=== PATIENT | female | born 1970 | race Caucasian/White ===

== ENCOUNTER 2016-10-26 07:00 | Inpatient (IN) | payer OTHER ==
[2016-10-26] MEDS ORDERED: DEXAMETHASONE SOD PHOSPHATE 10 MG/1 ML VIAL IVPB ONE (12:00)
[2016-10-26] MEDS ORDERED: IRON SUCROSE INJECTION 200 MG in SODIUM CHLORIDE 100 ML IVPB ONE (12:00)
[2016-10-26 14:56] LABS: MCH 22.3 pg (25.7-33.7); PLATELET COUNT 340 K/MM3 (134-434); RDW 26.5 % (11.6-15.6); WHITE BLOOD COUNT 5.7 K/mm3 (4.0-10.0)
[2016-10-26 15:27] LABS: ALBUMIN 3.3 g/dl (3.4-5.0); ALK PHOS 101 U/L (45-117); ANION GAP 12 (8-16); BILIRUBIN,TOTAL 0.2 mg/dL (0.2-1.0); CALCIUM 7.7 mg/dL (8.5-10.1); CO2 19 mmol/L (21-32); CREATININE 0.7 mg/dL (0.55-1.02); GLUCOSE,RANDOM 160 mg/dL (74-106); SGOT/AST 20 U/L (15-37); SGPT/ALT 22 U/L (12-78); TOT PROT 6.2 g/dl (6.4-8.2)
--- NOTE | 2016-10-26 17:34 | CONSULT ---
Consult - text type - Consultation Consultation Note: - Chief Complaint Chief Complaint: Here for elective IV iron infusion. No fever/chills/cough/SOB/ abdominal pain. no active bleeding. Reports having felt oozy and dizzy last night around 1 am when she got up from sleep to go to the rest room. she felt dizzy and syncopized. she hit her head No urinary symptoms Recently had D and C. Also had EGD History Source: Patient - Past Medical History Allergies/Adverse Reactions: Gastrointestinal: Yes: Other (BARIATRIC SURGERY, bleeding GI ulcers) Heme/Onc: Yes: Anemia, B12 Deficiency Musculoskeletal: Yes: Other (C-spine surgery) Physical Exam AFVSS General Appearance: Well Nourished, Well Developed, Alert & Oriented x3 Lung: Clear to auscultation, Normal air movement Heart: Regular rate & rhythm, Normal S1, Normal S2 Abdomen: Soft, No tenderness, Normal bowel sounds Extremities: No edema Neurological: Intact - Impression/Plan Impression: Iron deficiency anemia. OnIV iron. Had 1/[address] Francisco Needs to f/u for colonoscopy Had D and C with Dr. Boyle May be getting uterine artery embolization Continie IV iron syncope --dizziness and ooziness at 1am before syncope ?? related to tylenol PM/ polypharmacy will get CT head further w/u per primary team
[2016-10-26 17:50] LABS: ANISOCYTOSIS 3+; HYPOCHROMIA 1+; MICROCYTOSIS 2+; TEAR DROP CELLS 1+
[2016-10-26] MEDS ORDERED: LIDOCAINE 2% PO PRN (18:36)
[2016-10-26] MEDS ORDERED: VISCOUS PO PRN (18:36)
[2016-10-26] MEDS ORDERED: PATIENT'S OWN MEDICATION (NON-FORMULARY) (Cholecalciferol (Vitamin D3) [Vitamin D3] 50,000 PO SCH (18:45)
--- NOTE | 2016-10-26 18:51 | HP ---
CHIEF COMPLAINT: syncope PCP: Dr. Hernandez HISTORY OF PRESENT ILLNESS: 46 year old female with a PMHx of iron deficiency anemia due to gastrointestinal losses, s/p gastric bypass,and a history of menorrhagia, complaining of a syncopal episode last night. This past claims that she has many episodes of near-fainting experiences,but last night she actually fainted, duration unknown and not witnessed. Patient states that she was on her way to the bathroom at 1 am in the morning, she fell lightheaded, and lost consciousness. She claims to have hit her head and her right arm, no open lacerations or abrasions. No other bodily injury. Patient did not experience incontinence or tongue biting. Patient states that she did take two Tylenol pm last night. Patient is on multiple home medications for depression, pain control , insommnia, listed below. Patient is seen by Dr. Lee, for iron deficiency anemia. Patient is supposed to get iron infusions every week. Dr. Lee states she is somewhat non compliant. Denies fever, chills, n, v, chest pain, changes in bowel or bladder. Recent Travel:no PAST MEDICAL HISTORY: Iron deficiency anemia; PAST SURGICAL HISTORY: gastric bypass, cholecystectomy, c section x4 Social History: Smoking:no Alcohol:no Drugs: no Family History: Allergies No Known Drug Allergies Allergy (Unknown, Verified 04/20/16 15:54) tape Allergy (Mild, Uncoded 04/20/16 15:54) Rash HOME MEDICATIONS: Home Medications Medication Instructions Recorded Buspirone HCl [Buspar -] 10 mg PO BID 12/18/15 Calcium Carbonate/Vitamin D3 1 each PO DAILY 12/18/15 [Calcium 600 + Vit D 400 Softgl] Cholecalciferol (Vitamin D3) 50,000 unit PO WEEKLY 12/18/15 [Vitamin D3] Diclofenac Sodium [Voltaren] 100 gm TP BID 12/18/15 Ferrous Sulfate 325 mg PO DAILY 12/18/15 Gabapentin 300 mg PO TID 12/18/15 Hydroxyzine Pamoate [Vistaril -] 50 mg PO DAILY 12/18/15 Loratadine [Claritin -] 10 mg PO DAILY 12/18/15 Multivitamins [Multivit ([facility] 1 tab PO DAILY 12/18/15 Formulary)] Ranitidine [Zantac -] 150 mg PO BID 12/18/15 Simethicone [Phazyme] 180 mg PO DAILY 12/18/15 Tizanidine HCl 2 mg PO TID 12/18/15 Acetaminophen [Tylenol .Regular 650 mg PO Q6H PRN #0 tablet 04/21/16 Strength -] Mag Hydrox/Alh/Smc/Dpha/Lido 5 ml MM Q6HPO #1 bottle 04/21/16 [Magic Mouthwash *Sjr Formula* -] Amoxicillin 500 mg PO BID 10/26/16 Benadryl Capsule - 25 mg PO HS 10/26/16 Dulcolax Stool Softener 1 PO BID PRN 10/26/16 Lidocaine 2% Viscous Oral 10/26/16 Ondansetron 8 mg PO DAILY 10/26/16 Zoloft 50 mg PO DAILY 10/26/16 REVIEW OF SYSTEMS CONSTITUTIONAL: Positive:lightheadedness Absent: fever, chills, diaphoresis, generalized weakness, malaise, loss of appetite, weight change HEENT: Absent: rhinorrhea, nasal congestion, throat pain, throat swelling, difficulty swallowing, mouth swelling, ear pain, eye pain, visual changes CARDIOVASCULAR: Absent: chest pain, syncope, palpitations, irregular heart rate, lightheadedness , peripheral edema RESPIRATORY: Absent: cough, shortness of breath, dyspnea with exertion, orthopnea, wheezing, stridor, hemoptysis GASTROINTESTINAL: Absent: abdominal pain, abdominal distension, nausea, vomiting, diarrhea, constipation, melena, hematochezia GENITOURINARY: Absent: dysuria, frequency, urgency, hesitancy, hematuria, flank pain, genital pain MUSCULOSKELETAL: Positive: arthralgia Absent: myalgia, joint swelling, back pain, neck pain SKIN: Absent: rash, itching, pallor HEMATOLOGIC/IMMUNOLOGIC: Absent: easy bleeding, easy bruising, lymphadenopathy, frequent infections ENDOCRINE: Absent: unexplained weight gain, unexplained weight loss, heat intolerance, cold intolerance NEUROLOGIC: Absent: headache, focal weakness or paresthesias, dizziness, unsteady gait, seizure, mental status changes, bladder or bowel incontinence PSYCHIATRIC: Absent: anxiety, depression, suicidal or homicidal ideation, hallucinations. PHYSICAL EXAMINATION GENERAL: Awake, alert, and fully oriented, in no acute distress. HEAD: Normal with no signs of trauma. MOuth muliple ulcers , tooth decay EYES: Pupils equal, round and reactive to light, extraocular movements intact, sclera anicteric, conjunctiva clear. No lid lag. EARS, NOSE, THROAT: Ears normal, nares patent, oropharynx clear without exudates. Moist mucous membranes. NECK: Normal range of motion, supple without lymphadenopathy, JVD, or masses. LUNGS: Breath sounds equal, clear to auscultation bilaterally. No wheezes, and no crackles. No accessory muscle use. HEART: Regular rate and rhythm, normal S1 and S2 without murmur, rub or gallop. ABDOMEN: Soft, nontender, not distended, normoactive bowel sounds, no guarding, no rebound, no masses. No hepatomegaly or splenomegaly. MUSCULOSKELETAL: Normal range of motion at all joints. No bony deformities or tenderness. No CVA tenderness. UPPER EXTREMITIES: 2+ pulses, warm, well-perfused. No cyanosis. No clubbing. Cap refill <2 seconds. No peripheral edema. LOWER EXTREMITIES: 2+ pulses, warm, well-perfused. No calf tenderness. No peripheral edema. NEUROLOGICAL: Cranial nerves II-XII intact. Normal speech. Normal gait. PSYCHIATRIC: Cooperative. Good eye contact. Appropriate mood and affect. SKIN: Warm, dry, normal turgor, no rashes or lesions noted. Laboratory Results - last 24 hr 10/26/16 10/26/16 14:30 14:30 WBC 5.7 D RBC 4.37 Hgb 9.8 L D Hct 31.5 L MCV 72.0 L MCHC 31.0 L RDW 26.5 H Plt Count 340 D MPV 7.0 L Hypochromic-Microcytic 1+ Anisocytosis 3+ Microcytosis 2+ Tear Drop Cells 1+ Sodium 142 Potassium 3.7 Chloride 111 H Carbon Dioxide 19 L Anion Gap 12 BUN 11 Creatinine 0.7 Creat Clearance w eGFR > 60 Random Glucose 160 H D Calcium 7.7 L Total Bilirubin 0.2 D AST 20 ALT 22 D Alkaline Phosphatase 101 Total Protein 6.2 L Albumin 3.3 L ASSESSMENT/PLAN: 46 yea old female with a history of iron deficiency anemia for which she gets weekly iron infusions, admitted for syncopal episode. 1. Syncope secondary to polypharmacy with sedative medications r/o neuro or cardiac causes -cbc H/H slightly low 9.8/31, she is usually lower -cbc, cmp, tsh, -john paul, cardiac monitoring, echo -head CT after negative b hcg -she is on multiple medications that cause sedation 2. Iron deficiency anemia: secondary to GI losses form gastric bypass -iron studies; -h/h low but not as low as usual for her -iron infusion today followed by Dr. Lee 3. Oral ulcers: -swish and swallow mouth wash FEN: Fluids: po intake Electrolytes : wnl Diet : regular VTE prophylaxis: ambulates Disposition await pending imaging/obs Problem List - Problem (1) Symptomatic anemia Code(s): D64.9 - ANEMIA, UNSPECIFIED (2) Menorrhagia Code(s): N92.0 - EXCESSIVE AND FREQUENT MENSTRUATION WITH REGULAR CYCLE Qualifiers: Menorrahagia type: with irregular cycle Qualified Code(s): N92.1 - Excessive and frequent menstruation with irregular cycle (3) Syncope and collapse Code(s): R55 - SYNCOPE AND COLLAPSE Visit type - Emergency Visit Emergency Visit: No - New Patient This patient is new to me today: Yes Date on this admission: 10/26/16 - Critical Care Critical Care patient: No
--- NOTE | 2016-10-26 19:13 | PN ---
Teaching Attending Note Name of Resident: Ingris Murry ATTENDING PHYSICIAN STATEMENT I saw and evaluated the patient. I reviewed the resident's note and discussed the case with the resident. I agree with the resident's findings and plan as documented. SUBJECTIVE: OBJECTIVE: HEART: LUNGS: ABDOMEN: EXTREMITIES: NEUROLOGICAL: ASSESSMENT AND PLAN:
[2016-10-26 20:34] LABS: THYROID STIMULATING HORMONE 0.52 uIU/ml (0.358-3.74); TROPONIN I < 0.02 ng/ml (0.00-0.05)
[2016-10-26] MEDS: busPIRone HCL 10 MG TABLET (FP) PO SCH (21:50)
[2016-10-26] MEDS: RANITIDINE HCL 150 MG TABLET (FP) PO SCH (21:51)
[2016-10-26] MEDS: ACETAMINOPHEN 325 MG TABLET (FP) PO PRN (21:51)
[2016-10-26] MEDS: GABAPENTIN 300 MG CAPSULE (FP) PO SCH (21:51)
[2016-10-26] MEDS ORDERED: PATIENT'S OWN MEDICATION (NON-FORMULARY) (Diclofenac Sodium [Voltaren] 100 GM) TP SCH (22:00)
[2016-10-26] MEDS ORDERED: PATIENT'S OWN MEDICATION (NON-FORMULARY) (Tizanidine Hcl [Tizanidine Hcl] 2 MG) PO SCH (22:00)
[2016-10-26] MEDS ORDERED: diphenhydrAMINE HCL 25 MG CAPSULE (FP) PO SCH (22:00)
[2016-10-27] MEDS: MAG HYDROX/ALH/SMC/DPHA/LIDO 240 ML MOUTHWASH MM SCH ×3 (01:10→12:20)
[2016-10-27] MEDS: GABAPENTIN 300 MG CAPSULE (FP) PO SCH ×2 (07:03→14:36)
[2016-10-27] MEDS: ACETAMINOPHEN 325 MG TABLET (FP) PO PRN ×2 (07:12→14:36)
[2016-10-27 07:23] LABS: BASOPHIL 0.7 % (0-2.0); EOSINOPHIL 0.8 % (0-4.5); MCH 22.8 pg (25.7-33.7); MCHC 31.7 g/dl (32.0-36.0); MEAN PLT VOLUME 7.1 fl (7.5-11.1); NEUTROPHILS 69.8 % (42.8-82.8); PLATELET COUNT 351 K/MM3 (134-434); RDW 25.8 % (11.6-15.6); WHITE BLOOD COUNT 7.7 K/mm3 (4.0-10.0)
[2016-10-27 07:43] LABS: ALBUMIN 3.1 g/dl (3.4-5.0); ANION GAP 9 (8-16); CALCIUM 8.1 mg/dL (8.5-10.1); CO2 23 mmol/L (21-32); CREATININE 0.5 mg/dL (0.55-1.02); GLUCOSE,RANDOM 85 mg/dL (74-106); SGOT/AST 12 U/L (15-37); SGPT/ALT 21 U/L (12-78)
[2016-10-27 07:45] LABS: ALK PHOS 93 U/L (45-117); BILIRUBIN,TOTAL 0.2 mg/dL (0.2-1.0); TOT PROT 5.8 g/dl (6.4-8.2)
[2016-10-27 08:13] LABS: FERRITIN 46.357 ng/ml (6.9-282.5)
[2016-10-27] MEDS ORDERED: LORATADINE 10 MG TABLET PO SCH (10:00)
[2016-10-27] MEDS ORDERED: FERROUS SO4 325 MG TABLET (FP) PO SCH (10:00)
[2016-10-27] MEDS ORDERED: SIMETHICONE 180 MG PO SCH (10:00)
[2016-10-27] MEDS ORDERED: CALCIUM 500MG/VIT-D 200 UNITS COMBO TABLET (FP) PO SCH (10:00)
[2016-10-27] MEDS ORDERED: ONDANSETRON 8 MG TABLET (FP) PO SCH (10:00)
[2016-10-27] MEDS ORDERED: hydrOXYzine PAMOATE 50 MG CAPSULE (FP) PO SCH (10:00)
[2016-10-27] MEDS ORDERED: MULTIVITAMINS (DAILY MVI) TABLET (FP) PO SCH (10:00)
[2016-10-27] MEDS ORDERED: SERTRALINE HCL 50 MG TABLET (FP) PO SCH (10:00)
[2016-10-27] MEDS ORDERED: AMOXICILLIN 500 MG CAPSULE (FP) PO SCH (10:00)
[2016-10-27] MEDS ORDERED: ONDANSETRON 4 MG TABLET PO ONE (11:19)
[2016-10-27] MEDS ORDERED: PT OWN MED DRAWER 7, Y5N ONE ×2 (11:20→11:42)
[2016-10-27] MEDS: RANITIDINE HCL 150 MG TABLET (FP) PO SCH (11:24)
[2016-10-27] MEDS: busPIRone HCL 10 MG TABLET (FP) PO SCH (11:25)
--- NOTE | 2016-10-27 13:04 | PN ---
Progress Note (short form) - Note Progress Note: Patient seen and examined Complains of left shoulder pains s/p fall Last Vital Signs Temp Pulse Resp BP Pulse Ox 99 F 64 20 120/79 98 10/27/16 08:06 10/27/16 08:06 10/27/16 08:06 10/27/16 08:06 10/26/16 21:00 HEENT: EWA, EOM Intact Oropharynx: No thrush, No mucositis Cor: RSR, No murmurs, No gallops Lungs: Clear to P&A Abd: Soft, Normal bowel sounds, No organomegaly Ext:No significant edema Skin: No rashes, Integument intact CBC, BMP 10/27/16 06:00 10/27/16 06:00 Current Medications Generic Name Dose Route Start Last Admin Trade Name Freq PRN Reason Stop Dose Admin Acetaminophen 650 mg 10/26/16 18:36 10/27/16 07:12 Tylenol - PO 650 mg Q6H PRN Administration FEVER OR PAIN Amoxicillin 500 mg 10/27/16 10:00 10/27/16 11:24 Amoxicillin - PO 10/29/16 10:01 500 mg BID TANNER Administration Buspirone HCl 10 mg 10/26/16 22:00 10/27/16 11:25 Buspar - PO 10 mg BID TANNER Administration Calcium Carbonate/Cholecalciferol 1 tab 10/27/16 10:00 10/27/16 11:24 Os-Sam 500+D - PO 1 tab DAILY TANNER Administration Diphenhydramine HCl 25 mg 10/26/16 22:00 10/26/16 21:50 Benadryl - PO 25 mg HS TANNER Administration Ferrous Sulfate 325 mg 10/27/16 10:00 10/27/16 11:24 Feosol - PO 325 mg DAILY TANNER Administration Gabapentin 300 mg 10/26/16 22:00 10/27/16 07:03 Neurontin - PO 300 mg TID TANNER Administration Hydroxyzine Pamoate 50 mg 10/27/16 10:00 10/27/16 11:25 Vistaril - PO 50 mg DAILY [facility]NER Administration Lidocaine/Aluminum/Magnesium/Simeth 5 ml 10/27/16 00:00 10/27/16 12:20 Magic Mouthwash *Sjr Formula* - MM 5 ml Q6HPO TANNER Administration Loratadine 10 mg 10/27/16 10:00 10/27/16 11:24 Claritin - PO 10 mg DAILY [facility] Administration Multivitamins/Minerals/Vitamin C 1 tab 10/27/16 10:00 10/27/16 11:24 Tab-A-Vit - PO 1 tab DAILY [facility] Administration Non-Formulary Medication 50,000 unit 10/26/16 18:45 Cholecalciferol (Vitamin D3) [Vitamin D3] PO WEEKLY [facility] Non-Formulary Medication 100 gm 10/26/16 22:00 Diclofenac Sodium [Voltaren] TP BID [facility] Non-Formulary Medication 0 cap 10/26/16 18:36 Lidocaine 2% Viscous Oral PO Q4H PRN PAIN Non-Formulary Medication 180 mg 10/27/16 10:00 Simethicone [Phazyme] PO DAILY [facility] Non-Formulary Medication 2 mg 10/26/16 22:00 Tizanidine Hcl [Tizanidine Hcl] PO TID [facility] Ondansetron HCl 8 mg 10/27/16 10:00 10/27/16 11:25 Zofran - PO 8 mg DAILY [facility] Administration Ranitidine HCl 150 mg 10/26/16 22:00 10/27/16 11:24 Zantac - PO 150 mg BID [facility] Administration Sertraline HCl 50 mg 10/27/16 10:00 10/27/16 11:24 Zoloft - PO 50 mg DAILY [facility] Administration Impression: Syncope Fe++ deficiency Negative non contrast Head CT ECHO- mild aortic insufficiency,mild mitral regurgitation Plan : X-rays of shoulder Continue with outpatient Fe++ Neuro/cardiac work up for syncope
[2016-10-27 14:43] VITALS: PULSE 75
--- NOTE | 2016-10-27 16:40 | DS ---
Physical Exam: SUBJECTIVE: Patient seen and examined OBJECTIVE: Vital Signs Period Temp Pulse Resp BP Sys/Bruno Pulse Ox Last 24 Hr 98.0 F-99 F 64-86 18-20 100-144/60-87 98 PHYSICAL EXAM GENERAL: The patient is awake, alert, and fully oriented, in no acute distress. HEAD: Normal with no signs of trauma. EYES: PERRL, extraocular movements intact, sclera anicteric, conjunctiva clear. ENT: Ears normal, nares patent, oropharynx clear without exudates, moist mucous membranes. NECK: Trachea midline, full range of motion, supple. LUNGS: Breath sounds equal, clear to auscultation bilaterally, no wheezes, no crackles, no accessory muscle use. HEART: Regular rate and rhythm, S1, S2 without murmur, rub or gallop. ABDOMEN: Soft, nontender, nondistended, normoactive bowel sounds, no guarding, no rebound, no hepatosplenomegaly, no masses. EXTREMITIES: 2+ pulses, warm, well-perfused, no edema. NEUROLOGICAL: Cranial nerves II through XII grossly intact. Normal speech, gait not observed. PSYCH: Normal mood, normal affect. SKIN: Warm, dry, normal turgor, no rashes or lesions noted. LABS Home Medications Medication Instructions Recorded Buspirone HCl [Buspar -] 10 mg PO BID 12/18/15 Calcium Carbonate/Vitamin D3 1 each PO DAILY 12/18/15 [Calcium 600 + Vit D 400 Softgl] Cholecalciferol (Vitamin D3) 50,000 unit PO WEEKLY 12/18/15 [Vitamin D3] Diclofenac Sodium [Voltaren] 100 gm TP BID 12/18/15 Ferrous Sulfate 325 mg PO DAILY 12/18/15 Gabapentin 300 mg PO TID 12/18/15 Hydroxyzine Pamoate [Vistaril -] 50 mg PO DAILY 12/18/15 Loratadine [Claritin -] 10 mg PO DAILY 12/18/15 Multivitamins [Multivit ([facility] 1 tab PO DAILY 12/18/15 Formulary)] Ranitidine [Zantac -] 150 mg PO BID 12/18/15 Simethicone [Phazyme] 180 mg PO DAILY 12/18/15 Tizanidine HCl 2 mg PO TID 12/18/15 Acetaminophen [Tylenol .Regular 650 mg PO Q6H PRN #0 tablet 04/21/16 Strength -] Mag Hydrox/Alh/Smc/Dpha/Lido 5 ml MM Q6HPO #1 bottle 04/21/16 [Magic Mouthwash *Sjr Formula* -] Amoxicillin 500 mg PO BID 10/26/16 Dulcolax Stool Softener 1 PO BID PRN 10/26/16 Lidocaine 2% Viscous Oral 10/26/16 Ondansetron 8 mg PO DAILY 10/26/16 Zoloft 50 mg PO DAILY 10/26/16 HOSPITAL COURSE: Date of Admission:10/26/16 Date of Discharge: 10/27/16 This is a 46 year old female with PMHx of iron deficiency anemia s/p gastric bypass,and a history of menorrhagia, presented with a syncopal episode. LOC time was unknown. She did admit to head and shoulder injury. NO tongue bitting or incontinence. Patient states that she did take two Tylenol pm that night. Patient is on many medications that could cause drowsiness, indicated above. Patient sees Dr. Lee for iron infusions due to a chronic history of iron deficiency anemia secondary to heavy menses. Patient has a history of multiple vitamin deficiencies due to gastric losses from gastric bypass surgery. Work up for syncopal episode included head ct, which was negative for acute pathology. Echocardiogram showed mild aortic stenosis and mild mitral valve regurgitation. Labs were within normal limits. Hemoglobin and hematocrit were actually above her baseline. CArdiogenic and neurgenic of syncopal episode was ruled out. Most likely related to multiple medication and side effects. Advised to see primary, waiter/waitress buffet as outpatient for further evaluation. Also advised to continue IV iron replacement and vitamin replacement. Left should xray was negative for acute fracture. Minutes to complete discharge: 40 Discharge Summary Reason For Visit: ANEMIA Current Active Problems Syncope and collapse (Acute) Menorrhagia (Chronic) Symptomatic anemia (Chronic) Condition: Improved - Instructions Diet, Activity, Other Instructions: Ms Denise, your fainting or syncopal episode has been worked up in the hospital. We did not find any acute abnormalities. We would like you to follow up with you waiter/waitress buffet to continue your iron infusions. We would also recommend continuing with daily vitamin and sufficient water intake. We would refrain from taking any medications that can cause increased sedation. We would also recommend you follow up with you PREVENTIVE MAINTENANCE COORDINATOR regarding your heavy menstrual cycle. If you experience any worsening of symptoms please return to the emergency room. Disposition: HOME - Home Medications Comprehensive Discharge Medication List: Ambulatory Orders Buspirone HCl [Buspar -] 10 mg PO BID 12/18/15 Calcium Carbonate/Vitamin D3 [Calcium 600 + Vit D 400 Softgl] 1 each PO DAILY Cholecalciferol (Vitamin D3) [Vitamin D3] 50,000 unit PO WEEKLY 12/18/15 Diclofenac Sodium [Voltaren] 100 gm TP BID 12/18/15 Ferrous Sulfate 325 mg PO DAILY 12/18/15 Gabapentin 300 mg PO TID 12/18/15 Hydroxyzine Pamoate [Vistaril -] 50 mg PO DAILY 12/18/15 Loratadine [Claritin -] 10 mg PO DAILY 12/18/15 Multivitamins [Multivit ([facility] Formulary)] 1 tab PO DAILY 12/18/15 Ranitidine [Zantac -] 150 mg PO BID 12/18/15 Simethicone [Phazyme] 180 mg PO DAILY 12/18/15 Tizanidine HCl 2 mg PO TID 12/18/15 Acetaminophen [Tylenol .Regular Strength -] 650 mg PO Q6H PRN #0 tablet Mag Hydrox/Alh/Smc/Dpha/Lido [Magic Mouthwash *[facility] Formula* -] 5 ml MM Q6HPO #1 bottle 04/21/16 Amoxicillin 500 mg PO BID 10/26/16 Dulcolax Stool Softener 1 PO BID PRN 10/26/16 Lidocaine 2% Viscous Oral 10/26/16 Ondansetron 8 mg PO DAILY 10/26/16 Zoloft 50 mg PO DAILY 10/26/16 Problem List - Problems (1) Symptomatic anemia Code(s): D64.9 - ANEMIA, UNSPECIFIED (2) Menorrhagia Code(s): N92.0 - EXCESSIVE AND FREQUENT MENSTRUATION WITH REGULAR CYCLE Qualifiers: Menorrahagia type: with irregular cycle Qualified Code(s): N92.1 - Excessive and frequent menstruation with irregular cycle (3) Syncope and collapse Code(s): R55 - SYNCOPE AND COLLAPSE This patient is new to me today: No Emergency Visit: No Critical Care patient: No - Discharge Referral Referred to [facility] Med P.C.: No
[2016-10-27 18:41] VITALS: BP 124/85; TEMP 98.7
--- NOTE | 2016-10-28 13:41 | EKG ---
Test Reason : Blood Pressure : / mmHG Vent. Rate : 077 BPM Atrial Rate : 077 BPM P-R Int : 142 ms QRS Dur : 078 ms QT Int : 388 ms P-R-T Axes : 040 035 023 degrees QTc Int : 439 ms NORMAL SINUS RHYTHM NORMAL ECG WHEN COMPARED WITH ECG OF 16-FEB-2015 00:44, NO SIGNIFICANT CHANGE WAS FOUND Confirmed by NICHOLE BEACH MD ([id number]) on 10/28/2016 1:40:28 PM Referred By: Confirmed By:NICHOLE BEACH MD
== END 2016-10-27 18:56 | disposition home or self-care (01) | DRG 204 ==
LOC: J7W 07:00 → JINFUSION 07:00 → J7W 18:26
PROVIDERS: ADMIT Internal Medicine; ATTEND Internal Medicine
PROC: 3E033GC Introduction of Other Therapeutic Substance into Peripheral Vein, Percutaneous Approach (ICD-10-PCS; principal; 2016-10-26)
DX: R55 Syncope and collapse (principal); T50.995A Adverse effect of other drugs, medicaments and biological substances, initial encounter; D50.9 Iron deficiency anemia, unspecified; N92.1 Excessive and frequent menstruation with irregular cycle; Z98.84 Bariatric surgery status; K12.1 Other forms of stomatitis; M25.512 Pain in left shoulder
CPT/HCPCS: 36415; 70450-TC; 73030-TC-LT; 80053; 82550; 82728; 84443; 84484; 84703; 85025; 85027; 93005; 93010; 93306-TC; 96365; J1756

== ENCOUNTER 2016-11-24 10:59 | Inpatient (IN) | payer OTHER ==
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
[2016-11-24] MEDS ORDERED: SODIUM CHLORIDE 1,000 ML IV ONE (11:44)
[2016-11-24 12:38] LABS: BASOPHIL 0.6 % (0-2.0); EOSINOPHIL 3.8 % (0-4.5); MCH 22.7 pg (25.7-33.7); MCHC 30.2 g/dl (32.0-36.0); MEAN CELL VOLUME 74.9 fl (80-96); MEAN PLT VOLUME 7.4 fl (7.5-11.1); NEUTROPHILS 59.2 % (42.8-82.8); PLATELET COUNT 389 K/MM3 (134-434); RDW 25.5 % (11.6-15.6); WHITE BLOOD COUNT 8.8 K/mm3 (4.0-10.0)
[2016-11-24 13:44] LABS: ALBUMIN 2.8 g/dl (3.4-5.0); ANION GAP 13 (8-16); BILIRUBIN,TOTAL 0.3 mg/dL (0.2-1.0); CALCIUM 7.6 mg/dL (8.5-10.1); CO2 17 mmol/L (21-32); CREATININE 0.7 mg/dL (0.55-1.02); GLUCOSE,RANDOM 112 mg/dL (74-106); SGOT/AST 13 U/L (15-37); SGPT/ALT 11 U/L (12-78); TOT PROT 4.8 g/dl (6.4-8.2)
[2016-11-24 13:47] LABS: ALK PHOS 71 U/L (45-117); TROPONIN I < 0.02 ng/ml (0.00-0.05)
[2016-11-24 13:51] LABS: ANISOCYTOSIS 2+; HYPOCHROMIA 2+; MICROCYTOSIS 1+
[2016-11-24 14:25] LABS: INR 1.23 (0.82-1.09); PROTHROMBIN TIME (PATIENT) 13.6 SEC (9.98-11.88)
[2016-11-24 15:24] LABS: ALBUMIN 2.4 g/dl (3.4-5.0); ANION GAP 10 (8-16); BILIRUBIN,TOTAL 0.2 mg/dL (0.2-1.0); CO2 18 mmol/L (21-32); CREATININE 0.5 mg/dL (0.55-1.02); GLUCOSE,RANDOM 97 mg/dL (74-106); SGOT/AST 6 U/L (15-37); SGPT/ALT 9 U/L (12-78); TOT PROT 4.2 g/dl (6.4-8.2)
[2016-11-24 15:26] LABS: ALK PHOS 61 U/L (45-117); TROPONIN I 0.02 ng/ml (0.00-0.05)
[2016-11-24 16:58] LABS: URINE APPEARANCE CLEAR; URINE BILIRUBIN NEGATIVE (NEGATIVE); URINE BLOOD NEGATIVE (NEGATIVE); URINE COLOR STRAW; URINE GLUCOSE (UA) NEGATIVE (NEGATIVE); URINE KETONE NEGATIVE (NEGATIVE); URINE LEUK ESTERASE NEGATIVE (NEGATIVE); URINE NITRITE NEGATIVE (NEGATIVE); URINE PROTEIN NEGATIVE (NEGATIVE); URINE UROBILINOGEN NEGATIVE E.U./dl (0.2-1.0)
--- NOTE | 2016-11-24 17:02 | HP ---
CHIEF COMPLAINT: pre syncope x 1 PCP: HISTORY OF PRESENT ILLNESS: 46 year old female presents complaining of generalized weakness, fatigue and episode of pre syncope. No LOC . states that her BP fluctuates and she had previous episodes of syncope in the past Denies palpitations or seizure disorder Recent Travel:no PAST MEDICAL HISTORY: Iron Deficiency Anemia- transfusion dependent Uterine Fibroids Depression PAST SURGICAL HISTORY: Gastric Bypass' C section x 4 Tubal Ligation Cholecystectomy Social History: Smoking:denies Alcohol:denies Drugs: denies Family History: Thyroid and Breast Ca mother Allergies No Known Drug Allergies Allergy (Unknown, Verified 11/24/16 11:17) tape Allergy (Mild, Uncoded 11/24/16 11:17) Rash HOME MEDICATIONS: Home Medications Medication Instructions Recorded Buspirone HCl [Buspar -] 10 mg PO BID 12/18/15 Calcium Carbonate/Vitamin D3 1 each PO DAILY 12/18/15 [Calcium 600 + Vit D 400 Softgl] Cholecalciferol (Vitamin D3) 50,000 unit PO WEEKLY 12/18/15 [Vitamin D3] Diclofenac Sodium [Voltaren] 100 gm TP BID 12/18/15 Ferrous Sulfate 325 mg PO DAILY 12/18/15 Gabapentin 300 mg PO TID 12/18/15 Hydroxyzine Pamoate [Vistaril -] 50 mg PO DAILY 12/18/15 Loratadine [Claritin -] 10 mg PO DAILY 12/18/15 Multivitamins [Multivit ([facility] 1 tab PO DAILY 12/18/15 Formulary)] Ranitidine [Zantac -] 150 mg PO BID 12/18/15 Simethicone [Phazyme] 180 mg PO DAILY 12/18/15 Tizanidine HCl 2 mg PO TID 12/18/15 Acetaminophen [Tylenol .Regular 650 mg PO Q6H PRN #0 tablet 04/21/16 Strength -] Mag Hydrox/Alh/Smc/Dpha/Lido 5 ml MM Q6HPO #1 bottle 04/21/16 [Magic Mouthwash *Sjr Formula* -] Lidocaine 2% Viscous Oral 20 ml PO TID 11/24/16 [Xylocaine 2% Viscous Oral -] Ondansetron [Zofran *Odt*] 8 mg SL DAILY 11/24/16 Sertraline HCl [Zoloft] 50 mg PO DAILY 11/24/16 REVIEW OF SYSTEMS CONSTITUTIONAL: Absent: fever, chills, diaphoresis HEENT: Absent: rhinorrhea, nasal congestion, throat pain, throat swelling, difficulty swallowing, mouth swelling, ear pain, eye pain, visual changes CARDIOVASCULAR: Absent: chest pain, syncope, palpitations, irregular heart rate, lightheadedness , peripheral edema RESPIRATORY: Absent: cough, shortness of breath, dyspnea with exertion, orthopnea, wheezing, stridor, hemoptysis GASTROINTESTINAL: Absent: abdominal pain, abdominal distension, nausea, vomiting, diarrhea, constipation, melena, hematochezia GENITOURINARY: Absent: dysuria, frequency, urgency, hesitancy, hematuria, flank pain, genital pain MUSCULOSKELETAL: Absent: myalgia, arthralgia, joint swelling, back pain, neck pain SKIN: Absent: rash, itching, pallor HEMATOLOGIC/IMMUNOLOGIC: Absent: easy bleeding, easy bruising, lymphadenopathy, frequent infections ENDOCRINE: Absent: unexplained weight gain, unexplained weight loss, heat intolerance . Present : cold intolerance NEUROLOGIC: Absent: headache, unsteady gait, seizure, mental status changes, bladder or bowel incontinence. Present : Dizziness , Paresthesias , numbness PSYCHIATRIC: Absent: anxiety, suicidal or homicidal ideation, hallucinations. PHYSICAL EXAMINATION GENERAL: Awake, alert, and fully oriented, in no acute distress. HEAD: Normal with no signs of trauma. EYES: Pupils equal, round and reactive to light, extraocular movements intact, sclera anicteric, conjunctiva clear. No lid lag. EARS, NOSE, THROAT: Ears normal, nares patent, oropharynx clear without exudates. Moist mucous membranes. NECK: Normal range of motion, supple without lymphadenopathy, JVD, or masses. LUNGS: Breath sounds equal, clear to auscultation bilaterally. No wheezes, and no crackles. No accessory muscle use. HEART: Regular rate and rhythm, normal S1 and S2 without murmur, rub or gallop. ABDOMEN: Soft, nontender, not distended, normoactive bowel sounds, no guarding, no rebound, no masses. No hepatomegaly or splenomegaly. MUSCULOSKELETAL: Normal range of motion at all joints. No bony deformities or tenderness. No CVA tenderness. UPPER EXTREMITIES: 2+ pulses, warm, well-perfused. No cyanosis. No clubbing. No peripheral edema. LOWER EXTREMITIES: 2+ pulses, warm, well-perfused. No calf tenderness. No peripheral edema. NEUROLOGICAL: Cranial nerves II-XII intact. Normal speech. Normal gait. PSYCHIATRIC: Cooperative. Good eye contact. Appropriate mood and affect. SKIN: DRY , Extreme PALLOR Abnormal Lab Results 11/24/16 11/24/16 11/24/16 11:49 11:49 12:15 Hgb 8.9 L Hct 29.3 L MCV 74.9 L MCHC 30.2 L RDW 25.5 H MPV 7.4 L INR 1.23 H Potassium Chloride 110 H Carbon Dioxide 17 L D BUN 24 H D Creatinine Random Glucose 112 H D Calcium 7.6 L AST 13 L ALT 11 L D Total Protein 4.8 L Albumin 2.8 L 11/24/16 15:08 Hgb Hct MCV MCHC RDW MPV INR Potassium 5.7 H Chloride 114 H Carbon Dioxide 18 L BUN 27 H Creatinine 0.5 L D Random Glucose Calcium 7.0 L AST 6 L D ALT 9 L Total Protein 4.2 L Albumin 2.4 L ASSESSMENT/PLAN: 46 year old female with pre syncopal episodes , postural dizziness , mild hyperkalemia and hypotension . - observe on telemetry - IVF -Orthostatic vitals - AM cortisol level -TSH , Cortisol levels Visit type - Emergency Visit Emergency Visit: Yes ED Registration Date: 11/24/16 Care time: The patient presented to the Emergency Department on the above date and was hospitalized for further evaluation of their emergent condition. - New Patient This patient is new to me today: Yes Date on this admission: 11/24/16 - Critical Care Critical Care patient: No
[2016-11-24] MEDS: SODIUM CHLORIDE 1,000 ML IV SCH (18:36)
--- NOTE | 2016-11-24 19:06 | HOSP ---
Subjective - Review of Symptoms Events since last encounter: Called by the nurse that patient had large Tarry stool. hemoglobin of 8.9, will repeat stat, also type and cross ordered, and transfuse if hemoglobin drops below 7.0. Patient gets Iron infusion by Rosa MCKINLEY but this morning took 2 motrin for pain # Acute gastritis due to most likely Motrin # symptomatic anemia transfeuse if needed. Vital Signs Temperature 98 F 11/24/16 18:06 Pulse Rate 78 11/24/16 18:06 Respiratory Rate 18 11/24/16 18:06 Blood Pressure 118/70 11/24/16 18:06 O2 Sat by Pulse Oximetry (%) 100 11/24/16 18:06 Current Medications Generic Name Dose Route Start Last Admin Trade Name Freq PRN Reason Stop Dose Admin Sodium Chloride 1,000 mls @ 100 mls/hr 11/24/16 17:00 11/24/16 18:36 Normal Saline - IV 100 mls/hr ASDIR TANNER Administration CBCD WBC 8.8 K/mm3 (4.0-10.0) 11/24/16 11:49 RBC 3.91 M/mm3 (3.60-5.2) 11/24/16 11:49 Hgb 8.9 GM/dL (10.7-15.3) L 11/24/16 11:49 Hct 29.3 % (32.4-45.2) L 11/24/16 11:49 MCV 74.9 fl (80-96) L 11/24/16 11:49 MCHC 30.2 g/dl (32.0-36.0) L 11/24/16 11:49 RDW 25.5 % (11.6-15.6) H 11/24/16 11:49 Plt Count 389 K/MM3 (134-434) 11/24/16 11:49 MPV 7.4 fl (7.5-11.1) L 11/24/16 11:49 CMP Sodium 142 mmol/L (136-145) 11/24/16 15:08 Potassium 5.7 mmol/L (3.5-5.1) H 11/24/16 15:08 Chloride 114 mmol/L (98-107) H 11/24/16 15:08 Carbon Dioxide 18 mmol/L (21-32) L 11/24/16 15:08 Anion Gap 10 (8-16) 11/24/16 15:08 BUN 27 mg/dL (7-18) H 11/24/16 15:08 Creatinine 0.5 mg/dL (0.55-1.02) L D 11/24/16 15:08 Creat Clearance w eGFR > 60 (>60) 11/24/16 15:08 Random Glucose 97 mg/dL (74-106) 11/24/16 15:08 Calcium 7.0 mg/dL (8.5-10.1) L 11/24/16 15:08 Total Bilirubin 0.2 mg/dL (0.2-1.0) D 11/24/16 15:08 AST 6 U/L (15-37) L D 11/24/16 15:08 ALT 9 U/L (12-78) L 11/24/16 15:08 Alkaline Phosphatase 61 U/L (45-117) 11/24/16 15:08 Total Protein 4.2 g/dl (6.4-8.2) L 11/24/16 15:08 Albumin 2.4 g/dl (3.4-5.0) L 11/24/16 15:08 CARDIAC ENZYMES Creatine Kinase 36 IU/L (26-192) 11/24/16 15:08 Troponin I 0.02 ng/ml (0.00-0.05) 11/24/16 15:08 GI consult Claudia Mckinley hematology Critical care 35 minutes Physical Examination Vital Signs: Vital Signs Temperature 98 F 11/24/16 18:06 Pulse Rate 78 11/24/16 18:06 Respiratory Rate 18 11/24/16 18:06 Blood Pressure 118/70 11/24/16 18:06 O2 Sat by Pulse Oximetry (%) 100 11/24/16 18:06
[2016-11-24 19:09] LABS: MCH 22.7 pg (25.7-33.7); MCHC 30.9 g/dl (32.0-36.0); MEAN CELL VOLUME 73.5 fl (80-96); MEAN PLT VOLUME 7.3 fl (7.5-11.1); PLATELET COUNT 308 K/MM3 (134-434); RDW 25.4 % (11.6-15.6); WHITE BLOOD COUNT 7.6 K/mm3 (4.0-10.0)
[2016-11-24] MEDS: PANTOPRAZOLE SODIUM 80 MG in SODIUM CHLORIDE 100 ML IVPB SCH (20:39)
[2016-11-25] MEDS: PANTOPRAZOLE SODIUM 80 MG in SODIUM CHLORIDE 100 ML IVPB SCH ×2 (06:13→17:24)
[2016-11-25 06:24] LABS: BASOPHIL 0.7 % (0-2.0); EOSINOPHIL 2.9 % (0-4.5); MCHC 31.7 g/dl (32.0-36.0); MEAN CELL VOLUME 75.7 fl (80-96); MEAN PLT VOLUME 7.4 fl (7.5-11.1); PLATELET COUNT 268 K/MM3 (134-434); WHITE BLOOD COUNT 5.7 K/mm3 (4.0-10.0)
[2016-11-25 07:17] LABS: CALCIUM 7.6 mg/dL (8.5-10.1); CREATININE 0.6 mg/dL (0.55-1.02)
[2016-11-25 07:24] LABS: THYROID STIMULATING HORMONE 1.95 uIU/ml (0.358-3.74)
[2016-11-25] MEDS ORDERED: ACETAMINOPHEN 325 MG TABLET (FP) PO PRN (08:26)
[2016-11-25] MEDS ORDERED: PATIENT'S OWN MEDICATION (NON-FORMULARY) (Cholecalciferol (Vitamin D3) [Vitamin D3] 50,000 PO SCH (08:30)
[2016-11-25] MEDS ORDERED: PT OWN MED DRAWER 7, Y5N ONE ×2 (09:06→23:01)
[2016-11-25] MEDS ORDERED: RANITIDINE HCL 150 MG TABLET (FP) PO SCH (10:00)
[2016-11-25] MEDS ORDERED: hydrOXYzine PAMOATE 50 MG CAPSULE (FP) PO SCH (10:00)
[2016-11-25] MEDS ORDERED: PATIENT'S OWN MEDICATION (NON-FORMULARY) (Diclofenac Sodium [Voltaren] 100 GM) TP SCH (10:00)
[2016-11-25] MEDS ORDERED: SIMETHICONE 180 MG PO SCH (10:00)
[2016-11-25] MEDS ORDERED: FERROUS SO4 325 MG TABLET (FP) PO SCH (10:00)
[2016-11-25] MEDS ORDERED: CALCIUM 500MG/VIT-D 200 UNITS COMBO TABLET (FP) PO SCH (10:00)
[2016-11-25] MEDS ORDERED: SERTRALINE HCL 50 MG TABLET (FP) PO SCH (10:00)
[2016-11-25] MEDS ORDERED: MULTIVITAMINS (DAILY MVI) TABLET (FP) PO SCH (10:00)
[2016-11-25] MEDS ORDERED: busPIRone HCL 10 MG TABLET (FP) PO SCH (10:00)
[2016-11-25] MEDS ORDERED: LORATADINE 10 MG TABLET PO SCH (10:00)
[2016-11-25 10:51] LABS: MCH 24.3 pg (25.7-33.7); MCHC 32.6 g/dl (32.0-36.0); MEAN CELL VOLUME 74.5 fl (80-96); MEAN PLT VOLUME 7.2 fl (7.5-11.1); PLATELET COUNT 240 K/MM3 (134-434); RDW 22.4 % (11.6-15.6); WHITE BLOOD COUNT 5.4 K/mm3 (4.0-10.0)
[2016-11-25] MEDS ORDERED: MAG HYDROX/ALH/SMC/DPHA/LIDO 240 ML MOUTHWASH MM SCH (12:00)
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
[2016-11-25] MEDS ORDERED: GABAPENTIN 300 MG CAPSULE (FP) PO SCH (14:00)
[2016-11-25] MEDS ORDERED: PATIENT'S OWN MEDICATION (NON-FORMULARY) (Tizanidine Hcl [Tizanidine Hcl] 2 MG) PO SCH (14:00)
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
[2016-11-25 15:03] LABS: MCH 24.1 pg (25.7-33.7); MCHC 32.1 g/dl (32.0-36.0); MEAN PLT VOLUME 7.1 fl (7.5-11.1); PLATELET COUNT 233 K/MM3 (134-434); WHITE BLOOD COUNT 5.1 K/mm3 (4.0-10.0)
--- NOTE | 2016-11-25 15:12 | CONSULT ---
Consult Referred by:: Hematology-oncology Reason for Consultation:: GI bleeding - History of Present Illness Chief Complaint: GI bleding . History of ulcer disease, gastric bypass, adn receiving Fe++ infusions. 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) Cardio/Vascular: Yes: Aortic Insufficiency, Mitral Insufficiency ...LMP: 11/17/16 ...: No ...: 7 ...Para: 4 Heme/Onc: Yes: Anemia, B12 Deficiency, Other (Fe++deficiency) Psych: Yes: Anxiety Musculoskeletal: Yes: Other (C-spine surgery) Endocrine: Yes: Other (vitamin D deficiency) - Past Surgical History Past Surgical History: Yes: Bariatric Surgery, Colonoscopy, (x4), Tubal Ligation (2003), Upper Endoscopy - Alcohol/Substance Use Hx Alcohol Use: No - Smoking History Smoking history: Never smoked Have you smoked in the past 12 months: No - Social History Usual Living Arrangement: With Significant Other ADL: Independent Home Medications - Allergies Allergies/Adverse Reactions: Allergies Allergy/AdvReac Type Severity Reaction Status Date / Time No Known Drug Allergies Allergy Unknown Verified 11/24/16 11:17 tape Allergy Mild Rash Uncoded 11/24/16 11:17 - Home Medications Home Medications: Ambulatory Orders Buspirone HCl [Buspar -] 10 mg PO BID 12/18/15 Calcium Carbonate/Vitamin D3 [Calcium 600 + Vit D 400 Softgl] 1 each PO DAILY Cholecalciferol (Vitamin D3) [Vitamin D3] 50,000 unit PO WEEKLY 12/18/15 Diclofenac Sodium [Voltaren] 100 gm TP BID 12/18/15 Ferrous Sulfate 325 mg PO DAILY 12/18/15 Gabapentin 300 mg PO TID 12/18/15 Hydroxyzine Pamoate [Vistaril -] 50 mg PO DAILY 12/18/15 Loratadine [Claritin -] 10 mg PO DAILY 12/18/15 Multivitamins [Multivit ([facility] Formul[facility])] 1 tab PO DAILY 12/18/15 Ranitidine [Zantac -] 150 mg PO BID 12/18/15 Simethicone [Phazyme] 180 mg PO DAILY 12/18/15 Tizanidine HCl 2 mg PO TID 12/18/15 Acetaminophen [Tylenol .Regular Strength -] 650 mg PO Q6H PRN #0 tablet Mag Hydrox/Alh/Smc/Dpha/Lido [Magic Mouthwash *Sjr Formula* -] 5 ml MM Q6HPO #1 bottle 04/21/16 Lidocaine 2% Viscous Oral [Xylocaine 2% Viscous Oral -] 20 ml PO TID 11/24/16 Ondansetron [Zofran *Odt*] 8 mg SL DAILY 11/24/16 Sertraline HCl [Zoloft] 50 mg PO DAILY 11/24/16 Family Disease History - Family Disease History Family Disease History: CA: Father (prostate), Mother (breast & thyroid CA w/ mets to lymph node), Sister (vaginal/cervical CA), Other: Brother (chronic asthma) Review of Systems - Review of Systems Constitutional: reports: Weakness Eyes: denies: Blurred Vision, Double Vision HENT: denies: Difficult Swallowing, Epistaxis, Throat Pain, Ringing in Ears, Other Neck: denies: Swollen Glands, Tenderness Cardiovascular: reports: Shortness of Breath. denies: Chest Pain Respiratory: reports: SOB, SOB on Exertion Gastrointestinal: reports: Rectal Bleeding. denies: Dysphagia, Nausea, Vomiting , Vomiting Blood Genitourinary: denies: Burning, Dysuria, Flank Pain Breasts: reports: No Symptoms Reported Musculoskeletal: denies: Back Pain Integumentary: denies: Blister, Eczema Neurological: reports: Other (near syncope) Physical Exam Vital Signs: Vital Signs Temperature 98 F 11/25/16 14:05 Pulse Rate 79 11/25/16 14:05 Respiratory Rate 20 11/25/16 14:05 Blood Pressure 128/71 11/25/16 14:05 O2 Sat by Pulse Oximetry (%) 98 11/25/16 11:03 Constitutional: Yes: Mild Distress Eyes: Yes: EOM Intact, PERRL. No: Cataracts, Diplopia, Ptosis, Sclera Icterus HENT: Yes: Normocephalic. No: Epistaxis, Pharyngeal Erythema, Tonsillar Exudate Neck: Yes: Supple, Trachea Midline. No: Decreased ROM, Lymphadenopathy, Tenderness, Thyromegaly Cardiovascular: Yes: Regular Rate and Rhythm Respiratory: Yes: Regular, CTA Bilaterally Gastrointestinal: Yes: Normal Bowel Sounds, Soft, Other (GB scar, scar Bariatric surgical scar). No: Hepatomegaly, Splenomegaly Breast(s): Yes: WNL Musculoskeletal: Yes: WNL Extremities: Yes: WNL Edema: No Neurological: Yes: WNL Imaging - Results X-ray: Report Reviewed, Image Reviewed Assessment/Plan 46 year old with history of ulcer disease dating back to . Treated medically. In 2002 ,had gastric bypass. Has been receiving IV Venofer and B-12 therapy. Has Had GI bleeding in past. Has menorrhagiia and followed by [facility] where prior D & C did not decrease significantly the menorrhagia. Has monthly periods 7-10 days with clots. Has occasional menses, 2 x per month. Patient hospitlized in past with anemia and syncope requiring transfusion. Currently felt light headed and presented once again with blood per rectum and anemia. Did take motrin 2 tab Bid 2 days and 1 day before admission , and 2 tabs morning of admission. ( also on topical voltaren with likely systemic absorption and steroids with Fe+ + infusion) Case discussed with Dr. Montes. Will need EGD and perhaps colonoscopy. Blood bank support to maintain Hct -25%.
[2016-11-25] MEDS: SODIUM CHLORIDE 1,000 ML IV SCH ×2 (15:46→17:24)
[2016-11-25 21:11] LABS: MCHC 31.9 g/dl (32.0-36.0); MEAN CELL VOLUME 75.1 fl (80-96); MEAN PLT VOLUME 7.3 fl (7.5-11.1); PLATELET COUNT 218 K/MM3 (134-434); RDW 22.4 % (11.6-15.6); WHITE BLOOD COUNT 4.9 K/mm3 (4.0-10.0)
[2016-11-25] MEDS: MAG HYDROX/ALH/SMC/DPHA/LIDO 240 ML MOUTHWASH MM SCH (23:25)
[2016-11-26] MEDS: PANTOPRAZOLE SODIUM 80 MG in SODIUM CHLORIDE 100 ML IVPB SCH ×3 (05:00→22:06)
[2016-11-26] MEDS ORDERED: PT OWN MED DRAWER 7, Y5N ONE (05:14)
[2016-11-26] MEDS: MAG HYDROX/ALH/SMC/DPHA/LIDO 240 ML MOUTHWASH MM SCH ×4 (06:09→23:22)
[2016-11-26 08:10] LABS: BASOPHIL 0.7 % (0-2.0); EOSINOPHIL 4.6 % (0-4.5); MCHC 31.8 g/dl (32.0-36.0); MEAN CELL VOLUME 75.6 fl (80-96); MEAN PLT VOLUME 7.3 fl (7.5-11.1); NEUTROPHILS 53.1 % (42.8-82.8); PLATELET COUNT 202 K/MM3 (134-434); RDW 22.5 % (11.6-15.6); WHITE BLOOD COUNT 3.5 K/mm3 (4.0-10.0)
[2016-11-26 08:34] LABS: INR 1.13 (0.82-1.09); PROTHROMBIN TIME (PATIENT) 12.5 SEC (9.98-11.88)
[2016-11-26 08:36] LABS: ACTIVATED PTT 27.8 SECONDS (26.9-34.4)
[2016-11-26 08:37] LABS: ALBUMIN 2.4 g/dl (3.4-5.0); ANION GAP 8 (8-16); BILIRUBIN,TOTAL 0.5 mg/dL (0.2-1.0); CALCIUM 7.1 mg/dL (8.5-10.1); CHOLESTEROL 123 mg/dL (50-200); CO2 20 mmol/L (21-32); CREATININE 0.4 mg/dL (0.55-1.02); GLUCOSE,RANDOM 74 mg/dL (74-106); LDL CHOLESTEROL (ONLY SJRH) 74 mg/dL (5-100); SGOT/AST 12 U/L (15-37); SGPT/ALT 14 U/L (12-78); TOT PROT 4.2 g/dl (6.4-8.2)
[2016-11-26 08:38] LABS: ALK PHOS 61 U/L (45-117)
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
[2016-11-26] MEDS ORDERED: POTASSIUM CHLORIDE TABS 20 MEQ TABLET.ER (FP) PO ONE (09:45)
--- NOTE | 2016-11-26 09:46 | PN ---
Progress Note (short form) - Note Progress Note: Patient seen and examined Had maroon colored veronica last night, but no other bowel movement. Mild decrement in Hct and will receive one unit of packed cells. To have GI follow up today . Denies chest pains, SOB, dyspnea, nausea, emesis, abdominal pains. Last Vital Signs Temp Pulse Resp BP Pulse Ox 98.2 F 77 16 117/70 99 11/26/16 06:00 11/26/16 06:00 11/26/16 06:00 11/26/16 06:00 11/25/16 21:00 HEENT: EWA, EOM Intact Oropharynx: No thrush, No mucositis Cor: RSR, No murmurs, No gallops Lungs: Clear to P&A Abd: Soft, Normal bowel sounds, No organomegaly Ext:No significant edema Skin: No rashes, Integument intact CBC, BMP 11/26/16 06:00 11/26/16 06:00 Current Medications Generic Name Dose Route Start Last Admin Trade Name Yamilq PRN Reason Stop Dose Admin Sodium Chloride 1,000 mls @ 100 mls/hr 11/24/16 17:00 11/25/16 17:24 Normal Saline - IV Not Given ASDIR TANNER Pantoprazole Sodium 80 mg/ 100 mls @ 10 mls/hr 11/24/16 19:45 11/26/16 05:00 Sodium Chloride IVPB 10 mls/hr Q10H TANNER Administration 8 MG/HR Lidocaine/Aluminum/Magnesium/Simeth 5 ml 11/26/16 00:00 11/26/16 06:09 Magic Mouthwash *Sjr Formula* - MM Not Given Q6HPO TANNER Potassium Chloride 40 meq 11/26/16 09:45 K-Dur - PO 11/26/16 09:46 ONCE ONE Impression: GI bleeding - likely upper source with past ulcer disease, recent motrin, volatren topically and steroids with Fe.++ For GI assessment and EGD. For transfusion of one unit of packed cells. To maintain Hct of 25%. Menorrhagia-- for LINE TENDER FLAKEBOARD follow up in future. Palpitations- seen by cardiology - for outpatient follow up.
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
--- NOTE | 2016-11-26 11:14 | EKG ---
Test Reason : Blood Pressure : / mmHG Vent. Rate : 093 BPM Atrial Rate : 093 BPM P-R Int : 128 ms QRS Dur : 070 ms QT Int : 350 ms P-R-T Axes : 067 059 034 degrees QTc Int : 435 ms NORMAL SINUS RHYTHM NORMAL ECG WHEN COMPARED WITH ECG OF 27-OCT-2016 14:15, NO SIGNIFICANT CHANGE WAS FOUND Confirmed by ROBERT BREWER MD ([id number]) on 11/26/2016 11:13:46 AM Referred By: Confirmed By:ROBERT BREWER MD
--- NOTE | 2016-11-26 11:22 | EKG ---
Test Reason : Blood Pressure : / mmHG Vent. Rate : 082 BPM Atrial Rate : 082 BPM P-R Int : 138 ms QRS Dur : 072 ms QT Int : 392 ms P-R-T Axes : 055 068 038 degrees QTc Int : 457 ms NORMAL SINUS RHYTHM NORMAL ECG WHEN COMPARED WITH ECG OF 24-NOV-2016 14:59, NO SIGNIFICANT CHANGE WAS FOUND Confirmed by ROBERT BREWER MD ([id number]) on 11/26/2016 11:22:17 AM Referred By: Confirmed By:ROBERT BREWER MD
[2016-11-26] MEDS ORDERED: LIDOCAINE HCL/PF 2% SDV 5ML VIAL ONE (13:11)
[2016-11-26] MEDS ORDERED: PROPOFOL 40 ML ONE ×2 (13:11→13:28)
[2016-11-26] MEDS ORDERED: PROMETHAZINE HCL 25 MG/1 ML VIAL IVPUSH PRN (13:50)
[2016-11-26] MEDS ORDERED: ONDANSETRON 4 MG/2 ML VIAL IVPUSH PRN (13:50)
[2016-11-26] MEDS ORDERED: oxyCODONE HCL 5 MG TABLET PO PRN (13:50)
--- NOTE | 2016-11-26 14:13 | PN ---
GI Progress Note Subjective: GASTROENTEROLOGY SEE ENDO NOTE: NO SOURCE OF BLEEDING IN THE UPPER GI TRACT. ESOPHAGUS, STOMACH , ANASTOMOSIS,AND PART OD PROX JEJUNUN WAS NORMAL MUCOSA INTACT TRANSFUSE NEEDED , NPO P MN, BOWEL PREP, COLONOSCOPY TOMORROW JESSICA ORLANDO MD - Objective Vital Signs: Vital Signs Temperature 98.5 F 11/26/16 10:00 Pulse Rate 75 11/26/16 10:00 Respiratory Rate 20 11/26/16 10:00 Blood Pressure 137/80 11/26/16 10:00 O2 Sat by Pulse Oximetry (%) 98 11/26/16 09:00 Constitutional: Calm HENT: Yes: WNL Neck: Yes: WNL Cardiovascular: Yes: WNL Respiratory: Yes: WNL Gastrointestinal Inspection: Yes: WNL Extremities: Yes: WNL Labs: CBC, BMP 11/26/16 06:00 11/26/16 06:00 INR, PTT INR 1.13 (0.82-1.09) 11/26/16 06:00 Problem List - Problems (1) Gastrointestinal hemorrhage with melena Assessment/Plan: SEE ABOVE Code(s): K92.1 - MELENA (2) Acute blood loss anemia Code(s): D62 - ACUTE POSTHEMORRHAGIC ANEMIA (3) Pre-syncope Code(s): R55 - SYNCOPE AND COLLAPSE (4) Menorrhagia Code(s): N92.0 - EXCESSIVE AND FREQUENT MENSTRUATION WITH REGULAR CYCLE Qualifiers: Menorrahagia type: with irregular cycle Qualified Code(s): N92.1 - Excessive and frequent menstruation with irregular cycle (5) Chronic orthostatic hypotension Code(s): I95.1 - ORTHOSTATIC HYPOTENSION (6) Malabsorption Code(s): K90.9 - INTESTINAL MALABSORPTION, UNSPECIFIED
[2016-11-26] MEDS ORDERED: POLYETHYLENE GLYCOL 3350 255 GM BTL PO ONE (14:14)
[2016-11-26] MEDS: SODIUM CHLORIDE 1,000 ML IV SCH (17:05)
[2016-11-26 19:45] LABS: BASOPHIL 0.8 % (0-2.0); EOSINOPHIL 2.7 % (0-4.5); MCH 24.7 pg (25.7-33.7); MCHC 32.8 g/dl (32.0-36.0); MEAN CELL VOLUME 75.3 fl (80-96); MEAN PLT VOLUME 7.4 fl (7.5-11.1); NEUTROPHILS 59.3 % (42.8-82.8); PLATELET COUNT 239 K/MM3 (134-434); RDW 21.9 % (11.6-15.6); WHITE BLOOD COUNT 5.1 K/mm3 (4.0-10.0)
[2016-11-26] MEDS ORDERED: BISACODYL 5 MG TABLET.DR (FP) PO ONE (20:00)
[2016-11-26 21:13] LABS: ANISOCYTOSIS 2+; OVALOCYTES 2+; PLATELET ESTIMATE ADEQUATE (NORMAL); POIKILOCYTOSIS 2+; POLYCHROMASIA 1+; TEAR DROP CELLS 1+
[2016-11-27] MEDS: MAG HYDROX/ALH/SMC/DPHA/LIDO 240 ML MOUTHWASH MM SCH ×3 (05:26→18:01)
[2016-11-27] MEDS: PANTOPRAZOLE SODIUM 80 MG in SODIUM CHLORIDE 100 ML IVPB SCH (05:44)
[2016-11-27 07:27] LABS: BASOPHIL 0.9 % (0-2.0); EOSINOPHIL 7.9 % (0-4.5); MCH 24.8 pg (25.7-33.7); MCHC 32.7 g/dl (32.0-36.0); MEAN CELL VOLUME 75.8 fl (80-96); MEAN PLT VOLUME 7.3 fl (7.5-11.1); NEUTROPHILS 52.6 % (42.8-82.8); PLATELET COUNT 204 K/MM3 (134-434); RDW 21.9 % (11.6-15.6); WHITE BLOOD COUNT 4.1 K/mm3 (4.0-10.0)
[2016-11-27 07:59] LABS: ALBUMIN 2.5 g/dl (3.4-5.0); ANION GAP 7 (8-16); CALCIUM 7.2 mg/dL (8.5-10.1); CO2 22 mmol/L (21-32); CREATININE 0.4 mg/dL (0.55-1.02); GLUCOSE,RANDOM 84 mg/dL (74-106); SGOT/AST 15 U/L (15-37); SGPT/ALT 17 U/L (12-78)
[2016-11-27 08:00] LABS: ALK PHOS 66 U/L (45-117); BILIRUBIN,TOTAL 0.4 mg/dL (0.2-1.0); TOT PROT 4.5 g/dl (6.4-8.2)
[2016-11-27] MEDS ORDERED: ATROPINE SULFATE 1 MG/10 ML DISP.SYRIN ONE (09:21)
[2016-11-27] MEDS ORDERED: PROPOFOL 40 ML ONE (09:21)
[2016-11-27] MEDS ORDERED: MIDAZOLAM HCL 5 MG/1 ML Single Dose Vial ONE (09:28)
--- NOTE | 2016-11-27 10:19 | PN ---
Progress Note (short form) - Note Progress Note: GI Procedure Note: Please see colonoscopy report. No evidence of any GI bleeding or potential sources of bleeding. Would refer to Dr. Landaverde for capsule endoscopy as an outpatent.
[2016-11-27 10:49] LABS: MAGNESIUM 1.6 mg/dL (1.8-2.4)
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
[2016-11-27] MEDS ORDERED: MAGNESIUM SULF 50% (8.12 MEQ/2 ML-1 GM VIAL) IVPB ONE (11:30)
[2016-11-27] MEDS ORDERED: POTASSIUM CHLORIDE TABS 20 MEQ TABLET.ER (FP) PO ONE (12:00)
[2016-11-27 17:15] LABS: BASOPHIL 1.7 % (0-2.0); EOSINOPHIL 5.3 % (0-4.5); MCH 24.6 pg (25.7-33.7); MCHC 32.5 g/dl (32.0-36.0); MEAN CELL VOLUME 75.7 fl (80-96); MEAN PLT VOLUME 7.3 fl (7.5-11.1); NEUTROPHILS 66.7 % (42.8-82.8); PLATELET COUNT 274 K/MM3 (134-434); RDW 22.1 % (11.6-15.6); WHITE BLOOD COUNT 5.7 K/mm3 (4.0-10.0)
[2016-11-27 17:40] LABS: CALCIUM 7.3 mg/dL (8.5-10.1); CREATININE 0.5 mg/dL (0.55-1.02); MAGNESIUM 1.9 mg/dL (1.8-2.4)
[2016-11-27 17:44] LABS: ANISOCYTOSIS 3+; HYPOCHROMIA 1+; MICROCYTOSIS 1+; PLATELET ESTIMATE ADEQUATE (NORMAL); POLYCHROMASIA FEW
--- NOTE | 2016-11-27 19:55 | PN ---
Progress Note (short form) - Note Progress Note: PAtient seen and examined Denies any complaints Last Vital Signs Temp Pulse Resp BP Pulse Ox 98.5 F 73 20 131/79 98 11/27/16 18:00 11/27/16 18:00 11/27/16 18:00 11/27/16 18:00 11/27/16 10:51 Cor: RSR, No murmurs, No gallops Lungs: Clear to P&A Abd: Soft, Normal bowel sounds, No organomegaly Ext:No significant edema Skin: No rashes, Integument intact Abnormal Lab Results 11/24/16 11/26/16 11/27/16 11:49 18:45 06:20 Hgb 9.6 L D 9.0 L Hct 29.2 L D 27.4 L MCV 75.3 L 75.8 L RDW 21.9 H 21.9 H MPV 7.4 L 7.3 L Eosinophils % 7.9 H D Potassium Chloride Carbon Dioxide Anion Gap BUN Creatinine Calcium Magnesium Total Protein Albumin Crossmatch See Detail 11/27/16 11/27/16 11/27/16 06:20 16:30 16:30 Hgb 9.1 L Hct 28.2 L MCV 75.7 L RDW 22.1 H MPV 7.3 L Eosinophils % 5.3 H Potassium 3.4 L Chloride 113 H 114 H Carbon Dioxide 19 L Anion Gap 7 L BUN 4 L D 3 L D Creatinine 0.4 L 0.5 L D Calcium 7.2 L 7.3 L Magnesium 1.6 L D Total Protein 4.5 L Albumin 2.5 L Crossmatch Current Medications Lidocaine/Aluminum/Magnesium/Simeth (Magic Mouthwash *Sjr Formula* -) 5 ml MM Q6HPO [facility] Last Admin: 11/27/16 12:11 Dose: Not Given A/P 46 y/o female with iron deficiency anemia, s/p 3units PRBCs On IV iron--premedicate with benadryl/decadron EGD/colonoscopy --unrevealing. 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 Braswell Needs to f/u with derm
[2016-11-27] MEDS ORDERED: ACETAMINOPHEN 325 MG TABLET (FP) PO PRN (22:22)
[2016-11-28] MEDS: MAG HYDROX/ALH/SMC/DPHA/LIDO 240 ML MOUTHWASH MM SCH ×3 (00:12→11:25)
[2016-11-28] MEDS ORDERED: DEXAMETHASONE SOD PHOSPHATE 4 MG/1 ML VIAL IVPB ONE ×3 (08:30→11:00)
[2016-11-28 08:45] LABS: ALBUMIN 2.7 g/dl (3.4-5.0); ANION GAP 9 (8-16); BILIRUBIN,TOTAL 0.3 mg/dL (0.2-1.0); CALCIUM 7.4 mg/dL (8.5-10.1); CO2 21 mmol/L (21-32); CREATININE 0.4 mg/dL (0.55-1.02); GLUCOSE,RANDOM 77 mg/dL (74-106); SGOT/AST 14 U/L (15-37); SGPT/ALT 15 U/L (12-78); TOT PROT 4.5 g/dl (6.4-8.2)
[2016-11-28] MEDS ORDERED: IRON SUCROSE INJECTION 100 MG in SODIUM CHLORIDE 95 ML IVPB ONE (09:00)
[2016-11-28 10:26] LABS: C-REACTIVE PROTEIN < 0.3 MG/DL (0.00-0.3)
[2016-11-28] MEDS ORDERED: PT OWN MED DRAWER 7, Y5N ONE (10:52)
[2016-11-28 11:08] LABS: BASOPHIL 0.6 % (0-2.0); EOSINOPHIL 4.8 % (0-4.5); MCH 24.4 pg (25.7-33.7); MCHC 31.7 g/dl (32.0-36.0); MEAN CELL VOLUME 76.8 fl (80-96); MEAN PLT VOLUME 7.2 fl (7.5-11.1); NEUTROPHILS 64.9 % (42.8-82.8); PLATELET COUNT 254 K/MM3 (134-434); RDW 22.1 % (11.6-15.6); WHITE BLOOD COUNT 4.7 K/mm3 (4.0-10.0)
--- NOTE | 2016-11-28 11:56 | CONSULT ---
Consult Consult Specialty:: Neurology Reason for Consultation:: Headache - History of Present Illness History of Present Illness: 46 year old woman, history of migraine headaches, cervicalgia, iron deficiency anemnia, menorrhagia, hyoptension, gastric bypass, depression, syncope, presented with presyncopal episode. Patient receives weekly iron infusions. Neurology consulted for history of headache. Patient reports at least a five year history of headache, daily, described as left sided, throbbing, associated with nausea, photo/phonophobia. Has seen a neurologist in the past at [facility] for headache, MRI brain and C spine (for cervicalgia) previously completed. States her headache is improving. Denies new onset of numbness, or focal weakness. Has avoided NSAIDs in past due to concern of bleeding and tylenol due to history of a "liver problem." CT head completed shows no acute findings - Past Medical History DOORKEEPER: Yes: Other (pre-syncope and syncope with anemia) Cardio/Vascular: Yes: Aortic Insufficiency, Mitral Insufficiency Gastrointestinal: Yes: Other (BARIATRIC SURGERY, bleeding GI ulcers) ...LMP: 11/17/16 ...: No Psych: Yes: Anxiety Musculoskeletal: Yes: Other (C-spine surgery) Endocrine: Yes: Other (vitamin D deficiency) - Past Surgical History Past Surgical History: Yes: Bariatric Surgery, Colonoscopy, (x4), Tubal Ligation (2003), Upper Endoscopy - Alcohol/Substance Use Hx Alcohol Use: No - Smoking History Smoking history: Never smoked Have you smoked in the past 12 months: No - Social History Usual Living Arrangement: With Significant Other ADL: Independent Home Medications - Allergies Allergies/Adverse Reactions: Allergies Allergy/AdvReac Type Severity Reaction Status Date / Time iron dextran complex Allergy Intermediate Verified 11/25/16 15:10 iron sucrose complex Allergy Intermediate Hives Verified 11/25/16 15:10 [From Venofer] No Known Drug Allergies Allergy Intermediate Hives Verified 11/25/16 15:10 tape Allergy Mild Rash Uncoded 11/24/16 11:17 - Home Medications Home Medications: Ambulatory Orders Buspirone HCl [Buspar -] 10 mg PO BID 12/18/15 Calcium Carbonate/Vitamin D3 [Calcium 600 + Vit D 400 Softgl] 1 each PO DAILY Cholecalciferol (Vitamin D3) [Vitamin D3] 50,000 unit PO WEEKLY 12/18/15 Diclofenac Sodium [Voltaren] 100 gm TP BID 12/18/15 Ferrous Sulfate 325 mg PO DAILY 12/18/15 Gabapentin 300 mg PO TID 12/18/15 Hydroxyzine Pamoate [Vistaril -] 50 mg PO DAILY 12/18/15 Loratadine [Claritin -] 10 mg PO DAILY 12/18/15 Multivitamins [Multivit ([facility] Formulary)] 1 tab PO DAILY 12/18/15 Ranitidine [Zantac -] 150 mg PO BID 12/18/15 Simethicone [Phazyme] 180 mg PO DAILY 12/18/15 Tizanidine HCl 2 mg PO TID 12/18/15 Acetaminophen [Tylenol .Regular Strength -] 650 mg PO Q6H PRN #0 tablet Mag Hydrox/Alh/Smc/Dpha/Lido [Magic Mouthwash *Sjr Formula* -] 5 ml MM Q6HPO #1 bottle 04/21/16 Lidocaine 2% Viscous Oral [Xylocaine 2% Viscous Oral -] 20 ml PO TID 11/24/16 Ondansetron [Zofran *Odt*] 8 mg SL DAILY 11/24/16 Sertraline HCl [Zoloft] 50 mg PO DAILY 11/24/16 Family Disease History - Family Disease History Family Disease History: CA: Father (prostate), Mother (breast & thyroid CA w/ mets to lymph node), Sister (vaginal/cervical CA), Other: Brother (chronic asthma) Review of Systems - Review of Systems Neurological: reports: Headache Physical Exam Vital Signs: Vital Signs Temperature 98.3 F 11/28/16 06:00 Pulse Rate 68 11/28/16 06:00 Respiratory Rate 18 11/28/16 06:00 Blood Pressure 114/64 11/28/16 06:00 O2 Sat by Pulse Oximetry (%) 98 11/27/16 22:00 Constitutional: Yes: No Distress, Calm Eyes: Yes: Conjunctiva Clear, EOM Intact HENT: Yes: Atraumatic, Normocephalic Cardiovascular: Yes: S1, S2 Respiratory: Yes: Regular Neurological: Yes: Alert, Oriented, Cran Nerves II-XII Intact ...Motor Strength: WNL Labs: CBC, BMP 11/28/16 10:55 11/28/16 06:50 Assessment/Plan 46 year old woman, history of migraine headaches, cervicalgia, iron deficiency anemnia, menorrhagia, hyoptension, gastric bypass, depression, syncope, presented with presyncopal episode. Patient receives weekly iron infusions. Neurology consulted for history of headache. Patient reports at least a five year history of headache, daily, described as left sided, throbbing, associated with nausea, photo/phonophobia. Has seen a neurologist in the past at [facility] for headache, MRI brain and C spine (for cervicalgia) previously completed. States her headache is improving. Denies new onset of numbness, or focal weakness. Has avoided NSAIDs in past due to concern of bleeding and tylenol due to history of a "liver problem." Migraine without aura, could be exacerbated by cervicalgia CT head shows no acute findings Continue supportive care No further neurologic testing as inpatient necessary Patient should follow up with neurology in 2-4 as outpatient for further headache management, instructed patient to bring MRIs to outpatient visit
[2016-11-28 12:42] VITALS: BP 129/84
[2016-11-28] MEDS ORDERED: HYDROCORTISONE 1% TOPICAL CREAM 30 GM TUBE TP PRN (13:23)
[2016-11-28 13:30] LABS: ERYTHROCYTE SEDIMENTATION RATE 5 mm/hr (0-20)
[2016-11-28 14:10] VITALS: PULSE 87; TEMP 98
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
--- NOTE | 2016-11-28 17:21 | EKG ---
Test Reason : Blood Pressure : / mmHG Vent. Rate : 068 BPM Atrial Rate : 068 BPM P-R Int : 142 ms QRS Dur : 074 ms QT Int : 438 ms P-R-T Axes : 043 062 039 degrees QTc Int : 465 ms NORMAL SINUS RHYTHM NORMAL ECG WHEN COMPARED WITH ECG OF 24-NOV-2016 11:44, NO SIGNIFICANT CHANGE WAS FOUND Confirmed by NICHOLE BEACH MD ([id number]) on 11/28/2016 5:21:15 PM Referred By: Confirmed By:NICHOLE BEACH MD
--- NOTE | 2016-11-28 17:51 | PN ---
Progress Note (short form) - Note Progress Note: Patient seen Complains of headache and neck pains GI work up non revealing for source of blood loss. Will need capsule endoscopy, CREDIT RISK MANAGEMENT DIRECTOR follow up, and ongoing Venofer therapy.
[2016-11-28 18:55] LABS: ALK PHOS 70 U/L (45-117)
== END 2016-11-28 18:04 | disposition home health service (06) | DRG 253 ==
LOC: JER 10:59 → OBSVTOIN 15:34 → JERBED 15:34 → UNDOADMOB 15:34 → INTOOBSV 15:34 → JERBED 17:00 → J4W 17:00 → JERBED 11-25 09:52 → OBSVTOIN 11-25 09:52 → J4W 11-25 09:52 → J6S 11-26 19:05
PROVIDERS: ADMIT Internal Medicine; ATTEND Nurse Practitioner Acute Care
PROC: 30233N1 Transfusion of Nonautologous Red Blood Cells into Peripheral Vein, Percutaneous Approach (ICD-10-PCS; 2016-11-24)
PROC: 0DJ08ZZ Inspection of Upper Intestinal Tract, Via Natural or Artificial Opening Endoscopic (ICD-10-PCS; principal; 2016-11-26 13:26)
PROC: 0DJD8ZZ Inspection of Lower Intestinal Tract, Via Natural or Artificial Opening Endoscopic (ICD-10-PCS; 2016-11-27)
DX: K92.2 Gastrointestinal hemorrhage, unspecified (principal); E87.5 Hyperkalemia; K90.9 Intestinal malabsorption, unspecified; E83.42 Hypomagnesemia; D62 Acute posthemorrhagic anemia; F32.9 Major depressive disorder, single episode, unspecified; K21.9 Gastro-esophageal reflux disease without esophagitis; Z98.84 Bariatric surgery status; D25.9 Leiomyoma of uterus, unspecified; I95.1 Orthostatic hypotension; R00.2 Palpitations; N92.0 Excessive and frequent menstruation with regular cycle; G43.909 Migraine, unspecified, not intractable, without status migrainosus; M54.2 Cervicalgia
CPT/HCPCS: 36415; 36430; 70470-TC; 71010-TC; 74177-TC; 76775-TC; 80048; 80053; 80061; 81003; 82272; 82533; 82550; 83721; 83735; 84132; 84439; 84443; 84484; 84703; 85025; 85027; 85610; 85651; 85730; 86140; 86850; 86900; 86901; 86922; 87086; 93005; 93010; 93306-TC; 93880-TC; 94760; 97116-GP; 97161-GP; 99285-25; J1756; P9038; P9058; Q9967

== ENCOUNTER 2017-04-20 18:59 | Emergency (ER) | payer OTHER ==
[2017-04-20 19:16] VITALS: BP 116/80; PULSE 101; TEMP 98.4; BMI 27.1
[2017-04-20] MEDS ORDERED: DEXAMETHASONE SOD PHOSPHATE 10 MG/1 ML VIAL IM ONE (19:35)
--- NOTE | 2017-04-20 19:35 | PDOC ---
History of Present Illness - General History Source: Patient Exam Limitations: No Limitations - History of Present Illness Initial Comments: CHIEF COMPLAINT: 47 y/o afebrile female with PMH severe anemia (she receives weekly iron infusions with Dr. Lee) c/o overall body itching since last night. HISTORY OF PRESENT ILLNESS: The patient states she does get itchy all over when her blood count gets low, but admits this feels different. However, she does admit she's missed the last 3 weeks of infusions because she was not in the area. She denies fatigue, weakness, visible rash, exposure to new soaps/ dyes/detergents/food, difficulty breathing, SOB, CP, palpitations, swelling to face/lips/tongue. She denies itching in between fingers or in flexor surfaces of extremities. She is due for her monthly iron infusion next week. PCP is Dr. Graves Vital signs on arrival are notable for pulse of 101. REVIEW OF SYSTEMS: GENERAL/CONSTITUTIONAL: No fever/chills. No weakness. No weight change. HEAD, EYES, EARS, NOSE AND THROAT: No change in vision. No ear pain or discharge. No sore throat. CARDIOVASCULAR: No chest pain or shortness of breath. RESPIRATORY: No cough, wheezing, or hemoptysis. MUSCULOSKELETAL: No joint or muscle swelling or pain. No neck or back pain. SKIN: +overall body itching NEUROLOGIC: No headache, vertigo, loss of consciousness, or loss of sensation. PHYSICAL EXAM: GENERAL: The patient is awake, alert, and fully oriented, in no acute distress. She is pale appearing. HEAD: Normal with no signs of trauma EYES: Pupils equal, round and reactive to light, extraocular movements intact, sclera anicteric, conjunctiva pale. EXTREMITIES: Normal range of motion, no edema. NEUROLOGICAL: Normal speech, normal gait. SKIN: No visible rash. <Sherlyn Fisher - Last Filed: 04/20/17 19:50> <Emerita Tirado - Last Filed: 04/20/17 22:25> - General Chief Complaint: Itching Stated Complaint: RASH Time Seen by Provider: 04/20/17 19:26 Past History - Past Medical History Anemia: Yes (BLOOD TRANSFSIONS-LAST MONTH AGO) Asthma: No Cancer: No Cardiac Disorders: No CVA: No COPD: No CHF: No Dementia: No Diabetes: No Dialysis: No GI Disorders: Yes (ULCER) Disorders: No HTN: No Hypercholesterolemia: No Liver Disease: No Suicide Attempt (Hx): No Seizures: No Thyroid Disease: No - Surgical History Abdominal Surgery: Yes (GASTRIC BYPASS, ULCER) Appendectomy: No Cardiac Surgery: No Cholecystectomy: Yes Lung Surgery: No Neurologic Surgery: No Orthopedic Surgery: No - Psycho/Social/Smoking Cessation Hx Anxiety: No Suicidal Ideation: No Smoking Status: No Smoking History: Never smoked Have you smoked in the past 12 months: No Hx Alcohol Use: No Drug/Substance Use Hx: No Substance Use Type: None Hx Substance Use Treatment: No <Sherlyn Fisher - Last Filed: 04/20/17 19:50> <Emerita Tirado - Last Filed: 04/20/17 22:25> - Past Medical History Allergies/Adverse Reactions: Allergies Allergy/AdvReac Type Severity Reaction Status Date / Time iron dextran complex Allergy Intermediate Verified 04/20/17 19:13 iron sucrose complex Allergy Intermediate Hives Verified 04/20/17 19:13 [From Venofer] tape Allergy Intermediate Rash Uncoded 04/20/17 19:13 Home Medications: Ambulatory Orders Buspirone HCl [Buspar -] 10 mg PO BID 12/18/15 Calcium Carbonate/Vitamin D3 [Calcium 600 + Vit D 400 Softgl] 1 each PO DAILY Cholecalciferol (Vitamin D3) [Vitamin D3] 50,000 unit PO WEEKLY 12/18/15 Diclofenac Sodium [Voltaren] 100 gm TP BID 12/18/15 Gabapentin 300 mg PO TID 12/18/15 Hydroxyzine Pamoate [Vistaril -] 50 mg PO DAILY 12/18/15 Loratadine [Claritin -] 10 mg PO DAILY 12/18/15 Multivitamins [Multivit ([facility] Formulary)] 1 tab PO DAILY 12/18/15 Ranitidine [Zantac -] 150 mg PO BID 12/18/15 Simethicone [Phazyme] 180 mg PO DAILY 12/18/15 Acetaminophen [Tylenol .Regular Strength -] 650 mg PO Q6H PRN #0 tablet Mag Hydrox/Alh/Smc/Dpha/Lido [Magic Mouthwash *Sjr Formula* -] 5 ml MM Q6HPO #1 bottle 04/21/16 Lidocaine 2% Viscous Oral [Xylocaine 2% Viscous Oral -] 20 ml PO TID 11/24/16 Ondansetron [Zofran *Odt*] 8 mg SL DAILY 11/24/16 Sertraline HCl [Zoloft] 50 mg PO DAILY 11/24/16 Omeprazole 20 mg PO DAILY #30 capsule. 11/28/16 Clindamycin [Cleocin -] 150 mg PO Q6H 04/20/17 Valacyclovir HCl [Valtrex -] 1,000 mg PO TID 04/20/17 *Physical Exam - Vital Signs Last Vital Signs Temp Pulse Resp BP Pulse Ox 98.4 F 101 H 19 116/80 100 04/20/17 19:13 04/20/17 19:13 04/20/17 19:13 04/20/17 19:13 04/20/17 19:13 <Sherlyn Fisher - Last Filed: 04/20/17 19:50> - Vital Signs Last Vital Signs Temp Pulse Resp BP Pulse Ox 98.4 F 101 H 19 116/80 100 04/20/17 19:13 04/20/17 19:13 04/20/17 19:13 04/20/17 19:13 04/20/17 19:13 <Emerita Tirado - Last Filed: 04/20/17 22:25> ED Treatment Course - LABORATORY CBC & Chemistry Diagram: 04/20/17 20:00 - ADDITIONAL ORDERS Additional order review: 04/20/17 20:00 RBC 4.15 MCV 71.3 L MCHC 30.8 L RDW 19.3 H D MPV 7.3 L Neutrophils % 59.9 Lymphocytes % 30.6 D Monocytes % 5.4 Eosinophils % 2.6 Basophils % 1.5 - Medications Given in the ED: ED Medications Discontinued Medications Generic Name Dose Route Start Last Admin Trade Name Freq PRN Reason Stop Dose Admin Dexamethasone Sodium Phosphate 10 mg 04/20/17 19:35 04/20/17 19:50 Decadron Injection - IM 04/20/17 19:36 10 mg ONCE ONE Administration <Emerita Tirado - Last Filed: 04/20/17 22:25> Progress Note - Progress Note Progress Note: pt has been given the results of the labs and pt understands the plan for discharge. pt will call her PMD on sunday for follow up . vitals on discharge BP 126/60 HR 76 apically temp 98.0 rr 14 pulse ox 98% pt has no dizzyness no chest pain on dc <Emerita Tirado - Last Filed: 04/20/17 22:25> Medical Decision Making - Medical Decision Making A/P: 47 y/o female with overall body itching since yesterday without visible rash. Pt states she does get itchy all over when her blood counts get low. Plan is as follows: 1. IM decadron 2. CBC I am signing this patient out to my colleague: TORSTEN Tirado In brief, this patient is being seen in the ED for a chief complaint of: itching I have completed the initial assessment interview note and have ordered: IM decadron and CBC I have reviewed the following results: none Pending results are: CBC Please call the PCP: Dr. Graves Plan for disposition is as follows: If CBC normal, patient can be discharged to home. If H&H requires transfusion please transfer to main ER. <Sherlyn Fisher - Last Filed: 04/20/17 19:50> *DC/Admit/Observation/Transfer <Sherlyn Fisher - Last Filed: 04/20/17 19:50> <Emerita Tirado - Last Filed: 04/20/17 22:25> Diagnosis at time of Disposition: Itching Anemia Qualifiers: Anemia type: iron deficiency Iron deficiency anemia type: other iron deficiency Qualified Code(s): D50.8 - Other iron deficiency anemias - Discharge Dispostion Disposition: HOME Condition at time of disposition: Good - Referrals Referrals: Charline Graves [Primary Care Provider] - - Patient Instructions Additional Instructions: please call your doctor on Sunday to set up for transfusion eat diet high in iron return to the ER if any worsening symptoms
[2017-04-20] MEDS ORDERED: DEXAMETHASONE SOD PHOSPHATE 10 MG/1 ML VIAL ONE (19:36)
[2017-04-20 20:07] LABS: BASOPHIL 1.5 % (0-2.0); EOSINOPHIL 2.6 % (0-4.5); MCH 21.9 pg (25.7-33.7); MCHC 30.8 g/dl (32.0-36.0); MEAN CELL VOLUME 71.3 fl (80-96); MEAN PLT VOLUME 7.3 fl (7.5-11.1); NEUTROPHILS 59.9 % (42.8-82.8); PLATELET COUNT 620 K/MM3 (134-434); RDW 19.3 % (11.6-15.6); WHITE BLOOD COUNT 6.4 K/mm3 (4.0-10.0)
[2017-04-20 21:37] LABS: ANISOCYTOSIS 2+; HYPOCHROMIA 2+; PLATELET ESTIMATE INCREASED (NORMAL)
== END 2017-04-20 21:03 | disposition home or self-care (01) ==
LOC: JERFT 18:59
PROC: 3E033GC Introduction of Other Therapeutic Substance into Peripheral Vein, Percutaneous Approach (ICD-10-PCS; principal; 2017-04-20)
DX: L29.9 Pruritus, unspecified (principal); D50.9 Iron deficiency anemia, unspecified
CPT/HCPCS: 36415; 85025; 99281-25

== ENCOUNTER 2017-09-19 13:01 | Emergency (ER) | payer OTHER ==
[2017-09-19 13:14] VITALS: BP 135/86; PULSE 98; TEMP 99; BMI 23.3
[2017-09-19] MEDS ORDERED: IBUPROFEN 400 MG TABLET (FP) PO ONE ×2 (14:19→14:22)
--- NOTE | 2017-09-19 14:24 | PDOC ---
History of Present Illness - General Chief Complaint: Oral Ulcers Stated Complaint: ABSCESS ON FACE Time Seen by Provider: 09/19/17 13:21 History Source: Patient - History of Present Illness Severity: moderate Past History - Past Medical History Allergies/Adverse Reactions: Allergies Allergy/AdvReac Type Severity Reaction Status Date / Time iron dextran complex Allergy Intermediate Verified 09/19/17 13:14 iron sucrose complex Allergy Intermediate Hives Verified 09/19/17 13:14 [From Venofer] tape Allergy Intermediate Rash Uncoded 09/19/17 13:14 Home Medications: Ambulatory Orders Buspirone HCl [Buspar -] 10 mg PO BID 12/18/15 Calcium Carbonate/Vitamin D3 [Calcium 600 + Vit D 400 Softgl] 1 each PO DAILY Cholecalciferol (Vitamin D3) [Vitamin D3] 50,000 unit PO WEEKLY 12/18/15 Diclofenac Sodium [Voltaren] 100 gm TP BID 12/18/15 Gabapentin 300 mg PO TID 12/18/15 Hydroxyzine Pamoate [Vistaril -] 50 mg PO DAILY 12/18/15 Loratadine [Claritin -] 10 mg PO DAILY 12/18/15 Multivitamins [Multivit ([facility] Formulary)] 1 tab PO DAILY 12/18/15 Ranitidine [Zantac -] 150 mg PO BID 12/18/15 Simethicone [Phazyme] 180 mg PO DAILY 12/18/15 Acetaminophen [Tylenol .Regular Strength -] 650 mg PO Q6H PRN #0 tablet Mag Hydrox/Alh/Smc/Dpha/Lido [Magic Mouthwash *Sjr Formula* -] 5 ml MM Q6HPO #1 bottle 04/21/16 Lidocaine 2% Viscous Oral [Xylocaine 2% Viscous Oral -] 20 ml PO TID 11/24/16 Ondansetron [Zofran *Odt*] 8 mg SL DAILY 11/24/16 Sertraline HCl [Zoloft] 50 mg PO DAILY 11/24/16 Omeprazole 20 mg PO DAILY #30 capsule. 11/28/16 Clindamycin [Cleocin -] 150 mg PO Q6H 04/20/17 Valacyclovir HCl [Valtrex -] 1,000 mg PO TID 04/20/17 Clindamycin [Cleocin -] 300 mg PO Q6HPO #28 capsule 09/19/17 Ibuprofen [Motrin -] 600 mg PO QID #28 tablet 09/19/17 Anemia: Yes (BLOOD TRANSFSIONS) Asthma: No Cancer: No Cardiac Disorders: No CVA: No COPD: No CHF: No Dementia: No Diabetes: No Dialysis: No GI Disorders: Yes (ULCER) Disorders: No HTN: No Hypercholesterolemia: No Liver Disease: No Seizures: No Thyroid Disease: No - Surgical History Abdominal Surgery: Yes (GASTRIC BYPASS, ULCER) Appendectomy: No Cardiac Surgery: No Cholecystectomy: Yes Gastric Stapling: No (BYPASS) Lung Surgery: No Neurologic Surgery: Yes (C SPINE.) Orthopedic Surgery: No - Suicide/Smoking/Psychosocial Hx Smoking Status: No Smoking History: Never smoked Have you smoked in the past 12 months: No Hx Alcohol Use: No Drug/Substance Use Hx: No Substance Use Type: None Hx Substance Use Treatment: No Review of Systems - Review of Systems Constitutional: No: Chills, Fever *Physical Exam - Vital Signs Last Vital Signs Temp Pulse Resp BP Pulse Ox 99.0 F 98 H 20 135/86 100 09/19/17 13:10 09/19/17 13:10 09/19/17 13:10 09/19/17 13:10 09/19/17 13:10 - Physical Exam General Appearance: Yes: Appropriately Dressed. No: Apparent Distress HEENT: positive: Normal Voice, Other (moderate swelling to L nasolabial fold w/ area of induration w/ possible fluctuance located to gumline of L upper 2nd premolar which is s/p extracted in past per pt, poor dentition w/ multiple extractions) Neck: positive: Supple Respiratory/Chest: negative: Respiratory Distress Integumentary: positive: Dry, Warm Neurologic: positive: Fully Oriented, Alert, Normal Mood/Affect Medical Decision Making - Medical Decision Making 09/19/17 14:19 47-year-old female, history of anemia, recurrent dental abscesses, here with left facial pain and swelling x several days consistent with her usual dental abscess. Denies fever or chills. No recent dental procedures. States she attempted to see her dentist today but was told M.D. is on vacation. Patient well-appearing and stable with poor dentition and multiple extractions with possible dental abscess located to left upper second premolar with accompanying moderate swelling to left nasolabial fold. Patient told she will need to see a dentist today for possible I&D. 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 Will dc with antibiotics and pain control w/ UC dental referral *DC/Admit/Observation/Transfer Diagnosis at time of Disposition: Dental abscess - Discharge Dispostion Disposition: HOME Condition at time of disposition: Good - Prescriptions Prescriptions: Clindamycin [Cleocin -] 300 mg PO Q6HPO #28 capsule Ibuprofen [Motrin -] 600 mg PO QID #28 tablet - Referrals Referrals: Charline Graves [Primary Care Provider] - - Patient Instructions Printed Discharge Instructions: Tooth Abscess Additional Instructions: Take medications as directed. You are referred to the dental clinic for possible I&D today in [place]: [facility] Address: [address] [place] [address] - Post Discharge Activity
== END 2017-09-19 14:34 | disposition home or self-care (01) ==
LOC: JERFT 13:01
DX: K04.7 Periapical abscess without sinus (principal); Z98.84 Bariatric surgery status
CPT/HCPCS: 99281-25

== ENCOUNTER 2018-02-02 17:30 | Observation (INO) | payer OTHER ==
[2018-02-02] MEDS ORDERED: SODIUM CHLORIDE 1,000 ML IV STA (17:51)
--- NOTE | 2018-02-02 18:00 | PDOC ---
History of Present Illness - General Chief Complaint: Blood Transfusion Stated Complaint: PCP SENT Time Seen by Provider: 02/02/18 17:50 History Source: Patient Exam Limitations: No Limitations - History of Present Illness Travel History: No Initial Comments: 02/02/18 17:55 47-year-old female with history of anemia presents to the ED with complaints of generalized fatigue, paleness, and complaining of right upper quadrant pain intimately for the past month without nausea, vomiting, or diarrhea. Patient denies fever or chills but states has been constipated the past week despite following a strict diet. Patient states history of cholecystectomy and denies liver disease or kidney disease. Patient states her menses is heavy and was receiving iron infusion up until about 2 months ago. Patient states was told by her PCP to come in 2 weeks ago for a blood transfusion but failed to because of time constraints and trying to get better "without help." Timing/Duration: reports: getting worse Quality: reports: moderate Abdominal Pain Onset Location: reports: RUQ Pain Radiation: reports: back (right back) Activities at Onset: reports: none Aggravating Factors: improves with: Movement Alleviating Factors: improves with: None Past History - Travel Traveled outside of the country in the last 30 days: No - Past Medical History Allergies/Adverse Reactions: Allergies Allergy/AdvReac Type Severity Reaction Status Date / Time iron dextran complex Allergy Intermediate Verified 02/02/18 17:33 iron sucrose complex Allergy Intermediate Hives Verified 02/02/18 17:33 [From [facility]] tape Allergy Intermediate Rash Uncoded 02/02/18 17:33 Home Medications: Ambulatory Orders Buspirone HCl [Buspar -] 10 mg PO BID 12/18/15 Calcium Carbonate/Vitamin D3 [Calcium 600 + Vit D 400 Softgl] 1 each PO DAILY Cholecalciferol (Vitamin D3) [Vitamin D3] 50,000 unit PO WEEKLY 12/18/15 Diclofenac Sodium [Voltaren] 100 gm TP BID 12/18/15 Gabapentin 300 mg PO TID 12/18/15 Loratadine [Claritin -] 10 mg PO DAILY 12/18/15 Multivitamins [Multivit ([facility] Formulary)] 1 tab PO DAILY 12/18/15 Ranitidine [Zantac -] 150 mg PO BID 12/18/15 Simethicone [Phazyme] 180 mg PO DAILY 12/18/15 hydrOXYzine PAMOATE [Vistaril -] 50 mg PO DAILY 12/18/15 Acetaminophen [Tylenol .Regular Strength -] 650 mg PO Q6H PRN #0 tablet Mag Hydrox/Alh/Smc/Dpha/Lido [Magic Mouthwash *Sjr Formula* -] 5 ml MM Q6HPO #1 bottle 04/21/16 Lidocaine 2% Viscous Oral [Xylocaine 2% Viscous Oral -] 20 ml PO TID 11/24/16 Ondansetron [Zofran *Odt*] 8 mg SL DAILY 11/24/16 Sertraline HCl [Zoloft] 50 mg PO DAILY 11/24/16 Omeprazole 20 mg PO DAILY #30 capsule. 11/28/16 Diphenhydramine HCl 25 mg PO TID 02/02/18 Doxepin HCl [Sinequan -] 25 mg PO HS 02/02/18 Famotidine 20 mg PO DAILY 02/02/18 Valacyclovir HCl [Valtrex -] 1,000 mg PO TID #0 tab 02/03/18 Anemia: Yes (BLOOD TRANSFSIONS) Asthma: No Cancer: No Cardiac Disorders: No CVA: No COPD: No CHF: No DVT: No Dementia: No Diabetes: No Dialysis: No GI Disorders: Yes (ULCER) Disorders: No HTN: No Hypercholesterolemia: No Liver Disease: No Seizures: No Thyroid Disease: No - Surgical History Abdominal Surgery: Yes (GASTRIC BYPASS, ULCER) Appendectomy: No Cardiac Surgery: No Cholecystectomy: Yes Gastric Stapling: No (BYPASS) Lung Surgery: No Neurologic Surgery: Yes (C SPINE.) Orthopedic Surgery: No - Suicide/Smoking/Psychosocial Hx Smoking Status: No Smoking History: Never smoked Have you smoked in the past 12 months: No Information on smoking cessation initiated: No Hx Alcohol Use: No Drug/Substance Use Hx: No Substance Use Type: None Hx Substance Use Treatment: No Patient Lives Alone: No Abd/GI Specific PMHX - Complaint Specific PMHX Gall Bladder Disease: Yes (cholecystectomy) GERD: Yes Review of Systems - Review of Systems Able to Perform ROS?: No Constitutional: Yes: Weakness HEENTM: No: Symptoms Reported Respiratory: No: Symptoms reported Cardiac (ROS): No: Symptoms Reported ABD/GI: Yes: Constipated, Poor Appetite. No: Rectal Bleeding : No: Symptoms Reported Musculoskeletal: Yes: Back Pain Integumentary: No: Symptoms Reported Neurological: Yes: Weakness. No: Headache, Dizziness *Physical Exam - Vital Signs Last Vital Signs Temp Pulse Resp BP Pulse Ox 99.1 F 112 H 18 102/83 100 02/02/18 17:35 02/02/18 17:35 02/02/18 17:35 02/02/18 17:35 02/02/18 17:35 - Physical Exam General Appearance: Yes: Nourished, Appropriately Dressed. No: Apparent Distress HEENT: positive: EOMI, MADELIN, Pale Conjunctivae Neck: positive: Normal Thyroid, Supple Respiratory/Chest: positive: Lungs Clear, Normal Breath Sounds. negative: Respiratory Distress, Accessory Muscle Use Cardiovascular: positive: Regular Rhythm, Tachycardia. negative: Murmur Gastrointestinal/Abdominal: positive: Soft, Tenderness (right upper quadrant, right flank) Musculoskeletal: positive: CVA Tenderness (R) Extremity: positive: Normal Capillary Refill. negative: Pedal Edema Integumentary: positive: Normal Color, Warm, Moist Neurologic: positive: Motor Strength 5/5 (ambulatory) ED Treatment Course - LABORATORY CBC & Chemistry Diagram: 02/03/18 16:40 02/03/18 06:00 Medical Decision Making - Medical Decision Making 02/02/18 17:59 Patient with history of anemia and was told by her PCP secondary to low hemoglobin and hematocrit to except to come in for blood transfusion. Patient now stating her symptoms of anemia including fatigue and weakness have increased over the past few days and so decided come to the ER. Patient also endorses right upper quadrant pain which she states has had intermittently for numerous months which she has been seen here in the emergency room for with negative findings. Patient ordered for labs, type and screen, IV fluids, urine, and EKG. *DC/Admit/Observation/Transfer Diagnosis at time of Disposition: Symptomatic anemia - Discharge Dispostion Disposition: HOME Condition at time of disposition: Good - Referrals - Patient Instructions - Post Discharge Activity
--- NOTE | 2018-02-02 18:19 | PDOC ---
*Physical Exam - Vital Signs Last Vital Signs Temp Pulse Resp BP Pulse Ox 99.1 F 112 H 18 102/83 100 02/02/18 17:35 02/02/18 17:35 02/02/18 17:35 02/02/18 17:35 02/02/18 17:35 ED Treatment Course - LABORATORY CBC & Chemistry Diagram: 02/03/18 16:40 02/03/18 06:00 Medical Decision Making - Medical Decision Making 02/02/18 18:17 Patient seen and evaluated with the nurse practitioner. I agree with the overall evaluation, assessment, and management with the following summary of visit: 47y/o F h/o anemia p/w presumed symptomatic anemia. Encouraged by PCP to present for transfusion about 2 weeks ago but patient delayed. no syncope/cp, just increasing malaise. VS as noted agree with exam labs, t+s transfuse prn dispo accordingly *DC/Admit/Observation/Transfer Diagnosis at time of Disposition: Symptomatic anemia - Discharge Dispostion Disposition: HOME Condition at time of disposition: Good - Referrals - Patient Instructions - Post Discharge Activity
[2018-02-02 18:22] LABS: URINE APPEARANCE SLCLOUDY; URINE BILIRUBIN NEGATIVE (<2.0 mg/dL); URINE COLOR YELLOW; URINE GLUCOSE (UA) NEGATIVE (NEGATIVE); URINE KETONE NEGATIVE (NEGATIVE); URINE NITRITE NEGATIVE (NEGATIVE); URINE PROTEIN NEGATIVE (NEGATIVE); URINE UROBILINOGEN NEGATIVE mg/dL (0.2-1.0)
[2018-02-02 18:24] LABS: URINE LEUK ESTERASE 3+ (NEGATIVE)
[2018-02-02 18:26] LABS: EPI CELLS MODERATE /HPF (FEW); HCG,QUALITATIVE URINE NEGATIVE; URINE HYALINE CAST 2 /lpf; URINE MUCUS RARE
[2018-02-02 18:57] LABS: ALBUMIN 3.3 g/dl (3.4-5.0); ALK PHOS 109 U/L (45-117); ANION GAP 7 (8-16); BILIRUBIN,TOTAL 0.2 mg/dL (0.2-1.0); BLOOD UREA NITROGEN 10 mg/dL (7-18); CALCIUM 7.8 mg/dL (8.5-10.1); CHLORIDE 114 mmol/L (98-107); CO2 20 mmol/L (21-32); CREATININE 0.7 mg/dL (0.55-1.02); GLUCOSE,RANDOM 101 mg/dL (74-106); LIPASE 81 U/L (73-393); POTASSIUM 4.6 mmol/L (3.5-5.1); SGOT/AST 19 U/L (15-37); SGPT/ALT 15 U/L (12-78); SODIUM 141 mmol/L (136-145); TOT PROT 6.4 g/dl (6.4-8.2)
[2018-02-02 19:02] LABS: EOS % 2.4 % (0-4.5); HEMATOCRIT 25.4 % (32.4-45.2); LYMPH % 35.2 % (8-40); MCHC 27.7 g/dl (32.0-36.0); MEAN CELL VOLUME 61.5 fl (80-96); MEAN PLT VOLUME 8.8 fl (7.5-11.1); MONO % 5.8 % (3.8-10.2); NEUT % 55.6 % (42.8-82.8); PLATELET COUNT 480 K/MM3 (134-434); RBC 4.13 M/mm3 (3.60-5.2)
[2018-02-02 19:06] LABS: ADD RBC MORPHOLOGY YES
[2018-02-02 19:30] LABS: ANISOCYTOSIS 3+; MACROCYTOSIS 1+; OVALOCYTE 1+
[2018-02-02 19:32] LABS: PLATELET ESTIMATE SLT INCREASE
--- NOTE | 2018-02-02 19:32 | PDOC ---
*Physical Exam - Vital Signs Last Vital Signs Temp Pulse Resp BP Pulse Ox 99.1 F 112 H 18 102/83 100 02/02/18 17:35 02/02/18 17:35 02/02/18 17:35 02/02/18 17:35 02/02/18 19:18 ED Treatment Course - LABORATORY CBC & Chemistry Diagram: 02/02/18 18:10 02/02/18 18:10 - ADDITIONAL ORDERS Additional order review: Laboratory Results 02/02/18 02/02/18 02/02/18 18:10 18:10 18:10 Sodium 141 Potassium 4.6 Chloride 114 H Carbon Dioxide 20 L Anion Gap 7 L BUN 10 Creatinine 0.7 Creat Clearance w eGFR > 60 Random Glucose 101 Calcium 7.8 L Total Bilirubin 0.2 D AST 19 ALT 15 Alkaline Phosphatase 109 Total Protein 6.4 Albumin 3.3 L Lipase 81 Urine Color Yellow Urine Appearance Slcloudy Urine pH 5.0 Ur Specific [place] 1.018 Urine Protein Negative Urine Glucose (UA) Negative Urine Ketones Negative Urine Blood Negative Urine Nitrite Negative Urine Bilirubin Negative Urine Urobilinogen Negative Ur Leukocyte Esterase 3+ H Urine WBC (Auto) 4 Urine RBC (Auto) 3 Ur Epithelial Cells Moderate Hyaline Casts 2 Urine Mucus Rare Urine HCG, Qual Negative Crossmatch See Detail 02/02/18 18:10 RBC 4.13 MCV 61.5 L MCHC 27.7 L RDW 28.0 H MPV 8.8 D Neutrophils % 55.6 Lymphocytes % 35.2 Monocytes % 5.8 Eosinophils % 2.4 Basophils % 1.0 - Medications Given in the ED: ED Medications Discontinued Medications Generic Name Dose Route Start Last Admin Trade Name Racquel PRN Reason Stop Dose Admin Sodium Chloride 1,000 mls @ 1,000 mls/hr 02/02/18 17:51 02/02/18 18:19 Normal Saline - IV 02/02/18 18:50 1,000 mls/hr ASDIR STA Administration *DC/Admit/Observation/Transfer Diagnosis at time of Disposition: Symptomatic anemia - Discharge Dispostion Condition at time of disposition: Fair Decision to Admit order: Yes - Referrals Referrals: Sher Gaitan MD [Primary Care Provider] - - Patient Instructions - Post Discharge Activity
--- NOTE | 2018-02-02 20:15 | HP ---
CHIEF COMPLAINT: Weakness PCP: Sher Gaitan MD HISTORY OF PRESENT ILLNESS: 47 yo F with PMHx of anemia requiring transfusion presents to the ED with complaints of generalized fatigue, paleness, and complaining of right upper quadrant pain intimately for the past month without nausea, vomiting, or diarrhea. Patient denies fever or chills but states has been constipated the past week despite following a strict diet. She has had several episodes of symptomatic anemia in past requiring transfusion. PCP sent her for transfusion two weeks ago but unable to go do to personal reasons. Denies fever, chills, nausea or vomiting. ER course was notable for: (1)Hgb 7.0 (2)type and screen sent (3) Recent Travel:none PAST MEDICAL HISTORY: ulcer ,symptomatic anemia PAST SURGICAL HISTORY:gastric bypass, Cholecystectomy, C-spine Social History: Smoking:never. Alcohol:denies Drugs: denies Family History: Allergies iron dextran complex Allergy (Intermediate, Verified 02/02/18 17:33) iron sucrose complex [From Venofer] Allergy (Intermediate, Verified 02/02/18 17: 33) Hives GETS IV STEROIDS PRIOR TO INFUSION tape Allergy (Intermediate, Uncoded 02/02/18 17:33) Rash ALL HOME MEDICATIONS: Home Medications Medication Instructions Recorded Buspirone HCl [Buspar -] 10 mg PO BID 12/18/15 Calcium Carbonate/Vitamin D3 1 each PO DAILY 12/18/15 [Calcium 600 + Vit D 400 Softgl] Cholecalciferol (Vitamin D3) 50,000 unit PO WEEKLY 12/18/15 [Vitamin D3] Diclofenac Sodium [Voltaren] 100 gm TP BID 12/18/15 Gabapentin 300 mg PO TID 12/18/15 Loratadine [Claritin -] 10 mg PO DAILY 12/18/15 Multivitamins [Multivit ([facility] 1 tab PO DAILY 12/18/15 Formulary)] Ranitidine [Zantac -] 150 mg PO BID 12/18/15 Simethicone [Phazyme] 180 mg PO DAILY 12/18/15 hydrOXYzine PAMOATE [Vistaril -] 50 mg PO DAILY 12/18/15 Acetaminophen [Tylenol .Regular 650 mg PO Q6H PRN #0 tablet 04/21/16 Strength -] Mag Hydrox/Alh/Smc/Dpha/Lido 5 ml MM Q6HPO #1 bottle 04/21/16 [Magic Mouthwash *Sjr Formula* -] Lidocaine 2% Viscous Oral 20 ml PO TID 11/24/16 [Xylocaine 2% Viscous Oral -] Ondansetron [Zofran *Odt*] 8 mg SL DAILY 11/24/16 Sertraline HCl [Zoloft] 50 mg PO DAILY 11/24/16 Omeprazole 20 mg PO DAILY #30 capsule. 11/28/16 Valacyclovir HCl [Valtrex -] 1,000 mg PO TID 04/20/17 Ibuprofen [Motrin -] 600 mg PO QID #28 tablet 09/19/17 Diphenhydramine HCl 25 mg PO TID 02/02/18 Doxepin HCl [Sinequan -] 25 mg PO HS 02/02/18 Famotidine 20 mg PO DAILY 02/02/18 REVIEW OF SYSTEMS CONSTITUTIONAL: generalized weakness Absent: fever, chills, diaphoresis, , malaise, loss of appetite, weight change HEENT: Absent: rhinorrhea, nasal congestion, throat pain, throat swelling, difficulty swallowing, mouth swelling, ear pain, eye pain, visual changes CARDIOVASCULAR: lightheadedness, Absent: chest pain, syncope, palpitations, irregular heart rate, peripheral edema RESPIRATORY: Absent: cough, shortness of breath, dyspnea with exertion, orthopnea, wheezing, stridor, hemoptysis GASTROINTESTINAL: Absent: abdominal pain, abdominal distension, nausea, vomiting, diarrhea, constipation, melena, hematochezia GENITOURINARY: Absent: dysuria, frequency, urgency, hesitancy, hematuria, flank pain, genital pain MUSCULOSKELETAL: Absent: myalgia, arthralgia, joint swelling, back pain, neck pain SKIN: Absent: rash, itching, pallor HEMATOLOGIC/IMMUNOLOGIC: Absent: easy bleeding, easy bruising, lymphadenopathy, frequent infections ENDOCRINE: Absent: unexplained weight gain, unexplained weight loss, heat intolerance, cold intolerance NEUROLOGIC: Absent: headache, focal weakness or paresthesias, dizziness, unsteady gait, seizure, mental status changes, bladder or bowel incontinence PSYCHIATRIC: Absent: anxiety, depression, suicidal or homicidal ideation, hallucinations. PHYSICAL EXAMINATION Vital Signs - 24 hr 02/02/18 02/02/18 17:35 19:18 Temperature 99.1 F Pulse Rate 112 H Respiratory 18 Rate Blood Pressure 102/83 O2 Sat by Pulse 100 100 Oximetry (%) GENERAL: AAOx3 NAD HEAD: Normal with no signs of trauma. EYES: EWA, extraocular movements intact, pale conjunctiva. EARS, NOSE, THROAT: dry mucous membranes. NECK: supple without lymphadenopathy, JVD, or masses. LUNGS: CTAB. No wheezes, and no crackles. No accessory muscle use. HEART: RRR, normal S1 and S2 without murmur, rub or gallop. ABDOMEN: Soft, mild RUQ tenderness, not distended, normoactive bowel sounds, no guarding, no rebound, no masses. MUSCULOSKELETAL: Normal range of motion at all joints. No bony deformities or tenderness. No CVA tenderness. LOWER EXTREMITIES: 2+ pulses, warm, well-perfused. No calf tenderness. No peripheral edema. NEUROLOGICAL: Cranial nerves II-XII intact. Normal speech. PSYCHIATRIC: Cooperative. Good eye contact. Appropriate mood and affect. Laboratory Results - last 24 hr 02/02/18 02/02/18 02/02/18 18:10 18:10 18:10 WBC 7.0 RBC 4.13 Hgb 7.0 L D Hct 25.4 L MCV 61.5 L MCH 17.0 L D MCHC 27.7 L RDW 28.0 H Plt Count 480 H D MPV 8.8 D Neutrophils % 55.6 Lymphocytes % 35.2 Monocytes % 5.8 Eosinophils % 2.4 Basophils % 1.0 Nucleated RBC % 0 Hypochromia 3+ Platelet Estimate Slt increase Platelet Comment Polychromasia 1+ Poikilocytosis 1+ Anisocytosis 3+ Microcytosis 2+ Macrocytosis 1+ Ovalocytes 1+ Sodium 141 Potassium 4.6 Chloride 114 H Carbon Dioxide 20 L Anion Gap 7 L BUN 10 Creatinine 0.7 Creat Clearance w eGFR > 60 Random Glucose 101 Calcium 7.8 L Total Bilirubin 0.2 D AST 19 ALT 15 Alkaline Phosphatase 109 Total Protein 6.4 Albumin 3.3 L Lipase 81 Urine Color Yellow Urine Appearance Slcloudy Urine pH 5.0 Ur Specific [place] 1.018 Urine Protein Negative Urine Glucose (UA) Negative Urine Ketones Negative Urine Blood Negative Urine Nitrite Negative Urine Bilirubin Negative Urine Urobilinogen Negative Ur Leukocyte Esterase 3+ H Urine WBC (Auto) 4 Urine RBC (Auto) 3 Ur Epithelial Cells Moderate Hyaline Casts 2 Urine Mucus Rare Urine HCG, Qual Negative Blood Type Antibody Screen Crossmatch 02/02/18 18:10 WBC RBC Hgb Hct MCV MCH MCHC RDW Plt Count MPV Neutrophils % Lymphocytes % Monocytes % Eosinophils % Basophils % Nucleated RBC % Hypochromia Platelet Estimate Platelet Comment Polychromasia Poikilocytosis Anisocytosis Microcytosis Macrocytosis Ovalocytes Sodium Potassium Chloride Carbon Dioxide Anion Gap BUN Creatinine Creat Clearance w eGFR Random Glucose Calcium Total Bilirubin AST ALT Alkaline Phosphatase Total Protein Albumin Lipase Urine Color Urine Appearance Urine pH Ur Specific [place] Urine Protein Urine Glucose (UA) Urine Ketones Urine Blood Urine Nitrite Urine Bilirubin Urine Urobilinogen Ur Leukocyte Esterase Urine WBC (Auto) Urine RBC (Auto) Ur Epithelial Cells Hyaline Casts Urine Mucus Urine HCG, Qual Blood Type B POSITIVE Antibody Screen Negative Crossmatch See Detail ASSESSMENT/PLAN: 47 yo F with PMHx of anemia requiring transfusion presents to the ED with complaints of generalized fatigue, paleness, and complaining of right upper quadrant pain intimately for the past month placed on observation for transfusion of PRBC for symptomatic anemia. Problem List - Problem (1) Symptomatic anemia Assessment/Plan: placed on observation * Will transfuse 1 unit PRBC * repeat CBC post transfusion. Visit type - Emergency Visit Emergency Visit: Yes ED Registration Date: 02/02/18 Care time: The patient presented to the Emergency Department on the above date and was hospitalized for further evaluation of their emergent condition. - New Patient This patient is new to me today: Yes Date on this admission: 02/03/18 - Critical Care Critical Care patient: No Hospitalist Screening - Colonoscopy Questionnaire Colonoscopy Questionnaire: Colonoscopy Questionnaire - Patient: 50 - 75 years old and never had a screening colonoscopy: No History of colon or rectal polyps, or CA: No History of IBD, Crohn's disease or UC: No History of abdominal radiation therapy as a child: No - Relative: 1 with colon or rectal CA, or polyps at age 60 or younger: No Colon or rectal CA diagnosed at age 45 or younger: No Multiple relatives with colon or rectal CA: No - Outcome: Screening Result: Negative Screen
--- NOTE | 2018-02-02 21:02 | PN ---
Teaching Attending Note Name of Resident: Glynn Hernández ATTENDING PHYSICIAN STATEMENT I saw and evaluated the patient. I reviewed the resident's note and discussed the case with the resident. I agree with the resident's findings and plan as documented. SUBJECTIVE: OBJECTIVE: ASSESSMENT AND PLAN: this is a 47 y/o female with hx of chronic anemia she is know to hematology, presented to the hospital with worsening SOB, and HUIZAR she is being admitted for symptomatic anemia plan: admit to the obs for transfusion consult hematology abdominal ultrasound in the morning when the patient in NPO
[2018-02-02 21:42] VITALS: BMI 24.4
[2018-02-03] MEDS: GABAPENTIN 300 MG CAPSULE (FP) PO SCH ×2 (03:41→15:31)
[2018-02-03] MEDS ORDERED: ONDANSETRON *ODT* 4 MG TABLET SL SCH ×3 (03:45)
[2018-02-03] MEDS ORDERED: RANITIDINE HCL 150 MG TABLET (FP) PO SCH (03:45)
[2018-02-03 07:52] LABS: HEMATOCRIT 26.7 % (32.4-45.2); MCHC 29.9 g/dl (32.0-36.0); MEAN CELL VOLUME 66.7 fl (80-96); MEAN PLT VOLUME 8.3 fl (7.5-11.1); PLATELET COUNT 413 K/MM3 (134-434); RDW 31.3 % (11.6-15.6); WHITE BLOOD COUNT 6.1 K/mm3 (4.0-10.0)
[2018-02-03 07:58] LABS: MCH 19.9 pg (25.7-33.7)
[2018-02-03 08:52] LABS: ANION GAP 4 (8-16); BLOOD UREA NITROGEN 11 mg/dL (7-18); CALCIUM 7.3 mg/dL (8.5-10.1); CHLORIDE 114 mmol/L (98-107); CO2 21 mmol/L (21-32); GLUCOSE,RANDOM 77 mg/dL (74-106); MAGNESIUM 2.1 mg/dL (1.8-2.4); POTASSIUM 4.4 mmol/L (3.5-5.1); SODIUM 139 mmol/L (136-145)
[2018-02-03 08:53] LABS: CREATININE 0.5 mg/dL (0.55-1.02); PHOSPHOROUS 2.7 mg/dL (2.5-4.9)
--- NOTE | 2018-02-03 10:12 | EKG ---
Test Reason : Blood Pressure : / mmHG Vent. Rate : 093 BPM Atrial Rate : 093 BPM P-R Int : 148 ms QRS Dur : 078 ms QT Int : 358 ms P-R-T Axes : 059 058 034 degrees QTc Int : 445 ms NORMAL SINUS RHYTHM NORMAL ECG WHEN COMPARED WITH ECG OF 24-NOV-2016 20:56, NONSPECIFIC T WAVE ABNORMALITY NOW EVIDENT IN ANTERIOR LEADS Confirmed by EDY GOMEZ, MARIA EUGENIA ([id number]) on 02/03/2018 10:12:29 AM Referred By: Confirmed By:MARIA EUGENIA SNOW MD
[2018-02-03 13:15] LABS: ALBUMIN 2.9 g/dl (3.4-5.0); BILIRUBIN,DIRECT < 0.2 mg/dL (0.0-0.2); SGOT/AST 11 U/L (15-37); SGPT/ALT 12 U/L (12-78)
[2018-02-03 13:16] LABS: ALK PHOS 93 U/L (45-117); BILIRUBIN,TOTAL 0.5 mg/dL (0.2-1.0); TOT PROT 5.3 g/dl (6.4-8.2)
[2018-02-03 15:33] VITALS: BP 141/86; PULSE 83; TEMP 98.4
[2018-02-03] MEDS ORDERED: ACETAMINOPHEN 325 MG TABLET (FP) PO PRN (16:05)
[2018-02-03] MEDS ORDERED: MAG HYDROX/ALH/SMC/DPHA/LIDO 240 ML MOUTHWASH MM PRN (16:05)
[2018-02-03] MEDS ORDERED: LIDOCAINE VISCOUS 2% ORAL/TOP 20 ML UNIT-DOSE CUP MM PRN (16:06)
--- NOTE | 2018-02-03 16:24 | DS ---
Physical Exam: SUBJECTIVE: Patient seen and examined, sleeping comfortably, when woken started pointing to her right side of abdomen and right lateral chest. OBJECTIVE: Vital Signs Period Temp Pulse Resp BP Sys/Bruno Pulse Ox Last 24 Hr 98.2 F-99.1 F 78-112 18-20 102-141/57-86 100-100 PHYSICAL EXAM General: sleeping comfortably, no distress Abdomen:Soft, ND, positive bowel sounds, right lateral upper abdominal want tenderness but not elicited when patient distracted, no voluntary or involuntary guarding or rigidity Chest: CTAB, no rales or wheezing Extremities: no edema LABS Laboratory Results - last 24 hr 02/02/18 02/02/18 02/02/18 18:10 18:10 18:10 WBC 7.0 RBC 4.13 Hgb 7.0 L D Hct 25.4 L MCV 61.5 L MCH 17.0 L D MCHC 27.7 L RDW 28.0 H Plt Count 480 H D MPV 8.8 D Neutrophils % 55.6 Lymphocytes % 35.2 Monocytes % 5.8 Eosinophils % 2.4 Basophils % 1.0 Nucleated RBC % 0 Hypochromia 3+ Platelet Estimate Slt increase Platelet Comment Polychromasia 1+ Poikilocytosis 1+ Anisocytosis 3+ Microcytosis 2+ Macrocytosis 1+ Ovalocytes 1+ Sodium 141 Potassium 4.6 Chloride 114 H Carbon Dioxide 20 L Anion Gap 7 L BUN 10 Creatinine 0.7 Creat Clearance w eGFR > 60 Random Glucose 101 Calcium 7.8 L Phosphorus Magnesium Total Bilirubin 0.2 D Direct Bilirubin AST 19 ALT 15 Alkaline Phosphatase 109 Total Protein 6.4 Albumin 3.3 L Lipase 81 Urine Color Yellow Urine Appearance Slcloudy Urine pH 5.0 Ur Specific Mammoth 1.018 Urine Protein Negative Urine Glucose (UA) Negative Urine Ketones Negative Urine Blood Negative Urine Nitrite Negative Urine Bilirubin Negative Urine Urobilinogen Negative Ur Leukocyte Esterase 3+ H Urine WBC (Auto) 4 Urine RBC (Auto) 3 Ur Epithelial Cells Moderate Hyaline Casts 2 Urine Mucus Rare Urine HCG, Qual Negative Blood Type Antibody Screen Crossmatch 02/02/18 02/03/18 02/03/18 18:10 06:00 06:00 WBC 6.1 RBC 4.00 Hgb 8.0 L D Hct 26.7 L MCV 66.7 L MCH 19.9 L D MCHC 29.9 L RDW 31.3 H Plt Count 413 MPV 8.3 Neutrophils % Lymphocytes % Monocytes % Eosinophils % Basophils % Nucleated RBC % Hypochromia Platelet Estimate Platelet Comment Polychromasia Poikilocytosis Anisocytosis Microcytosis Macrocytosis Ovalocytes Sodium 139 Potassium 4.4 Chloride 114 H Carbon Dioxide 21 Anion Gap 4 L BUN 11 Creatinine 0.5 L Creat Clearance w eGFR Random Glucose 77 Calcium 7.3 L Phosphorus 2.7 Magnesium 2.1 Total Bilirubin 0.5 D Direct Bilirubin < 0.2 AST 11 L ALT 12 Alkaline Phosphatase 93 Total Protein 5.3 L Albumin 2.9 L Lipase Urine Color Urine Appearance Urine pH Ur Specific Mammoth Urine Protein Urine Glucose (UA) Urine Ketones Urine Blood Urine Nitrite Urine Bilirubin Urine Urobilinogen Ur Leukocyte Esterase Urine WBC (Auto) Urine RBC (Auto) Ur Epithelial Cells Hyaline Casts Urine Mucus Urine HCG, Qual Blood Type B POSITIVE Antibody Screen Negative Crossmatch See Detail 02/03/18 12:27 WBC RBC Hgb Hct MCV MCH MCHC RDW Plt Count MPV Neutrophils % Lymphocytes % Monocytes % Eosinophils % Basophils % Nucleated RBC % Hypochromia Platelet Estimate Platelet Comment Polychromasia Poikilocytosis Anisocytosis Microcytosis Macrocytosis Ovalocytes Sodium Potassium Chloride Carbon Dioxide Anion Gap BUN Creatinine Creat Clearance w eGFR Random Glucose Calcium Phosphorus Magnesium Total Bilirubin Cancelled Direct Bilirubin Cancelled AST Cancelled ALT Cancelled Alkaline Phosphatase Cancelled Total Protein Cancelled Albumin Cancelled Lipase Urine Color Urine Appearance Urine pH Ur Specific Mammoth Urine Protein Urine Glucose (UA) Urine Ketones Urine Blood Urine Nitrite Urine Bilirubin Urine Urobilinogen Ur Leukocyte Esterase Urine WBC (Auto) Urine RBC (Auto) Ur Epithelial Cells Hyaline Casts Urine Mucus Urine HCG, Qual Blood Type Antibody Screen Crossmatch Abdominal Ultrasound: Right upper abdomen ultrasound. The liver measures 18 cm in sagittal length with a slightly dense echotexture. Status post cholecystectomy since 1989. No intrahepatic bile duct dilatation is seen. 2 measurements of the common bile ducts were obtained measuring 1.2 and 1 cm. The 1 cm measurement appears to be more accurate. The right kidney measures 10.3 cm sagittal length and appears unremarkable. The pancreas was not visualized presumably due to overlying bowel gas. Visualized portion of the proximal abdominal aorta and inferior vena cava appear unremarkable. Normal flow in the main portal vein. IMPRESSION: Mild hepatomegaly and fatty infiltration of the liver. Please correlate with liver enzymes. Status post cholecystectomy. Borderline dilatation of the common bile duct likely measuring 1 cm in diameter. Correlate clinically for further evaluation. HOSPITAL COURSE: Date of Admission:02/02/18 Date of Discharge: 02/03/18 Minutes to complete discharge: 35 Discharge Summary Reason For Visit: SECONDARY ANEMIA Current Active Problems Symptomatic anemia (Chronic) Hospital Course: patient received 3 units of PRBC with appropriate response. Her symptoms improved. Her hemoglobin on discharge is 9.8. She reports vague right sided abdominal symptoms with non concerning exam. She had abdominal ultrasound with mild hepatomegaly likely fatty liver and borderline CBD 1 cm, She was tolerating diet well, ambulatory and with normal LFts. She is advised outpatient follow up with her janitorial maintenance worker and Histology Teacher. Condition: Good - Instructions Diet, Activity, Other Instructions: You received 3 units of PRBC and your hemoglobin on discharge is 9.8. Please follow up with your janitorial maintenance worker and your radiator repairer within the next 1 week. COntinue all your home medications as before. Your liver blood tests were normal. You received belly ultrasound and are advised outpatient follow up with your radiator repairer. Follow up CBC with your janitorial maintenance worker in 1 week. If you notice any new pain, fevers, chills, nausea, vomiting, inability to eat or any new concerns, call 911 or come to ED. Referrals: Rosa Gallegos MD [Staff Physician] - Sher Gaitan MD [Primary Care Provider] - Disposition: HOME - Home Medications Comprehensive Discharge Medication List: Ambulatory Orders Buspirone HCl [Buspar -] 10 mg PO BID 12/18/15 Calcium Carbonate/Vitamin D3 [Calcium 600 + Vit D 400 Softgl] 1 each PO DAILY Cholecalciferol (Vitamin D3) [Vitamin D3] 50,000 unit PO WEEKLY 12/18/15 Diclofenac Sodium [Voltaren] 100 gm TP BID 12/18/15 Gabapentin 300 mg PO TID 12/18/15 Loratadine [Claritin -] 10 mg PO DAILY 12/18/15 Multivitamins [Multivit ([facility] Formulary)] 1 tab PO DAILY 12/18/15 Ranitidine [Zantac -] 150 mg PO BID 12/18/15 Simethicone [Phazyme] 180 mg PO DAILY 12/18/15 hydrOXYzine PAMOATE [Vistaril -] 50 mg PO DAILY 12/18/15 Acetaminophen [Tylenol .Regular Strength -] 650 mg PO Q6H PRN #0 tablet Mag Hydrox/Alh/Smc/Dpha/Lido [Magic Mouthwash *[facility] Formula* -] 5 ml MM Q6HPO #1 bottle 04/21/16 Lidocaine 2% Viscous Oral [Xylocaine 2% Viscous Oral -] 20 ml PO TID 11/24/16 Ondansetron [Zofran *Odt*] 8 mg SL DAILY 11/24/16 Sertraline HCl [Zoloft] 50 mg PO DAILY 11/24/16 Omeprazole 20 mg PO DAILY #30 capsule. 11/28/16 Diphenhydramine HCl 25 mg PO TID 02/02/18 Doxepin HCl [Sinequan -] 25 mg PO HS 02/02/18 Famotidine 20 mg PO DAILY 02/02/18 Valacyclovir HCl [Valtrex -] 1,000 mg PO TID #0 tab 02/03/18 This patient is new to me today: Yes Date on this admission: 02/03/18 Emergency Visit: No Critical Care patient: No - Discharge Referral Referred to [facility] Med P.C.: No
[2018-02-03 16:55] LABS: HEMATOCRIT 32.2 % (32.4-45.2); HEMOGLOBIN 9.8 GM/dL (10.7-15.3); MCH 21.1 pg (25.7-33.7); MCHC 30.5 g/dl (32.0-36.0); MEAN CELL VOLUME 69.3 fl (80-96); MEAN PLT VOLUME 8.6 fl (7.5-11.1); PLATELET COUNT 519 K/MM3 (134-434); RBC 4.65 M/mm3 (3.60-5.2); RDW 31.9 % (11.6-15.6); WHITE BLOOD COUNT 6.9 K/mm3 (4.0-10.0)
== END 2018-02-03 19:34 | disposition home or self-care (01) ==
LOC: JER 17:30 → JERBED 19:40 → J8W 21:20
PROVIDERS: ADMIT Internal Medicine; ATTEND Hospitalist
PROC: 30233N1 Transfusion of Nonautologous Red Blood Cells into Peripheral Vein, Percutaneous Approach (ICD-10-PCS; principal; 2018-02-02)
PROC: 3E0337Z Introduction of Electrolytic and Water Balance Substance into Peripheral Vein, Percutaneous Approach (ICD-10-PCS; 2018-02-02)
DX: D64.89 Other specified anemias (principal); Z98.84 Bariatric surgery status; Z91.048 Other nonmedicinal substance allergy status
CPT/HCPCS: 36415; 36430; 76705-TC; 80048; 80053; 80076; 81003; 81015; 83690; 83735; 84100; 84703; 85025; 85027; 86850; 86900; 86901; 86922; 87077; 87086; 93005; 93010; 96360; 99285-25; G0378; J7030; P9038; P9058; Q0162

== ENCOUNTER 2019-01-29 12:38 | Observation (INO) | payer OTHER ==
--- NOTE | 2019-01-29 12:41 | PDOC ---
Rapid Medical Evaluation Time Seen by Provider: 01/29/19 12:39 Medical Evaluation: Allergies Allergy/AdvReac Type Severity Reaction Status Date / Time iron dextran complex Allergy Intermediate Verified 02/02/18 17:33 iron sucrose complex Allergy Intermediate Hives Verified 02/02/18 17:33 [From Venofer] tape Allergy Intermediate Rash Uncoded 02/02/18 17:33 01/29/19 12:39 I have performed a brief in-person evaluation of this patient. The patient presents with a chief complaint of: pain to R lower back radiating down leg, anemia (hx of anemia requiring 2x yearly transfusions), SOB, lightheaded, dizziness - Hg was 6.0 last week Pertinent physical exam findings: ambulatory, tenderness to R lower back I have ordered the following: labs The patient will proceed to the ED for further evaluation.
[2019-01-29] MEDS ORDERED: ACETAMINOPHEN 1000 MG/100 ML VIAL (NON FORMULARY) IVPB ONE (14:00)
--- NOTE | 2019-01-29 14:04 | PDOC ---
History of Present Illness - General Chief Complaint: Revisit, Lab Variance Stated Complaint: LOWER BACK PAIN/ LOW BLOOD COUNT Time Seen by Provider: 01/29/19 12:39 History Source: Patient Exam Limitations: No Limitations - History of Present Illness Initial Comments: 01/29/19 13:59 48F with a PMH of anemia requiring transfusions who presents to the ER after getting a call from her PCP, Dr. Gaitan, for a hgb of 6.0 1 month ago. She states that she did not present immediately due to "life". She admits to some SOB and chronic low back pain which radiates down her R leg. She denies any hematuria, melena, hematochezia. She states that she has had negative colonoscopies in the past. She denies CP, fever, chills, nausea, vomiting. Past History - Past Medical History Allergies/Adverse Reactions: Allergies Allergy/AdvReac Type Severity Reaction Status Date / Time iron dextran complex Allergy Intermediate Verified 01/29/19 12:40 iron sucrose complex Allergy Intermediate Hives Verified 01/29/19 12:40 [From Venofer] tape Allergy Intermediate Rash Uncoded 01/29/19 12:40 Home Medications: Ambulatory Orders Calcium Carbonate/Vitamin D3 [Calcium 600 + Vit D 400 Softgl] 1 each PO DAILY Cholecalciferol (Vitamin D3) [Vitamin D3] 50,000 unit PO WEEKLY 12/18/15 Diclofenac Sodium [Voltaren] 100 gm TP BID 12/18/15 Gabapentin 300 mg PO TID 12/18/15 Loratadine [Claritin -] 10 mg PO DAILY 12/18/15 Multivitamins [Multivit ([facility] Formulary)] 1 tab PO DAILY 12/18/15 Ranitidine [Zantac -] 150 mg PO BID 12/18/15 Simethicone [Phazyme] 180 mg PO DAILY 12/18/15 Acetaminophen [Tylenol .Regular Strength -] 650 mg PO Q6H PRN #0 tablet Mag Hydrox/Alh/Smc/Dpha/Lido [Magic Mouthwash *[facility] Formula* -] 5 ml MM Q6HPO #1 bottle 04/21/16 Lidocaine 2% Viscous Oral [Xylocaine 2% Viscous Oral -] 20 ml PO TID 11/24/16 Ondansetron [Zofran *Odt*] 8 mg SL DAILY 11/24/16 Sertraline HCl [Zoloft] 50 mg PO DAILY 11/24/16 Omeprazole 20 mg PO DAILY #30 capsule. 11/28/16 Diphenhydramine HCl 25 mg PO TID 02/02/18 Doxepin HCl [Sinequan -] 25 mg PO HS 02/02/18 Ferrous Sulfate [Iron] 325 mg PO BID 01/29/19 Anemia: Yes (BLOOD TRANSFUSIONS) Asthma: No Cancer: No Cardiac Disorders: No CVA: No COPD: No CHF: No DVT: No Dementia: No Diabetes: No Dialysis: No GI Disorders: Yes (ULCER) Disorders: No HTN: No Hypercholesterolemia: No Liver Disease: No Seizures: No Thyroid Disease: No - Surgical History Abdominal Surgery: Yes (GASTRIC BYPASS, ULCER) Appendectomy: No Cardiac Surgery: No Cholecystectomy: Yes Gastric Stapling: No (BYPASS) Lung Surgery: No Neurologic Surgery: Yes (C SPINE.) Orthopedic Surgery: No - Suicide/Smoking/Psychosocial Hx Smoking Status: No Smoking History: Never smoked Have you smoked in the past 12 months: No Information on smoking cessation initiated: No Hx Alcohol Use: No Drug/Substance Use Hx: No Substance Use Type: None Hx Substance Use Treatment: No Review of Systems - Review of Systems Able to Perform ROS?: Yes Comments:: 01/29/19 14:08 GENERAL/CONSTITUTIONAL: No fever or chills. No weakness. HEAD, EYES, EARS, NOSE AND THROAT: No change in vision. No ear pain or discharge. No sore throat. CARDIOVASCULAR: No chest pain, palpitations, or lightheadedness. RESPIRATORY: + for SOB. No cough, wheezing, or hemoptysis. GASTROINTESTINAL: No nausea, vomiting, diarrhea, constipation, or abdominal pain. GENITOURINARY: No dysuria, frequency, hematuria, or change in urination. MUSCULOSKELETAL: No joint or muscle swelling or pain. No neck or back pain. SKIN: No rash or lesions. NEUROLOGIC: No headache, numbness, tingling, focal weakness, loss of consciousness, or change in strength/sensation. ENDOCRINE: No increased thirst. No abnormal weight change. HEMATOLOGIC/LYMPHATIC: + for anemia. No easy bleeding or history of blood clots. ALLERGIC/IMMUNOLOGIC: No hives or skin allergy. Is the patient limited Swedish proficient: No *Physical Exam - Vital Signs Last Vital Signs Temp Pulse Resp BP Pulse Ox 98.2 F 89 16 134/73 100 01/29/19 12:41 01/29/19 12:41 01/29/19 12:41 01/29/19 12:41 01/29/19 12:41 - Physical Exam Comments: 01/29/19 14:15 GENERAL: Well developed, well nourished. Awake and alert. No acute distress. HEENT: Normocephalic, atraumatic. Hearing grossly normal. Moist mucous membranes. PERRLA, EOMI. No conjunctival pallor. Sclera are non-icteric. NECK: Supple. Full ROM. No JVD. CARDIOVASCULAR: Regular rate and rhythm. No murmurs, rubs, or gallops. PULMONARY: No evidence of respiratory distress. Lungs clear to auscultation bilaterally. No wheezing, rales or rhonchi. ABDOMINAL: Soft. Non-tender. Non-distended. No rebound or guarding. GENITOURINARY: No CVA tenderness bilaterally. MUSCULOSKELETAL: Normal range of motion at all joints. No bony deformities or tenderness. EXTREMITIES: No cyanosis. No clubbing. No edema. No calf tenderness or swelling. SKIN: Warm and dry. Normal capillary refill. No rashes. Jaundiced appearing. NEUROLOGICAL: Alert, awake, appropriate. Cranial nerves 2-12 grossly intact. Normal speech. Gait is normal without ataxia. PSYCHIATRIC: Cooperative. Good eye contact. Appropriate mood and affect. ED Treatment Course - LABORATORY CBC & Chemistry Diagram: 01/29/19 13:30 01/29/19 13:30 Medical Decision Making - Medical Decision Making 01/29/19 14:16 48F with a PMH of anemia who is presenting with symptomatic anemia and a hgb 1 month ago of 6.0. Will repeat labs and give blood as needed. 01/29/19 16:12 Pt states that she gets premedicated before receiving blood or iron. Pt did not mention that she gets iron prior to iron studies ordered. Will premedicate and get blood. Consent signed. 01/29/19 16:[address] [place] for admission. *DC/Admit/Observation/Transfer Diagnosis at time of Disposition: Anemia Qualifiers: Anemia type: iron deficiency Iron deficiency anemia type: other iron deficiency Qualified Code(s): D50.8 - Other iron deficiency anemias - Discharge Dispostion Condition at time of disposition: Guarded Decision to Admit order: Yes - Referrals Referrals: Ming Medeiros MD [Primary Care Provider] - - Patient Instructions - Post Discharge Activity
[2019-01-29] MEDS ORDERED: ACETAMINOPHEN INJECTION 100 ML IVPB ONE (14:06)
[2019-01-29 14:18] LABS: ALBUMIN 3.3 g/dl (3.4-5.0); BILIRUBIN,TOTAL 0.3 mg/dL (0.2-1); CALCIUM 7.8 mg/dL (8.5-10.1); CREATININE 0.5 mg/dL (0.55-1.3); POTASSIUM 4.4 mmol/L (3.5-5.1); TOT PROT 5.8 g/dl (6.4-8.2)
[2019-01-29] MEDS ORDERED: CYCLOBENZAPRINE HCL 10 MG TABLET (FP) PO ONE (14:20)
[2019-01-29 14:23] LABS: BASO % 0.8 % (0-2.0); EOS % 4.3 % (0-4.5); HEMATOCRIT 21.7 % (32.4-45.2); MCHC 27.2 g/dl (32.0-36.0); MEAN CELL VOLUME 63.6 fl (80-96); MEAN PLT VOLUME 8.6 fl (7.5-11.1); MONO % 4.8 % (3.8-10.2); NEUT % 52.1 % (42.8-82.8); PLATELET COUNT 148 K/MM3 (134-434); WHITE BLOOD COUNT 4.5 K/mm3 (4.0-10.0)
[2019-01-29 14:28] LABS: MCH 17.3 pg (25.7-33.7)
[2019-01-29 14:29] LABS: HEMOGLOBIN 5.9 GM/dL (10.7-15.3)
[2019-01-29 14:35] LABS: URINE APPEARANCE CLEAR; URINE BILIRUBIN NEGATIVE (NEGATIVE); URINE COLOR YELLOW; URINE GLUCOSE (UA) NEGATIVE (NEGATIVE); URINE KETONE NEGATIVE (NEGATIVE); URINE LEUK ESTERASE NEGATIVE (NEGATIVE); URINE NITRITE NEGATIVE (NEGATIVE); URINE PROTEIN NEGATIVE (NEGATIVE); URINE UROBILINOGEN 0.2 mg/dL (0.2-1.0)
[2019-01-29 14:37] LABS: HCG,QUALITATIVE URINE Negative
[2019-01-29] MEDS ORDERED: CYCLOBENZAPRINE HCL 10 MG TABLET (FP) ONE (14:38)
[2019-01-29 14:48] LABS: ANISOCYTOSIS 2+; MACROCYTOSIS 0; OVALOCYTE 1+; PLATELET ESTIMATE DECREASED
--- NOTE | 2019-01-29 15:24 | EKG ---
Test Reason : Blood Pressure : / mmHG Vent. Rate : 077 BPM Atrial Rate : 077 BPM P-R Int : 142 ms QRS Dur : 076 ms QT Int : 372 ms P-R-T Axes : 055 060 028 degrees QTc Int : 420 ms NORMAL SINUS RHYTHM NORMAL ECG WHEN COMPARED WITH ECG OF 02-FEB-2018 18:32, NO SIGNIFICANT CHANGE WAS FOUND Confirmed by MARIA EUGENIA SNOW MD ([id number]) on 01/29/2019 3:24:27 PM Referred By: Confirmed By:MARIA EUGENIA SNOW MD
--- NOTE | 2019-01-29 15:27 | PDOC ---
Documentation entered by Paula Worthington SCRIBE, acting as scribe for Winston Che MD. Winston Che MD: This documentation has been prepared by the [employer] Adrianna, SCRIBE, under my direction and personally reviewed by me in its entirety. I confirm that the documentation accurately reflects all work, treatment, procedures, and medical decision making performed by me. Attending Attestation - Resident Resident Name: Brain Mantilla - HPI HPI: The patient is a 48 year old female, with a significant PMH of anemia, who presents for abnormal hemoglobin (6.0) for one month. Patient has required transfusions in the past. She endorses mild SOB and chronic low back pain radiating down her RLE. Allergies: NKA Past surgical history: Gastric bypass, cholecystectomy Social history: No reported PCP: Dr. Gaitan 01/29/19 15:24 - Physicial Exam PE: 01/29/19 15:26 Patient is awake and alert, pale appearing, in no distress Normocephalic and atraumatic PERRLA, EOMI, conjunctiva are pale CTA RRR Abdomen soft, nontender, nondistended - Medical Decision Making 01/29/19 15:26 Patient is a 48-year-old female with history of chronic anemia who presents with signs and symptoms of symptomatic anemia. CBC reveals H&H of 5.6 and 21 consistent with iron deficiency anemia. Will obtain iron studies prior to administering 2 units of packed cells. Will admit. Heart Score/ECG Review - Electrocardiogram EKG: Normal - ECG Intrepretation Rhythm: Regular Rhythm - ECG Impressions Normal ECG: Yes
[2019-01-29] MEDS ORDERED: methylPREDNISolone NA SUCC 125 MG/2 ML VIAL IVPUSH ONE (16:08)
[2019-01-29] MEDS ORDERED: methylPREDNISolone NA SUCC 125 MG/2 ML VIAL ONE (16:23)
[2019-01-29] MEDS ORDERED: ACETAMINOPHEN 325 MG TABLET (FP) PO PRN (16:53)
[2019-01-29] MEDS ORDERED: MAG HYDROX/ALH/SMC/DPHA/LIDO 240 ML MOUTHWASH MM PRN (16:53)
[2019-01-29] MEDS ORDERED: ONDANSETRON *ODT* 4 MG TABLET SL PRN (16:53)
--- NOTE | 2019-01-29 16:57 | HP ---
CHIEF COMPLAINT: anemia PCP: dr hoffmann HISTORY OF PRESENT ILLNESS: 48 y/o male with pmh of iron deficiency anemia nd transfusion dependent was sent in by her pcp for blood transfusion. Pt states that her pcp asked her a month ago for transfusion but se delayed it till today. Pt states tat she is getting BT from last 1 years and it was started after her gastric bypass surgery. States she get BT almost twice a yea but this time she delayed it. Reports she is allergic to BT and iron and she gets hives every rime and she gets steroid and Benadryl every time when she gets transfusion. Also report generalized weakness, sob on walking. Denies chest pain. Denies blood in stool, urine. States her menses are regular. Pt aso states tht she had endoscopy and colonoscopy in 2017 which were normal and was advised to get capsule endoscopy which she is delaying it since 2017 and was suppose to get it in [facility] [place]. Pt denies taking NSAID. ER course was notable for: (1)cbc, cmp, pt/inr, iron studies (2)BT (3) Recent Travel: no PAST MEDICAL HISTORY: as above PAST SURGICAL HISTORY: Gastric Bypass' C section x 4 Tubal Ligation Cholecystectomy Social History: Smoking:denies Alcohol:denies Drugs: denies Family History: Allergies iron dextran complex Allergy (Intermediate, Verified 01/29/19 12:40) iron sucrose complex [From Venofer] Allergy (Intermediate, Verified 01/29/19 12: 40) Hives GETS IV STEROIDS PRIOR TO INFUSION tape Allergy (Intermediate, Uncoded 01/29/19 12:40) Rash ALL HOME MEDICATIONS: Home Medications Medication Instructions Recorded Calcium Carbonate/Vitamin D3 1 each PO DAILY 12/18/15 [Calcium 600 + Vit D 400 Softgl] Cholecalciferol (Vitamin D3) 50,000 unit PO WEEKLY 12/18/15 [Vitamin D3] Diclofenac Sodium [Voltaren] 100 gm TP BID 12/18/15 Gabapentin 300 mg PO TID 12/18/15 Loratadine [Claritin -] 10 mg PO DAILY 12/18/15 Multivitamins [Multivit ([facility] 1 tab PO DAILY 12/18/15 Formulary)] Ranitidine [Zantac -] 150 mg PO BID 12/18/15 Simethicone [Phazyme] 180 mg PO DAILY 12/18/15 Acetaminophen [Tylenol .Regular 650 mg PO Q6H PRN #0 tablet 04/21/16 Strength -] Mag Hydrox/Alh/Smc/Dpha/Lido 5 ml MM Q6HPO #1 bottle 04/21/16 [Magic Mouthwash *Sjr Formula* -] Lidocaine 2% Viscous Oral 20 ml PO TID 11/24/16 [Xylocaine 2% Viscous Oral -] Ondansetron [Zofran *Odt*] 8 mg SL DAILY 11/24/16 Sertraline HCl [Zoloft] 50 mg PO DAILY 11/24/16 Omeprazole 20 mg PO DAILY #30 capsule. 11/28/16 Diphenhydramine HCl 25 mg PO TID 02/02/18 Doxepin HCl [Sinequan -] 25 mg PO HS 02/02/18 Ferrous Sulfate [Iron] 325 mg PO BID 01/29/19 REVIEW OF SYSTEMS CONSTITUTIONAL: Absent: fever, chills, diaphoresis, generalized weakness, malaise, loss of appetite, weight change HEENT: Absent: rhinorrhea, nasal congestion, throat pain, throat swelling, difficulty swallowing, mouth swelling, ear pain, eye pain, visual changes CARDIOVASCULAR: Absent: chest pain, syncope, palpitations, irregular heart rate, lightheadedness , peripheral edema RESPIRATORY: Absent: cough, shortness of breath , dyspnea with exertion, orthopnea, wheezing , stridor, hemoptysis GASTROINTESTINAL: Absent: abdominal pain, abdominal distension, nausea, vomiting, diarrhea, constipation, melena, hematochezia GENITOURINARY: Absent: dysuria, frequency, urgency, hesitancy, hematuria, flank pain, genital pain MUSCULOSKELETAL: Absent: myalgia, arthralgia, joint swelling, back pain, neck pain SKIN: Absent: rash, itching, pallor HEMATOLOGIC/IMMUNOLOGIC: Absent: easy bleeding, easy bruising, lymphadenopathy, frequent infections ENDOCRINE: Absent: unexplained weight gain, unexplained weight loss, heat intolerance, cold intolerance NEUROLOGIC: Absent: headache, focal weakness or paresthesias, dizziness, unsteady gait, seizure, mental status changes, bladder or bowel incontinence PSYCHIATRIC: Absent: anxiety, depression, suicidal or homicidal ideation, hallucinations. PHYSICAL EXAMINATION Vital Signs - 24 hr 01/29/19 01/29/19 01/29/19 12:41 14:20 16:38 Temperature 98.2 F 99.1 F Pulse Rate 89 Pulse Rate [ 88 84 Left Radial] Respiratory 16 16 16 Rate Blood Pressure 134/73 Blood Pressure 110/75 116/80 [Right Arm] O2 Sat by Pulse 100 98 97 Oximetry (%) GENERAL: Awake, alert, and fully oriented, in no acute distress. HEAD: Normal with no signs of trauma. EYES conjunctiva pale . No lid lag. EARS, NOSE, THROAT: tongue moist NECK: Normal range of motion, supple without lymphadenopathy, JVD, or masses. LUNGS: Breath sounds equal, clear to auscultation bilaterally. No wheezes, and no crackles. No accessory muscle use. HEART: Regular rate and rhythm, normal S1 and S2 without murmur, rub or gallop. ABDOMEN: Soft, nontender, not distended, normoactive bowel sounds, no guarding, no rebound, no masses. multiple surgical scars MUSCULOSKELETAL: Normal range of motion at all joints. No bony deformities or tenderness. No CVA tenderness. UPPER EXTREMITIES: 2+ pulses, warm, well-perfused. No cyanosis. No clubbing. No peripheral edema. LOWER EXTREMITIES: 2+ pulses, warm, well-perfused. No calf tenderness. No peripheral edema. NEUROLOGICAL: Cranial nerves II-XII intact. Normal speech. Normal gait. PSYCHIATRIC: Cooperative. Good eye contact. Appropriate mood and affect. SKIN: Warm, dry, Laboratory Results - last 24 hr 01/29/19 01/29/19 01/29/19 13:30 13:30 13:30 WBC 4.5 RBC 3.40 L Hgb 5.9 L* Hct 21.7 L D MCV 63.6 L MCH 17.3 L D MCHC 27.2 L RDW 29.0 H Plt Count 148 D MPV 8.6 Absolute Neuts (auto) 2.3 Neutrophils % 52.1 Lymphocytes % 38.0 Monocytes % 4.8 Eosinophils % 4.3 Basophils % 0.8 Nucleated RBC % 0 Hypochromia 2+ Platelet Estimate Decreased Polychromasia 1+ Poikilocytosis 2+ Anisocytosis 2+ Microcytosis 2+ Macrocytosis 0 Ovalocytes 1+ Schistocytes 1+ Retic Count Sodium 139 Potassium 4.4 Chloride 111 H Carbon Dioxide 24 Anion Gap 4 L BUN 8 Creatinine 0.5 L Est GFR (CKD-EPI)AfAm 134.52 Est GFR (CKD-EPI)NonAf 116.07 Random Glucose 84 Calcium 7.8 L Ferritin 2.2 L Total Bilirubin 0.3 AST 16 ALT 15 Alkaline Phosphatase 112 Total Protein 5.8 L Albumin 3.3 L Urine Color Urine Appearance Urine pH Ur Specific [place] Urine Protein Urine Glucose (UA) Urine Ketones Urine Blood Urine Nitrite Urine Bilirubin Urine Urobilinogen Ur Leukocyte Esterase Urine HCG, Qual Blood Type B POSITIVE Antibody Screen Negative Crossmatch See Detail 01/29/19 01/29/19 13:30 13:30 WBC RBC Hgb Hct MCV MCH MCHC RDW Plt Count MPV Absolute Neuts (auto) Neutrophils % Lymphocytes % Monocytes % Eosinophils % Basophils % Nucleated RBC % Hypochromia Platelet Estimate Polychromasia Poikilocytosis Anisocytosis Microcytosis Macrocytosis Ovalocytes Schistocytes Retic Count 1.10 D Sodium Potassium Chloride Carbon Dioxide Anion Gap BUN Creatinine Est GFR (CKD-EPI)AfAm Est GFR (CKD-EPI)NonAf Random Glucose Calcium Ferritin Total Bilirubin AST ALT Alkaline Phosphatase Total Protein Albumin Urine Color Yellow Urine Appearance Clear Urine pH 6.0 Ur Specific [place] 1.022 Urine Protein Negative Urine Glucose (UA) Negative Urine Ketones Negative Urine Blood Negative Urine Nitrite Negative Urine Bilirubin Negative Urine Urobilinogen 0.2 Ur Leukocyte Esterase Negative Urine HCG, Qual Negative Blood Type Antibody Screen Crossmatch ASSESSMENT/PLAN: symptomatic anemia BT x 2 repeat cbc in am stool for occult hematology consult as pt is allergic to iron. monitor vitals continue home meds. Pt takes ferrous sulphate pill every day with Benadryl. we will start it after hematology consult fluid: PO allowed electrolyte: repeat in am nutrition: regular diet gi prophylaxis: on omeprazole and zantack home meds dvt pro: scd dispo: obs Visit type - Emergency Visit Emergency Visit: Yes ED Registration Date: 01/29/19 Care time: The patient presented to the Emergency Department on the above date and was hospitalized for further evaluation of their emergent condition. - New Patient This patient is new to me today: Yes Date on this admission: 01/30/19 - Critical Care Critical Care patient: No
[2019-01-29] MEDS ORDERED: PATIENT'S OWN MEDICATION (NON-FORMULARY) (Cholecalciferol (Vitamin D3) [Vitamin D3] 50,000 PO SCH (17:00)
[2019-01-29] MEDS ORDERED: FAMOTIDINE 20 MG/50 ML IVPB 20 MG/50 ML MG IVPB ONE ×2 (17:36→22:30)
--- NOTE | 2019-01-29 19:53 | PN ---
Teaching Attending Note Name of Resident: Kenny Washington ATTENDING PHYSICIAN STATEMENT I saw and evaluated the patient. I reviewed the resident's note and discussed the case with the resident. I agree with the resident's findings and plan as documented. SUBJECTIVE: Patient is comfortable with no acute distress, feels tired and as per patient , she gets transfusion 2x per year since had a gastric bypass and developed allergic to iron supplement. OBJECTIVE: Vital Signs Temperature 98.6 F 01/29/19 17:48 Pulse Rate 84 01/29/19 17:48 Respiratory Rate 16 01/29/19 17:48 Blood Pressure 124/76 01/29/19 17:48 O2 Sat by Pulse Oximetry (%) 99 01/29/19 17:48 GENERAL: The patient is awake, alert, and fully oriented, in no acute distress. HEAD: Normal with no signs of trauma. EYES: PERRL, extraocular movements intact, sclera anicteric, conjunctiva clear. positive for pallor ENT: Ears normal, oropharynx clear without exudates, moist mucous membranes. NECK: Trachea midline, full range of motion, supple. LUNGS: Breath sounds equal, clear to auscultation bilaterally, no wheezes, no crackles, no accessory muscle use. HEART: Regular rate and rhythm, S1, S2 without murmur, rub or gallop. ABDOMEN: Soft, nontender, nondistended, normoactive bowel sounds, no guarding, no rebound, no hepatosplenomegaly, no masses. EXTREMITIES: 2+ pulses, warm, well-perfused, no edema. NEUROLOGICAL: Cranial nerves II through XII grossly intact. Normal speech, gait not observed. PSYCH: Normal mood, normal affect. SKIN: Warm, dry, normal turgor, no rashes or lesions noted CBCD WBC 4.5 K/mm3 (4.0-10.0) 01/29/19 13:30 RBC 3.40 M/mm3 (3.60-5.2) L 01/29/19 13:30 Hgb 5.9 GM/dL (10.7-15.3) L* 01/29/19 13:30 Hct 21.7 % (32.4-45.2) L D 01/29/19 13:30 MCV 63.6 fl (80-96) L 01/29/19 13:30 MCHC 27.2 g/dl (32.0-36.0) L 01/29/19 13:30 RDW 29.0 % (11.6-15.6) H 01/29/19 13:30 Plt Count 148 K/MM3 (134-434) D 01/29/19 13:30 MPV 8.6 fl (7.5-11.1) 01/29/19 13:30 CMP Sodium 139 mmol/L (136-145) 01/29/19 13:30 Potassium 4.4 mmol/L (3.5-5.1) 01/29/19 13:30 Chloride 111 mmol/L (98-107) H 01/29/19 13:30 Carbon Dioxide 24 mmol/L (21-32) 01/29/19 13:30 Anion Gap 4 MMOL/L (8-16) L 01/29/19 13:30 BUN 8 mg/dL (7-18) 01/29/19 13:30 Creatinine 0.5 mg/dL (0.55-1.3) L 01/29/19 13:30 Random Glucose 84 mg/dL (74-106) 01/29/19 13:30 Calcium 7.8 mg/dL (8.5-10.1) L 01/29/19 13:30 Total Bilirubin 0.3 mg/dL (0.2-1) 01/29/19 13:30 AST 16 U/L (15-37) 01/29/19 13:30 ALT 15 U/L (13-61) 01/29/19 13:30 Alkaline Phosphatase 112 U/L (45-117) 01/29/19 13:30 Total Protein 5.8 g/dl (6.4-8.2) L 01/29/19 13:30 Albumin 3.3 g/dl (3.4-5.0) L 01/29/19 13:30 Current Medications Generic Name Dose Route Start Last Admin Trade Name Freq PRN Reason Stop Dose Admin Acetaminophen 650 mg 01/29/19 16:53 Tylenol - PO Q6H PRN FEVER Calcium Carbonate/Cholecalciferol 1 tab 01/30/19 10:00 Os-Sam 500+D - PO DAILY TANNER Diphenhydramine HCl 25 mg 01/29/19 22:00 Benadryl - PO BID TANNER Gabapentin 300 mg 01/29/19 22:00 Neurontin - PO TID [facility] Lidocaine HCl 20 ml 01/29/19 22:00 Xylocaine 2% Viscous Oral - PO TID [facility] Lidocaine/Aluminum/Magnesium/Simeth 5 ml 01/29/19 16:53 Magic Mouthwash *Sjr Formula* - MM Q6HPO PRN ORAL PAIN/MOUTH [place]ORES Multivitamins/Minerals/Vitamin C 1 tab 01/30/19 10:00 Tab-A-Vit - PO DAILY [facility] Non-Formulary Medication 50,000 unit 01/29/19 17:00 Cholecalciferol (Vitamin D3) [Vitamin D3] PO WEEKLY [facility] Non-Formulary Medication 100 gm 01/29/19 22:00 Diclofenac Sodium [Voltaren] TP BID [facility] Ondansetron HCl 8 mg 01/29/19 16:53 Zofran Odt - SL DAILY PRN NAUSEA Pantoprazole Sodium 20 mg 01/30/19 10:00 Protonix - PO DAILY [facility] Ranitidine HCl 150 mg 01/29/19 22:00 Zantac - PO BID [facility] Sertraline HCl 50 mg 01/30/19 10:00 Zoloft - PO DAILY [facility] Simethicone 160 mg 01/30/19 10:00 Mylicon - PO DAILY [facility] Home Medications Medication Instructions Recorded Calcium Carbonate/Vitamin D3 1 each PO DAILY 12/18/15 [Calcium 600 + Vit D 400 Softgl] Cholecalciferol (Vitamin D3) 50,000 unit PO WEEKLY 12/18/15 [Vitamin D3] Diclofenac Sodium [Voltaren] 100 gm TP BID 12/18/15 Gabapentin 300 mg PO TID 12/18/15 Loratadine [Claritin -] 10 mg PO DAILY 12/18/15 Multivitamins [Multivit ([facility] 1 tab PO DAILY 12/18/15 Formulary)] Ranitidine [Zantac -] 150 mg PO BID 12/18/15 Simethicone [Phazyme] 180 mg PO DAILY 12/18/15 Acetaminophen [Tylenol .Regular 650 mg PO Q6H PRN #0 tablet 04/21/16 Strength -] Mag Hydrox/Alh/Smc/Dpha/Lido 5 ml MM Q6HPO #1 bottle 04/21/16 [Magic Mouthwash *Sjr Formula* -] Lidocaine 2% Viscous Oral 20 ml PO TID 11/24/16 [Xylocaine 2% Viscous Oral -] Ondansetron [Zofran *Odt*] 8 mg SL DAILY 11/24/16 Sertraline HCl [Zoloft] 50 mg PO DAILY 11/24/16 Omeprazole 20 mg PO DAILY #30 capsule. 11/28/16 Diphenhydramine HCl 25 mg PO TID 02/02/18 Doxepin HCl [Sinequan -] 25 mg PO HS 02/02/18 Ferrous Sulfate [Iron] 325 mg PO BID 01/29/19 ASSESSMENT AND PLAN: Patient is a 48 y/o male with pmhx of iron deficiency anemia, transfusion dependent was sent in by her pcp for blood transfusion. # Acute symptomatic anemia: presented for blood transfusion x2 , given solumedrol and iv benadryl since patient reacts to blood transfusion. as per patient she gets transfused 2x per year, hematology consult appreciated and as pt is allergic to iron. continue to monitor the vitals continue home meds. Pt takes ferrous SO4 pill every day with Benadryl. dvt pro: scd
[2019-01-29] MEDS ORDERED: KETOROLAC TROMETHAMINE 30 MG/1 ML VIAL IM ONE (20:27)
[2019-01-29] MEDS ORDERED: CYCLOBENZAPRINE HCL 5 MG TABLET PO ONE (21:31)
[2019-01-29] MEDS ORDERED: PATIENT'S OWN MEDICATION (NON-FORMULARY) (Diclofenac Sodium [Voltaren] 100 GM) TP SCH (22:00)
[2019-01-29] MEDS: GABAPENTIN 300 MG CAPSULE (FP) PO SCH (22:27)
[2019-01-29] MEDS: diphenhydrAMINE HCL 25 MG CAPSULE (FP) PO SCH (22:27)
[2019-01-29] MEDS: RANITIDINE HCL 150 MG TABLET (FP) PO SCH (22:27)
[2019-01-29] MEDS: LIDOCAINE VISCOUS 2% ORAL/TOP 20 ML UNIT-DOSE CUP PO SCH (23:16)
[2019-01-30 01:42] VITALS: BMI 24.5
[2019-01-30] MEDS ORDERED: MAG HYDROX/AL HYDROX/SIMETH -MYLANTA- ORAL SUSPENSION PO ONE (02:39)
[2019-01-30] MEDS ORDERED: PT OWN MED DRAWER 7, Y5N ONE ×2 (02:53→13:28)
[2019-01-30] MEDS: LIDOCAINE VISCOUS 2% ORAL/TOP 20 ML UNIT-DOSE CUP PO SCH ×2 (06:03→13:29)
[2019-01-30] MEDS: GABAPENTIN 300 MG CAPSULE (FP) PO SCH ×2 (06:03→13:29)
[2019-01-30 07:23] LABS: HEMATOCRIT 24.6 % (32.4-45.2); HEMOGLOBIN 7.4 GM/dL (10.7-15.3); MCH 20.7 pg (25.7-33.7); MCHC 30.1 g/dl (32.0-36.0); MEAN CELL VOLUME 68.8 fl (80-96); MEAN PLT VOLUME 8.3 fl (7.5-11.1); PLATELET COUNT 114 K/MM3 (134-434); RBC 3.57 M/mm3 (3.60-5.2); RDW 34.7 % (11.6-15.6); WHITE BLOOD COUNT 5.8 K/mm3 (4.0-10.0)
[2019-01-30 07:50] LABS: CALCIUM 7.8 mg/dL (8.5-10.1); CREATININE 0.5 mg/dL (0.55-1.3); MAGNESIUM 2.4 mg/dL (1.8-2.4); PHOSPHOROUS 2.1 mg/dL (2.5-4.9)
[2019-01-30] MEDS ORDERED: SODIUM PHOSPHATE - 15 MM in DEXTROSE 5%-WATER - 250 ML IVPB ONE (08:12)
[2019-01-30] MEDS: RANITIDINE HCL 150 MG TABLET (FP) PO SCH (09:35)
[2019-01-30] MEDS: diphenhydrAMINE HCL 25 MG CAPSULE (FP) PO SCH (09:35)
[2019-01-30] MEDS ORDERED: PANTOPRAZOLE 20 MG TABLET (FP) PO SCH (10:00)
[2019-01-30] MEDS ORDERED: SERTRALINE HCL 50 MG TABLET (FP) PO SCH (10:00)
[2019-01-30] MEDS ORDERED: CALCIUM 500MG/VIT-D 200 UNITS COMBO TABLET (FP) PO SCH (10:00)
[2019-01-30] MEDS ORDERED: MULTIVITAMINS (DAILY MVI) TABLET (FP) PO SCH (10:00)
[2019-01-30] MEDS ORDERED: SIMETHICONE 80 MG TAB.CHEW (FP) PO SCH (10:00)
[2019-01-30] MEDS ORDERED: CYCLOBENZAPRINE HCL 5 MG TABLET PO SCH (12:15)
--- NOTE | 2019-01-30 12:19 | DS ---
Physical Exam: SUBJECTIVE: Patient seen and examined at bedside. s/p transfusion w/o issues. no complaints. wants to go home. Denies fever, chills, n/v/d, cp, sob OBJECTIVE: Vital Signs Period Temp Pulse Resp BP Sys/Bruno Pulse Ox Last 24 Hr 98.2 F-99.1 F 72-92 16-22 110-135/71-86 97-100 PHYSICAL EXAM GENERAL: Awake, alert, and fully oriented, in no acute distress. HEAD: Normal with no signs of trauma. EYES conjunctiva pale . No lid lag. EARS, NOSE, THROAT: tongue moist NECK: Normal range of motion, supple without lymphadenopathy, JVD, or masses. LUNGS: Breath sounds equal, clear to auscultation bilaterally. No wheezes, and no crackles. No accessory muscle use. HEART: Regular rate and rhythm, normal S1 and S2 without murmur, rub or gallop. ABDOMEN: Soft, nontender, not distended, normoactive bowel sounds, no guarding, no rebound, no masses. multiple surgical scars MUSCULOSKELETAL: Normal range of motion at all joints. No bony deformities or tenderness. UPPER EXTREMITIES: 2+ pulses, warm, well-perfused. No cyanosis. No clubbing. No peripheral edema. LOWER EXTREMITIES: 2+ pulses, warm, well-perfused. No calf tenderness. No peripheral edema. NEUROLOGICAL: Cranial nerves II-XII intact. Normal speech. decreased sensation and strength (4/5) LUE and LLE compared to R ext (5/5) (chronic) PSYCHIATRIC: Cooperative. Good eye contact. Appropriate mood and affect. SKIN: Warm, dry, LABS Laboratory Results - last 24 hr 01/29/19 01/29/19 01/29/19 13:30 13:30 13:30 WBC 4.5 RBC 3.40 L Hgb 5.9 L* Hct 21.7 L D MCV 63.6 L MCH 17.3 L D MCHC 27.2 L RDW 29.0 H Plt Count 148 D MPV 8.6 Absolute Neuts (auto) 2.3 Neutrophils % 52.1 Lymphocytes % 38.0 Monocytes % 4.8 Eosinophils % 4.3 Basophils % 0.8 Nucleated RBC % 0 Hypochromia 2+ Platelet Estimate Decreased Polychromasia 1+ Poikilocytosis 2+ Anisocytosis 2+ Microcytosis 2+ Macrocytosis 0 Ovalocytes 1+ Schistocytes 1+ Retic Count Sodium 139 Potassium 4.4 Chloride 111 H Carbon Dioxide 24 Anion Gap 4 L BUN 8 Creatinine 0.5 L Est GFR (CKD-EPI)AfAm 134.52 Est GFR (CKD-EPI)NonAf 116.07 Random Glucose 84 Calcium 7.8 L Phosphorus Magnesium Ferritin 2.2 L Total Bilirubin 0.3 AST 16 ALT 15 Alkaline Phosphatase 112 Total Protein 5.8 L Albumin 3.3 L Vitamin B12 Urine Color Urine Appearance Urine pH Ur Specific [place] Urine Protein Urine Glucose (UA) Urine Ketones Urine Blood Urine Nitrite Urine Bilirubin Urine Urobilinogen Ur Leukocyte Esterase Urine HCG, Qual Blood Type B POSITIVE Antibody Screen Negative Crossmatch See Detail 01/29/19 01/29/19 01/30/19 13:30 13:30 06:30 WBC 5.8 RBC 3.57 L Hgb 7.4 L Hct 24.6 L MCV 68.8 L MCH 20.7 L D MCHC 30.1 L RDW 34.7 H Plt Count 114 L D MPV 8.3 Absolute Neuts (auto) Neutrophils % Lymphocytes % Monocytes % Eosinophils % Basophils % Nucleated RBC % Hypochromia Platelet Estimate Polychromasia Poikilocytosis Anisocytosis Microcytosis Macrocytosis Ovalocytes Schistocytes Retic Count 1.10 D Sodium Potassium Chloride Carbon Dioxide Anion Gap BUN Creatinine Est GFR (CKD-EPI)AfAm Est GFR (CKD-EPI)NonAf Random Glucose Calcium Phosphorus Magnesium Ferritin Total Bilirubin AST ALT Alkaline Phosphatase Total Protein Albumin Vitamin B12 Urine Color Yellow Urine Appearance Clear Urine pH 6.0 Ur Specific [place] 1.022 Urine Protein Negative Urine Glucose (UA) Negative Urine Ketones Negative Urine Blood Negative Urine Nitrite Negative Urine Bilirubin Negative Urine Urobilinogen 0.2 Ur Leukocyte Esterase Negative Urine HCG, Qual Negative Blood Type Antibody Screen Crossmatch 01/30/19 01/30/19 06:30 06:30 WBC RBC Hgb Hct MCV MCH MCHC RDW Plt Count MPV Absolute Neuts (auto) Neutrophils % Lymphocytes % Monocytes % Eosinophils % Basophils % Nucleated RBC % Hypochromia Platelet Estimate Polychromasia Poikilocytosis Anisocytosis Microcytosis Macrocytosis Ovalocytes Schistocytes Retic Count Sodium 140 Potassium 4.0 Chloride 113 H Carbon Dioxide 22 Anion Gap 5 L BUN 14 Creatinine 0.5 L Est GFR (CKD-EPI)AfAm 134.52 Est GFR (CKD-EPI)NonAf 116.07 Random Glucose 139 H Calcium 7.8 L Phosphorus 2.1 L Magnesium 2.4 Ferritin Total Bilirubin AST ALT Alkaline Phosphatase Total Protein Albumin Vitamin B12 284 Urine Color Urine Appearance Urine pH Ur Specific [place] Urine Protein Urine Glucose (UA) Urine Ketones Urine Blood Urine Nitrite Urine Bilirubin Urine Urobilinogen Ur Leukocyte Esterase Urine HCG, Qual Blood Type Antibody Screen Crossmatch HOSPITAL COURSE: Date of Admission:01/29/19 HISTORY OF PRESENT ILLNESS: 48 y/o female with pmh of iron deficiency anemia nd transfusion dependent was sent in by her pcp for blood transfusion. Pt states that her pcp asked her a month ago for transfusion but se delayed it till today. Pt states tat she is getting BT from last 1 years and it was started after her gastric bypass surgery. States she get BT almost twice a year but this time she delayed it. Reports she is allergic to BT and iron and she gets hives every rime and she gets steroid and Benadryl every time when she gets transfusion. Also report generalized weakness, sob on walking. Denies chest pain. Denies blood in stool, urine. States her menses are regular. Pt aso states tht she had endoscopy and colonoscopy in 2017 which were normal and was advised to get capsule endoscopy which she is delaying it since 2017 and was suppose to get it in [facility]. Pt denies taking NSAID. PAST SURGICAL HISTORY: Gastric Bypass' C section x 4 Tubal Ligation Cholecystectomy Date of Discharge: 01/30/19 48 y/o F with pmh of iron deficiency anemia and transfusion dependent was sent in by her pcp for blood transfusion and w/ Hgb of 5.9 on admission generalized weakness, sob on walking resolved s/p tranfusion Symptomatic anemia: presented for blood transfusion x2 , given solumedrol and iv benadryl since patient reacts to blood transfusion. Now resolved per patient she gets transfused 2x per year hematology consulted as pt is allergic to iron. pt is now s/p 2 units and now Hgb 7.4 which is around her baseline of 7-9 no signs of bleeding noted. labs were unremarkable for any signs of infx. bili lfts nl, UA neg feritin 2.2 b12 nl retic count nl pt given flexeril 5mg tid for 2 days prn for chronic muscle spasms pt is stable and ready for dc and will f/u w/ her PCP and roving or yarn color checker Minutes to complete discharge: 38 Discharge Summary Reason For Visit: ANEMIA Current Active Problems Anemia (Acute) Condition: Stable - Instructions Diet, Activity, Other Instructions: you came in for a routine blood transfusion bec your blood count was low. we gave you blood and you improved please resume your home meds take flexeril 5mg as needed for muscle spasms please follow up with your pcp within 1 week please follow up with your roving or yarn color checker within 1 week Referrals: Rosa Gallegos MD [Staff Physician] - 1 Week Disposition: HOME - Home Medications Comprehensive Discharge Medication List: Ambulatory Orders Calcium Carbonate/Vitamin D3 [Calcium 600 + Vit D 400 Softgl] 1 each PO DAILY Cholecalciferol (Vitamin D3) [Vitamin D3] 50,000 unit PO WEEKLY 12/18/15 Diclofenac Sodium [Voltaren] 100 gm TP BID 12/18/15 Gabapentin 300 mg PO TID 12/18/15 Ranitidine [Zantac -] 150 mg PO BID 12/18/15 Simethicone [Phazyme] 180 mg PO DAILY 12/18/15 Sertraline HCl [Zoloft] 50 mg PO DAILY 11/24/16 Diphenhydramine HCl 25 mg PO TID 02/02/18 Doxepin HCl [Sinequan -] 25 mg PO HS 02/02/18 Ferrous Sulfate [Iron] 325 mg PO BID 01/29/19 Cyclobenzaprine HCl 5 mg PO TID PRN 2 Days #5 tablet 01/30/19 This patient is new to me today: Yes Date on this admission: 01/30/19 Emergency Visit: Yes ED Registration Date: 01/29/19 Care time: The patient presented to the Emergency Department on the above date and was hospitalized for further evaluation of their emergent condition. Critical Care patient: No - Discharge Referral Referred to [facility] Med [facility].C[facility] No
[2019-01-30 14:16] VITALS: BP 148/78; PULSE 85; TEMP 99
--- NOTE | 2019-01-30 18:04 | PN ---
Teaching Attending Note Name of Resident: Ishan Oleary ATTENDING PHYSICIAN STATEMENT I saw and evaluated the patient. I reviewed the resident's note and discussed the case with the resident. I agree with the resident's findings and plan as documented. SUBJECTIVE: Patient is comfortable with no acute distress. OBJECTIVE: Vital Signs Temperature 99 F 01/30/19 14:15 Pulse Rate 85 01/30/19 14:15 Respiratory Rate 18 01/30/19 14:15 Blood Pressure 148/78 01/30/19 14:15 O2 Sat by Pulse Oximetry (%) 98 01/30/19 09:00 GENERAL: The patient is awake, alert, and fully oriented, in no acute distress. HEAD: Normal with no signs of trauma. EYES: PERRL, extraocular movements intact, sclera anicteric, conjunctiva clear. no pallor today ENT: Ears normal, oropharynx clear without exudates, moist mucous membranes. NECK: Trachea midline, full range of motion, supple. LUNGS: Breath sounds equal, clear to auscultation bilaterally, no wheezes, no crackles, no accessory muscle use. HEART: Regular rate and rhythm, S1, S2 without murmur, rub or gallop. ABDOMEN: Soft, nontender, nondistended, normoactive bowel sounds, no guarding, no rebound, no hepatosplenomegaly, no masses. EXTREMITIES: 2+ pulses, warm, well-perfused, no edema. NEUROLOGICAL: Cranial nerves II through XII grossly intact. Normal speech, gait not observed. PSYCH: Normal mood, normal affect. SKIN: Warm, dry, normal turgor, no rashes or lesions noted CBCD WBC 5.8 K/mm3 (4.0-10.0) 01/30/19 06:30 RBC 3.57 M/mm3 (3.60-5.2) L 01/30/19 06:30 Hgb 7.4 GM/dL (10.7-15.3) L 01/30/19 06:30 Hct 24.6 % (32.4-45.2) L 01/30/19 06:30 MCV 68.8 fl (80-96) L 01/30/19 06:30 MCHC 30.1 g/dl (32.0-36.0) L 01/30/19 06:30 RDW 34.7 % (11.6-15.6) H 01/30/19 06:30 Plt Count 114 K/MM3 (134-434) L D 01/30/19 06:30 MPV 8.3 fl (7.5-11.1) 01/30/19 06:30 CMP Sodium 140 mmol/L (136-145) 01/30/19 06:30 Potassium 4.0 mmol/L (3.5-5.1) 01/30/19 06:30 Chloride 113 mmol/L (98-107) H 01/30/19 06:30 Carbon Dioxide 22 mmol/L (21-32) 01/30/19 06:30 Anion Gap 5 MMOL/L (8-16) L 01/30/19 06:30 BUN 14 mg/dL (7-18) 01/30/19 06:30 Creatinine 0.5 mg/dL (0.55-1.3) L 01/30/19 06:30 Random Glucose 139 mg/dL (74-106) H 01/30/19 06:30 Calcium 7.8 mg/dL (8.5-10.1) L 01/30/19 06:30 Total Bilirubin 0.3 mg/dL (0.2-1) 01/29/19 13:30 AST 16 U/L (15-37) 01/29/19 13:30 ALT 15 U/L (13-61) 01/29/19 13:30 Alkaline Phosphatase 112 U/L (45-117) 01/29/19 13:30 Total Protein 5.8 g/dl (6.4-8.2) L 01/29/19 13:30 Albumin 3.3 g/dl (3.4-5.0) L 01/29/19 13:30 Current Medications Generic Name Dose Route Start Last Admin Trade Name Freq PRN Reason Stop Dose Admin Non-Formulary Medication 50,000 unit 01/29/19 17:00 Cholecalciferol (Vitamin D3) [Vitamin D3] PO WEEKLY TANNER Home Medications Medication Instructions Recorded RX: Calcium Carbonate/Vitamin D3 1 each PO DAILY 12/18/15 [Calcium 600 + Vit D 400 Softgl] RX: Cholecalciferol (Vitamin D3) 50,000 unit PO WEEKLY 12/18/15 [Vitamin D3] RX: Diclofenac Sodium [Voltaren] 100 gm TP BID 12/18/15 RX: Gabapentin 300 mg PO TID 12/18/15 RX: Ranitidine [Zantac -] 150 mg PO BID 12/18/15 RX: Simethicone [Phazyme] 180 mg PO DAILY 12/18/15 RX: Sertraline HCl [Zoloft] 50 mg PO DAILY 11/24/16 RX: Diphenhydramine HCl 25 mg PO TID 02/02/18 RX: Doxepin HCl [Sinequan -] 25 mg PO HS 02/02/18 RX: Ferrous Sulfate [Iron] 325 mg PO BID 01/29/19 RX: Cyclobenzaprine HCl 5 mg PO TID PRN 2 Days #5 tablet 01/30/19 ASSESSMENT AND PLAN: Patient is a 48 y/o male with pmhx of iron deficiency anemia, transfusion dependent was sent in by her pcp for blood transfusion. # Acute symptomatic anemia:improved s/p blood transfusion x2 , s/p solumedrol and iv benadryl since patient reacts to blood transfusion. as per patient she gets transfused 2x per year, hematology consult appreciated and as pt is allergic to iron. continue to monitor the vitals continue home meds. Pt takes ferrous SO4 pill every day with Benadryl. dvt pro: scd
== END 2019-01-30 15:30 | disposition home or self-care (01) ==
LOC: JER 12:38 → JERBED 15:56 → J5S 18:17
PROVIDERS: ADMIT Internal Medicine; ATTEND Internal Medicine
PROC: 30233N1 Transfusion of Nonautologous Red Blood Cells into Peripheral Vein, Percutaneous Approach (ICD-10-PCS; principal; 2019-01-29)
PROC: 3E0333Z Introduction of Anti-inflammatory into Peripheral Vein, Percutaneous Approach (ICD-10-PCS; 2019-01-29)
PROC: 3E033NZ Introduction of Analgesics, Hypnotics, Sedatives into Peripheral Vein, Percutaneous Approach (ICD-10-PCS; 2019-01-29)
DX: D50.8 Other iron deficiency anemias (principal); Z88.6 Allergy status to analgesic agent
CPT/HCPCS: 36415; 36430; 80048; 80053; 81003; 82607; 82728; 83540; 83550; 83735; 84100; 84703; 85025; 85027; 85044; 86922; 93005; 93010; 96365; 96366; 96367; 96375; 99285-25; G0378; J0131; Q0162

== ENCOUNTER 2019-11-11 14:47 | Observation (INO) | payer OTHER ==
--- NOTE | 2019-11-11 14:55 | PDOC ---
Rapid Medical Evaluation Time Seen by Provider: 11/11/19 14:51 Medical Evaluation: Allergies Allergy/AdvReac Type Severity Reaction Status Date / Time iron dextran complex Allergy Intermediate Verified 01/29/19 12:40 iron sucrose complex Allergy Intermediate Hives Verified 01/29/19 12:40 [From Mai] tape Allergy Intermediate Rash Uncoded 01/29/19 12:40 11/11/19 14:51 CC: weakness- sent by PMD for Hgb-5.2; denies active bleeding PE: HR- 115. Pallor noted. Orders: labs, urine, T&S, PRBC's Patient will proceed to ED for further evaluation. 11/11/19 14:54 Discharge Disposition - Diagnosis Anemia - Referrals - Patient Instructions - Post Discharge Activity
--- NOTE | 2019-11-11 15:28 | PDOC ---
History of Present Illness - General Chief Complaint: Weakness Stated Complaint: SENT BY PCP/BLOOD TRANSFUSION Time Seen by Provider: 11/11/19 14:51 - History of Present Illness Initial Comments: 11/11/19 16:01 49 yo F PMH gastric sleeve surgery with severe anemia requiring around 2 transfusions per year, receiving weekly IV iron and daily PO iron, allergic reaction to iron and blood products on Benadryl and Solu-medrol prior to transfusions, hx rectal bleeding, hx vaginal bleeding on Depo-Provera (LMP 11/04/2019), PUD, cholecystectomy, 4X C-sections, C-spine surgery, presenting with anemia. Gets outpatient Hgb monthly, today Hgb is 5.2. Denies vaginal bleeding, rectal bleeding, melena. Endorses chronic SOB and fatigue. Past History - Past Medical History Allergies/Adverse Reactions: Allergies Allergy/AdvReac Type Severity Reaction Status Date / Time iron dextran complex Allergy Intermediate Verified 11/11/19 14:54 iron sucrose complex Allergy Intermediate Hives Verified 11/11/19 14:54 [From Venofer] tape Allergy Intermediate Rash Uncoded 11/11/19 14:54 Home Medications: Ambulatory Orders Calcium Carbonate/Vitamin D3 [Calcium 600 + Vit D 400 Softgl] 1 each PO DAILY 12/18/15 Cholecalciferol (Vitamin D3) [Vitamin D3] 50,000 unit PO WEEKLY 12/18/15 Diclofenac Sodium [Voltaren] 100 gm TP BID 12/18/15 Gabapentin 300 mg PO TID 12/18/15 Ranitidine [Zantac -] 150 mg PO BID 12/18/15 Simethicone [Phazyme] 180 mg PO DAILY 12/18/15 Sertraline HCl [Zoloft] 50 mg PO DAILY 11/24/16 Diphenhydramine HCl 25 mg PO TID 02/02/18 Doxepin HCl [Sinequan -] 25 mg PO HS 02/02/18 Ferrous Sulfate [Iron] 325 mg PO BID 01/29/19 Anemia: Yes (BLOOD TRANSFUSIONS) Asthma: No Cancer: No Cardiac Disorders: No CVA: No COPD: No CHF: No DVT: No Dementia: No Diabetes: No Dialysis: No GI Disorders: Yes (ULCER) Disorders: No HTN: No Hypercholesterolemia: No Liver Disease: No Seizures: No Thyroid Disease: No - Surgical History Abdominal Surgery: Yes (GASTRIC BYPASS, ULCER) Appendectomy: No Cardiac Surgery: No Cholecystectomy: Yes Gastric Stapling: No (BYPASS) Lung Surgery: No Neurologic Surgery: Yes (C SPINE.) Orthopedic Surgery: No - Psycho Social/Smoking Cessation Hx Smoking Status: No Smoking History: Never smoked Have you smoked in the past 12 months: No Hx Alcohol Use: No Drug/Substance Use Hx: No Substance Use Type: None Hx Substance Use Treatment: No Review of Systems - Review of Systems Comments:: 11/11/19 17:17 GENERAL/CONSTITUTIONAL: endorses fatigue. Denies fever, chills, diaphoresis, generalized weakness, malaise, loss of appetite, weight change HEAD, EYES, EARS, NOSE AND THROAT: denies rhinorrhea, nasal congestion, throat pain, throat swelling, difficulty swallowing, mouth swelling, ear pain, eye pain, visual changes NEUROLOGIC: denies headache, focal weakness or paresthesias, dizziness, unsteady gait, seizure, mental status changes, bladder or bowel incontinence CARDIOVASCULAR: denies chest pain, syncope, palpitations, irregular heart rate, lightheadedness, peripheral edema RESPIRATORY: endorses chronic SOB and HUIZAR. Denies cough, orthopnea, wheezing, s tridor, hemoptysis GASTROINTESTINAL: denies abdominal pain, abdominal distension, nausea, vomiting, diarrhea, constipation, melena, hematochezia GENITOURINARY: denies dysuria, frequency, urgency, hesitancy, hematuria, flank pain, genital pain MUSCULOSKELETAL: denies myalgia, arthralgia, joint swelling, back pain, neck pain SKIN: denies rash, itching, pallor HEMATOLOGIC/IMMUNOLOGIC: denies easy bleeding, easy bruising, lymphadenopathy, frequent infections ENDOCRINE: denies unexplained weight gain, unexplained weight loss, heat intolerance, cold intolerance PSYCHIATRIC: denies anxiety, depression, suicidal or homicidal ideation, hallucinations *Physical Exam - Vital Signs Last Vital Signs Temp Pulse Resp BP Pulse Ox 98.2 F 105 H 18 135/86 100 11/11/19 14:51 11/11/19 14:51 11/11/19 14:51 11/11/19 14:51 11/11/19 14:51 - Physical Exam 11/11/19 17:17 Gen: well-developed, well-nourished, NAD, pale Neuro: AAOX4, CN II-XII intact, FTN intact, EOMI, PERRLA, 5/5 strength, SILT HEENT: atraumatic, normocephalic Neck: trachea midline, supple CV: regular rate, regular rhythm, no murmurs, rubs, or gallops Pulm: CTA b/l, no wheezing Abd: soft, non-distended, non-tender MSK: full ROM, intact pulses Extr: no edema, no deformities Skin: pale, warm, dry ED Treatment Course - LABORATORY CBC & Chemistry Diagram: 11/11/19 15:45 11/11/19 15:45 Medical Decision Making - Medical Decision Making 11/11/19 16:04 Concern for anemia. - CBC, CMP - EKG, trop - coags - T+S - Urine - likely blood transfusions of 2 units pRBCs 11/11/19 16:01 EKG normal sinus at 85 bpm, no ischemic changes, NJ 146, QRS 76, QTc 426. 11/11/19 16:57 Hgb 5.7. Will transfuse two units, admit. Discharge - Discharge Information Problems reviewed: Yes Clinical Impression/Diagnosis: Anemia Condition: Stable - Admission Yes - Follow up/Referral Referrals: Sher Gaitan MD [Primary Care Provider] - - Patient Discharge Instructions - Post Discharge Activity
--- NOTE | 2019-11-11 16:12 | PDOC ---
Attending Attestation - Resident Resident Name: Leon Ram - ED Attending Attestation I have performed the following: I have examined & evaluated the patient, The case was reviewed & discussed with the resident, I agree w/resident's findings & plan - HPI HPI: 11/11/19 16:09 49 yo F PMH gastric sleeve surgery with severe anemia requiring around 2 transfusions per year, receiving weekly IV iron and daily PO iron, allergic reaction to iron and blood products on Benadryl and Solu-medrol prior to transfusions, hx rectal bleed, hx vaginal bleeding on Depo-Provera (LMP 2019), cholecystectomy, 4X C-sections, presenting with anemia. Gets outpatient Hgb monthly, today Hgb is 5.2. Denies vaginal bleeding, rectal bleeding, melena. Endorses chronic SOB and fatigue. - Physicial Exam PE: 11/11/19 16:09 Agree with the resident's HPI and PE as documented in the electronic medical record. NAD, well appearing, EOMI, PERRL, pale conjunctiva, anicteric; neck supple. lungs clear, tachycardic, no murmurs, abdomen soft nontender. no rebound, guarding. Back nontender. DENG x4, no focal neuro deficits. No peripheral edema. Pale color for ethnicity, WWP. - Medical Decision Making 11/11/19 16:10 Vital Signs Temp Pulse Resp BP Pulse Ox 98.2 F 105 H 18 135/86 100 11/11/19 14:51 11/11/19 14:51 11/11/19 14:51 11/11/19 14:51 11/11/19 14:51 Vital signs notable for tachycardia, normotensive, no respiratory distress, afebrile nontoxic appearing tachy likely from symptomatic anemia. Patient comes in from outpatient testing with acute on chronic anemia. Type and screen, coags, basic labs and CBC sent EKG with sinus tachycardia, no ischemic findings. Patient has a history of allergic reaction/urticaria and blood transfusion reaction which she is able to tolerate but only after steroids and Benadryl. We will administer IV Solu-Medrol and Benadryl 25 mg prior to PRBC transfusion This is consistent with her history of anemia secondary to hx rectal bleed, hx vaginal bleeding on Depo-Provera (LMP 11/04/2019), h/h today 5.7/21.8 cw iron defiency/microcytic anemia. remainder of labs and lytes unrmarkable transfuse with pre treatment, close monitoring for reactions/anaphylaxis, immune response/TACO/TRALI admitting to Dr Fisher service, hospitalist. 11/11/19 17:58 11/11/19 17:59 11/11/19 18:02 Heart Score/ECG Review #1 ECG reviewed & interpreted by me at: 16:00 General ECG Interpretation: Sinus Rhythm, Normal Rate, Normal Intervals 11/11/19 16:11 EKG normal sinus rhythm 85 bpm, no interval abnormalities, narrow QRS, ST and T wave segments and morphology normal. Nonspecific T wave abnormalities
[2019-11-11 16:33] LABS: MCHC 26.1 g/dl (32.0-36.0); MEAN CELL VOLUME 62.9 fl (80-96); MEAN PLT VOLUME 8.4 fl (7.5-11.1); PLATELET COUNT 805 K/MM3 (134-434); RBC 3.47 M/mm3 (3.60-5.2); RDW 35.6 % (11.6-15.6); WHITE BLOOD COUNT 5.3 K/mm3 (4.0-10.0)
[2019-11-11 16:43] LABS: INR 0.94 (0.83-1.09); PROTHROMBIN TIME (PATIENT) 11.1 SEC (9.7-13.0)
[2019-11-11 16:44] LABS: MCH 16.4 pg (25.7-33.7)
[2019-11-11 16:47] LABS: ACTIVATED PTT 20.2 SECONDS (25.2-36.5)
[2019-11-11 16:50] LABS: ADD RBC MORPHOLOGY YES
[2019-11-11 16:54] LABS: RETICULOCYTES 1.48 % (0.5-1.5)
[2019-11-11 16:55] LABS: HEMATOCRIT 21.8 % (32.4-45.2); HEMOGLOBIN 5.7 GM/dL (10.7-15.3)
[2019-11-11] MEDS ORDERED: methylPREDNISolone NA SUCC 125 MG/2 ML VIAL IVPB ONE (16:59)
[2019-11-11 17:05] LABS: BILIRUBIN,DIRECT 0.1 mg/dL (0.0-0.2); BILIRUBIN,TOTAL 0.3 mg/dL (0.2-1); BLOOD UREA NITROGEN 11.2 mg/dL (7-18); CALCIUM 7.5 mg/dL (8.5-10.1); CREATININE 0.5 mg/dL (0.55-1.3); POTASSIUM 4.7 mmol/L (3.5-5.1); TOT PROT 5.8 g/dl (6.4-8.2)
[2019-11-11 17:11] LABS: PH,URINE 5.5 (5.0-8.0); URINE APPEARANCE CLEAR; URINE BILIRUBIN NEGATIVE (NEGATIVE); URINE COLOR YELLOW; URINE GLUCOSE (UA) NEGATIVE (NEGATIVE); URINE KETONE NEGATIVE (NEGATIVE); URINE LEUK ESTERASE NEGATIVE (NEGATIVE); URINE NITRITE NEGATIVE (NEGATIVE); URINE PROTEIN NEGATIVE (NEGATIVE); URINE UROBILINOGEN 0.2 mg/dL (0.2-1.0)
[2019-11-11] MEDS ORDERED: methylPREDNISolone NA SUCC 125 MG/2 ML VIAL ONE (17:42)
--- NOTE | 2019-11-11 17:58 | PN ---
Teaching Attending Note Name of Resident: Jose R Warren ATTENDING PHYSICIAN STATEMENT I saw and evaluated the patient. I reviewed the resident's note and discussed the case with the resident. I agree with the resident's findings and plan as documented. SUBJECTIVE: Patient is a 49yo female with pmhx of iron deficiency anemia nd transfusion dependent was sent in by her pcp for blood transfusion and was found to have hemoglobin of 5.2 in the office. Patient gets Steroid and benadryl with infusions since she reacts to the transfusion and she used to follow up with . Denies using any Nsaids. OBJECTIVE: Vital Signs Temperature 98.2 F 11/11/19 14:51 Pulse Rate 105 H 11/11/19 14:51 Respiratory Rate 18 11/11/19 14:51 Blood Pressure 135/86 11/11/19 14:51 O2 Sat by Pulse Oximetry (%) 100 11/11/19 14:51 GENERAL: The patient is awake, alert, and fully oriented, in no acute distress. HEAD: Normal with no signs of trauma. EYES: PERRL, extraocular movements intact, sclera anicteric, pallor ENT: Ears normal, oropharynx clear without exudates, moist mucous membranes. NECK: Trachea midline, full range of motion, supple. LUNGS: Breath sounds equal, clear to auscultation bilaterally, no wheezes, no crackles, no accessory muscle use. HEART: Regular rate and rhythm, S1, S2 without murmur, rub or gallop. ABDOMEN: Soft, nontender, nondistended, normoactive bowel sounds, no guarding, no rebound, no hepatosplenomegaly, no masses. EXTREMITIES: 2+ pulses, warm, well-perfused, no edema. NEUROLOGICAL: Cranial nerves II through XII grossly intact. Normal speech, gait not observed. PSYCH: Normal mood, normal affect. SKIN: Warm, dry, normal turgor, no rashes or lesions noted CBCD WBC 5.3 K/mm3 (4.0-10.0) 11/11/19 15:45 RBC 3.47 M/mm3 (3.60-5.2) L 11/11/19 15:45 Hgb 5.7 GM/dL (10.7-15.3) L* 11/11/19 15:45 Hct 21.8 % (32.4-45.2) L 11/11/19 15:45 MCV 62.9 fl (80-96) L 11/11/19 15:45 MCHC 26.1 g/dl (32.0-36.0) L 11/11/19 15:45 RDW 35.6 % (11.6-15.6) H 11/11/19 15:45 Plt Count 805 K/MM3 (134-434) H D 11/11/19 15:45 MPV 8.4 fl (7.5-11.1) 11/11/19 15:45 CMP Sodium 139 mmol/L (136-145) 11/11/19 15:45 Potassium 4.7 mmol/L (3.5-5.1) 11/11/19 15:45 Chloride 112 mmol/L (98-107) H 11/11/19 15:45 Carbon Dioxide 20 mmol/L (21-32) L 11/11/19 15:45 Anion Gap 7 MMOL/L (8-16) L 11/11/19 15:45 BUN 11.2 mg/dL (7-18) 11/11/19 15:45 Creatinine 0.5 mg/dL (0.55-1.3) L 11/11/19 15:45 Random Glucose 72 mg/dL (74-106) L 11/11/19 15:45 Calcium 7.5 mg/dL (8.5-10.1) L 11/11/19 15:45 Total Bilirubin 0.3 mg/dL (0.2-1) 11/11/19 15:45 AST 27 U/L (15-37) 11/11/19 15:45 ALT 19 U/L (13-61) 11/11/19 15:45 Alkaline Phosphatase 108 U/L (45-117) 11/11/19 15:45 Total Protein 5.8 g/dl (6.4-8.2) L 11/11/19 15:45 Albumin 3.0 g/dl (3.4-5.0) L 11/11/19 15:45 Home Medications Medication Instructions Recorded Calcium Carbonate/Vitamin D3 1 each PO DAILY 12/18/15 [Calcium 600 + Vit D 400 Softgl] Cholecalciferol (Vitamin D3) 50,000 unit PO WEEKLY 12/18/15 [Vitamin D3] Diclofenac Sodium [Voltaren] 100 gm TP BID 12/18/15 Gabapentin 300 mg PO TID 12/18/15 Ranitidine [Zantac -] 150 mg PO BID 12/18/15 Simethicone [Phazyme] 180 mg PO DAILY 12/18/15 Sertraline HCl [Zoloft] 50 mg PO DAILY 11/24/16 Diphenhydramine HCl 25 mg PO TID 02/02/18 Doxepin HCl [Sinequan -] 25 mg PO HS 02/02/18 Ferrous Sulfate [Iron] 325 mg PO BID 01/29/19 ASSESSMENT AND PLAN: Patient is a 48 y/o male with pmhx of iron deficiency anemia, transfusion dependent was sent in by her pcp for blood transfusion. # Acute symptomatic anemia over chronic will transfuse 2 units for now, will give IV solumedrol and iv benadryl since patient reacts to blood transfusion. as per patient she gets transfused 2x per year, hematology consult appreciated and as pt is allergic to iron, she will need to be on banadryl and steroid as well. continue home meds, no Diclofenac. Pt takes ferrous SO4 pill every day with Benadryl. #Hx of depression: continue homes meds dvt pro: scd
[2019-11-11 18:11] LABS: ANISOCYTOSIS 3+
[2019-11-11 18:12] LABS: MACROCYTOSIS 1+; OVALOCYTE 1+; PLATELET ESTIMATE MOD INCREASED; TEAR DROP CELLS FEW
--- NOTE | 2019-11-11 18:21 | HP ---
CHIEF COMPLAINT: presenting from PCP office for transfusion for anemia PCP: Dr. Sher Gaitan HISTORY OF PRESENT ILLNESS: Maura Denise is a 49 year old female with a past medical history of GERD, gastric sleeve surgery, chronic iron deficiency anemia requiring iron transfusions and daily oral iron presenting from her PCP office due to anemia requiring transfusion. Patient states that she is at her baseline level of health with no recent change in any of her symptoms. She endorses mild generalized weakness, mild dizziness, lightheadedness, back pain, tingling of her legs, mild headache which she states has not changed in an extended period of time. She denies chest pain, shortness of breath, abdominal pain, nausea, vomiting, constipation, diarrhea, focal weakness, numbness, recent bleeding episodes, hematochezia, hematuria, hemoptosis, hematemesis, dysuria, frequency, urgency. Denies easy bleeding. She denies recent sick contacts or recent travel. 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 Lee because of proximity. She endorses that her last iron infusion was 2 weeks prior and that she is inconsistent with her infusions, occasionally going several weeks between infusions. ER course was notable for: (1) HR 105 (2) Hgb 5.7 (baseline 7-8), MCV 62.9, iron 11, TIBC 485, iron sat 2, ferittin 1.3 (3) stool occult negative (4) Given Benadryl and Solu-medrol, started blood transfusions Recent Travel: denies PAST MEDICAL HISTORY: as above PAST SURGICAL HISTORY: cholecystectomy, 4x C-sections, C-spine surgery Social History: Smoking: denies Alcohol: denies Drugs: denies Allergies iron dextran complex Allergy (Intermediate, Verified 11/11/19 14:54) iron sucrose complex [From Venofer] Allergy (Intermediate, Verified 11/11/19 14: 54) Hives GETS IV STEROIDS PRIOR TO INFUSION tape Allergy (Intermediate, Uncoded 11/11/19 14:54) Rash ALL HOME MEDICATIONS: Home Medications Medication Instructions Recorded Calcium Carbonate/Vitamin D3 1 each PO DAILY 12/18/15 [Calcium 600 + Vit D 400 Softgl] Cholecalciferol (Vitamin D3) 50,000 unit PO WEEKLY 12/18/15 [Vitamin D3] Diclofenac Sodium [Voltaren] 100 gm TP BID 12/18/15 Gabapentin 300 mg PO TID 12/18/15 Ranitidine [Zantac -] 150 mg PO BID 12/18/15 Simethicone [Phazyme] 180 mg PO DAILY 12/18/15 Sertraline HCl [Zoloft] 50 mg PO DAILY 11/24/16 Diphenhydramine HCl 25 mg PO TID 02/02/18 Doxepin HCl [Sinequan -] 25 mg PO HS 02/02/18 Ferrous Sulfate [Iron] 325 mg PO BID 01/29/19 REVIEW OF SYSTEMS CONSTITUTIONAL: generalized weakness Absent: fever, chills, diaphoresis, malaise, HEENT: Absent: rhinorrhea, nasal congestion, throat pain, throat swelling, difficulty swallowing, visual changes CARDIOVASCULAR: lightheadedness Absent: chest pain, syncope, palpitations, irregular heart rate, =peripheral edema RESPIRATORY: Absent: cough, shortness of breath, dyspnea with exertion, orthopnea, wheezing GASTROINTESTINAL: Absent: abdominal pain, abdominal distension, nausea, vomiting, diarrhea, constipation, melena, hematochezia GENITOURINARY: Absent: dysuria, frequency, urgency, hesitancy, hematuria, flank pain MUSCULOSKELETAL: back pain Absent: arthralgia, joint swelling, neck pain SKIN: Absent: rash, itching, pallor HEMATOLOGIC/IMMUNOLOGIC: Absent: easy bleeding, easy bruising, lymphadenopathy, frequent infections ENDOCRINE: Absent: unexplained weight gain, unexplained weight loss, heat intolerance, cold intolerance NEUROLOGIC: headache, dizziness Absent: focal weakness or paresthesias, unsteady gait, seizure, mental status changes, bladder or bowel incontinence PSYCHIATRIC: Absent: anxiety, depression, suicidal or homicidal ideation, hallucinations PHYSICAL EXAMINATION Vital Signs - 24 hr 11/11/19 14:51 Temperature 98.2 F Pulse Rate 105 H Respiratory 18 Rate Blood Pressure 135/86 O2 Sat by Pulse 100 Oximetry (%) GENERAL: Awake, alert, and fully oriented, in no acute distress. HEAD: Normal with no signs of trauma. EYES: Pupils equal, round and reactive to light, extraocular movements intact, conjunctiva clear. EARS, NOSE, THROAT: Oropharynx clear without exudates. Moist mucous membranes. Beefy tongue appearance. LUNGS: Breath sounds equal, clear to auscultation bilaterally. No wheezes, and no crackles. No accessory muscle use. HEART: Regular rate and rhythm, normal S1 and S2 without murmur, rub. ABDOMEN: Soft, nontender, not distended, normoactive bowel sounds, no guarding, no rebound, no masses. MUSCULOSKELETAL: Normal range of motion at all joints. No bony deformities. Back tenderness to palpation in the lower thoracic and lumbar region. UPPER EXTREMITIES: 2+ pulses, warm, well-perfused. No cyanosis. No clubbing. No peripheral edema. LOWER EXTREMITIES: 2+ pulses, warm, well-perfused. No calf tenderness. No peripheral edema. NEUROLOGICAL: Cranial nerves II-XII intact. 5/5 muscle strength upper and lower extremities bilaterally. Sensation intact to gross touch throughout. PSYCHIATRIC: Cooperative. Good eye contact. Appropriate mood and affect. SKIN: Warm, dry, normal turgor, slightly delayed capillary refill. Laboratory Results - last 24 hr 11/11/19 11/11/19 11/11/19 15:45 15:45 15:45 WBC 5.3 RBC 3.47 L Hgb 5.7 L* Hct 21.8 L MCV 62.9 L MCH 16.4 L D MCHC 26.1 L RDW 35.6 H Plt Count 805 H D MPV 8.4 Absolute Neuts (auto) 2.5 Total Counted 100 Neutrophils % No Result Required. Neutrophils % (Manual) 56.0 Lymphocytes % No Result Required. Lymphocytes % (Manual) 36.0 Monocytes % (Manual) 4 Eosinophils % (Manual) 3.0 Nucleated RBC % 0 Differential Comment Man diff performed Hypochromia 3+ Platelet Estimate Mod increased Platelet Comment Slide scanned. Polychromasia 1+ Poikilocytosis 2+ Anisocytosis 3+ Microcytosis 2+ Macrocytosis 1+ Tear Drop Cells Few Ovalocytes 1+ [place] Cells 1+ Fragmented RBCs 1+ Retic Count 1.48 D PT with INR 11.10 INR 0.94 PTT (Actin FS) 20.2 L Sodium 139 Potassium 4.7 Chloride 112 H Carbon Dioxide 20 L Anion Gap 7 L BUN 11.2 Creatinine 0.5 L Est GFR (CKD-EPI)AfAm 133.58 Est GFR (CKD-EPI)NonAf 115.25 Random Glucose 72 L Calcium 7.5 L Iron 11 L TIBC 485 H Iron Saturation 2 L Unsaturated IBC 474 H Ferritin 1.3 L Total Bilirubin 0.3 Direct Bilirubin 0.1 AST 27 ALT 19 Alkaline Phosphatase 108 LD Total 251 H Total Protein 5.8 L Albumin 3.0 L Urine Color Urine Appearance Urine pH Ur Specific [place] Urine Protein Urine Glucose (UA) Urine Ketones Urine Blood Urine Nitrite Urine Bilirubin Urine Urobilinogen Ur Leukocyte Esterase Urine HCG, Qual Stool Occult Blood Blood Type Antibody Screen Crossmatch 11/11/19 11/11/19 11/11/19 15:45 15:45 16:20 WBC RBC Hgb Hct MCV MCH MCHC RDW Plt Count MPV Absolute Neuts (auto) Total Counted Neutrophils % Neutrophils % (Manual) Lymphocytes % Lymphocytes % (Manual) Monocytes % (Manual) Eosinophils % (Manual) Nucleated RBC % Differential Comment Hypochromia Platelet Estimate Platelet Comment Polychromasia Poikilocytosis Anisocytosis Microcytosis Macrocytosis Tear Drop Cells Ovalocytes [place] Cells Fragmented RBCs Retic Count PT with INR INR PTT (Actin FS) Sodium Potassium Chloride Carbon Dioxide Anion Gap BUN Creatinine Est GFR (CKD-EPI)AfAm Est GFR (CKD-EPI)NonAf Random Glucose Calcium Iron Cancelled TIBC Cancelled Iron Saturation Cancelled Unsaturated IBC Cancelled Ferritin Total Bilirubin Direct Bilirubin AST ALT Alkaline Phosphatase LD Total Total Protein Albumin Urine Color Urine Appearance Urine pH Ur Specific [place] Urine Protein Urine Glucose (UA) Urine Ketones Urine Blood Urine Nitrite Urine Bilirubin Urine Urobilinogen Ur Leukocyte Esterase Urine HCG, Qual Negative Stool Occult Blood Blood Type B POSITIVE Antibody Screen Negative Crossmatch See Detail 11/11/19 11/11/19 16:20 16:20 WBC RBC Hgb Hct MCV MCH MCHC RDW Plt Count MPV Absolute Neuts (auto) Total Counted Neutrophils % Neutrophils % (Manual) Lymphocytes % Lymphocytes % (Manual) Monocytes % (Manual) Eosinophils % (Manual) Nucleated RBC % Differential Comment Hypochromia Platelet Estimate Platelet Comment Polychromasia Poikilocytosis Anisocytosis Microcytosis Macrocytosis Tear Drop Cells Ovalocytes [place] Cells Fragmented RBCs Retic Count PT with INR INR PTT (Actin FS) Sodium Potassium Chloride Carbon Dioxide Anion Gap BUN Creatinine Est GFR (CKD-EPI)AfAm Est GFR (CKD-EPI)NonAf Random Glucose Calcium Iron TIBC Iron Saturation Unsaturated IBC Ferritin Total Bilirubin Direct Bilirubin AST ALT Alkaline Phosphatase LD Total Total Protein Albumin Urine Color Yellow Urine Appearance Clear Urine pH 5.5 Ur Specific [place] 1.013 Urine Protein Negative Urine Glucose (UA) Negative Urine Ketones Negative Urine Blood Negative Urine Nitrite Negative Urine Bilirubin Negative Urine Urobilinogen 0.2 Ur Leukocyte Esterase Negative Urine HCG, Qual Stool Occult Blood Negative Blood Type Antibody Screen Crossmatch ASSESSMENT/PLAN: Maura Denise is a 49 year old female with a past medical history of GERD, gastric sleeve surgery, chronic iron deficiency anemia requiring iron transfusions and daily oral iron admitted for anemia requiring transfusion. Iron Deficiency Anemia - iron studies and Hgb as above - likely in setting of inconsistent iron infusions and poor follow up - will transfuse 2 units of PRBCs, monitor H/H - premedicated with solumedrol and benadryl - closely monitor while receiving transfusions due to history of iron related adverse reactions - hematology consulted - will need iron infusions and close outpatient hematology follow up Hypocalcemia - corrected Ca 8.3 - on calcium supplementation - will likely need additional supplementation after transfusion due to citrate binding with calcium - will need outpatient workup with her PCP Chronic Nerve Pain - on home doxepin and gabapentin DVT PPx - SCDs in setting of anemia FEN - receiving transfusions - continue to monitor electrolytes and replete as necessary, hypocalcemia noted as above - Regular diet Dispo - observation on Med-surg Family Medical History Family Hx Cancer: Mother (breast and thyroid CA), Father (prostate CA) Visit type - Emergency Visit Emergency Visit: Yes Care time: The patient presented to the Emergency Department on the above date and was hospitalized for further evaluation of their emergent condition. - New Patient This patient is new to me today: Yes Date on this admission: 11/11/19 - Critical Care Critical Care patient: No
[2019-11-11] MEDS ORDERED: PATIENT'S OWN MEDICATION (NON-FORMULARY) (Ranitidine [Zantac -] 150 MG) PO SCH (22:00)
[2019-11-11] MEDS ORDERED: DOXEPIN HCL 25 MG CAPSULE PO SCH (22:00)
[2019-11-11] MEDS ORDERED: PATIENT'S OWN MEDICATION (NON-FORMULARY) (Ferrous Sulfate [Iron] 325 MG) PO SCH (22:00)
[2019-11-11] MEDS: FERROUS SO4 325 MG TABLET (FP) PO SCH (22:09)
[2019-11-11] MEDS: GABAPENTIN 300 MG CAPSULE PO SCH (22:09)
[2019-11-11] MEDS: diphenhydrAMINE HCL 25 MG CAPSULE (FP) PO SCH (22:09)
[2019-11-11] MEDS: FAMOTIDINE 20 MG TABLET PO SCH (22:09)
[2019-11-12 02:41] VITALS: BMI 24.2
[2019-11-12] MEDS: GABAPENTIN 300 MG CAPSULE PO SCH (05:24)
[2019-11-12] MEDS: diphenhydrAMINE HCL 25 MG CAPSULE (FP) PO SCH (05:24)
--- NOTE | 2019-11-12 08:44 | EKG ---
Test Reason : Blood Pressure : / mmHG Vent. Rate : 085 BPM Atrial Rate : 085 BPM P-R Int : 146 ms QRS Dur : 076 ms QT Int : 358 ms P-R-T Axes : 050 057 023 degrees QTc Int : 426 ms NORMAL SINUS RHYTHM NORMAL ECG WHEN COMPARED WITH ECG OF 29-JAN-2019 13:37, NO SIGNIFICANT CHANGE WAS FOUND Confirmed by MD MANUEL, CLAYTON ([id number]) on 11/12/2019 8:44:37 AM Referred By: Confirmed By:CLAYTON JACKSON MD
[2019-11-12 09:25] LABS: BASO % 0.2 % (0-2.0); EOS % 0.1 % (0-4.5); HEMATOCRIT 27.5 % (32.4-45.2); HEMOGLOBIN 8.3 GM/dL (10.7-15.3); LYMPH % 30.6 % (8-40); MCH 20.5 pg (25.7-33.7); MCHC 30.2 g/dl (32.0-36.0); MEAN PLT VOLUME 8.3 fl (7.5-11.1); MONO % 4.9 % (3.8-10.2); NEUT % 64.2 % (42.8-82.8); PLATELET COUNT 610 K/MM3 (134-434); RBC 4.04 M/mm3 (3.60-5.2); RDW 38.1 % (11.6-15.6); WHITE BLOOD COUNT 6.5 K/mm3 (4.0-10.0)
[2019-11-12 09:51] LABS: INR 0.98 (0.83-1.09); PROTHROMBIN TIME (PATIENT) 11.6 SEC (9.7-13.0)
[2019-11-12 09:54] LABS: ACTIVATED PTT 31.3 SECONDS (25.2-36.5)
[2019-11-12 09:59] LABS: ALBUMIN 3.1 g/dl (3.4-5.0); BILIRUBIN,TOTAL 0.8 mg/dL (0.2-1); CALCIUM 8.3 mg/dL (8.5-10.1); CREATININE 0.5 mg/dL (0.55-1.3); MAGNESIUM 2.4 mg/dL (1.8-2.4); PHOSPHOROUS 2.4 mg/dL (2.5-4.9); POTASSIUM 4.9 mmol/L (3.5-5.1); TOT PROT 5.8 g/dl (6.4-8.2)
[2019-11-12] MEDS ORDERED: SIMETHICONE 180 MG PO SCH (10:00)
[2019-11-12] MEDS ORDERED: CALCIUM 500MG/VIT-D 200 UNITS COMBO TABLET (FP) PO SCH (10:00)
[2019-11-12] MEDS ORDERED: SIMETHICONE 80 MG TAB.CHEW (FP) PO SCH (10:00)
[2019-11-12] MEDS ORDERED: SERTRALINE HCL 50 MG TABLET (FP) PO SCH (10:00)
[2019-11-12] MEDS ORDERED: PT OWN MED DRAWER 7, Y5N ONE ×2 (10:06→10:13)
[2019-11-12] MEDS: FERROUS SO4 325 MG TABLET (FP) PO SCH (10:16)
[2019-11-12] MEDS: FAMOTIDINE 20 MG TABLET PO SCH (10:16)
[2019-11-12 13:56] VITALS: BP 118/82; PULSE 90; TEMP 98
--- NOTE | 2019-11-12 14:36 | DS ---
Physical Exam: SUBJECTIVE: Patient seen and examined at the bedside. Patient stated that she felt better and had less weakness. She tolerated the blood transfusion well. Endorsed a mild headache and chronic back and leg pain. Denied cp, palpitations, sob, abd pain, n/v/c/d, dizziness, lightheadedness, fever, chills. OBJECTIVE: Vital Signs Period Temp Pulse Resp BP Sys/Bruno Pulse Ox Last 24 Hr 97.3 F-99.8 F 75-105 15-18 108-135/57-93 96-100 PHYSICAL EXAM GENERAL: Awake, alert, and fully oriented, in no acute distress. HEAD: Normal with no signs of trauma. EYES: Pupils equal, round and reactive to light, extraocular movements intact, conjunctiva clear. EARS, NOSE, THROAT: Oropharynx clear without exudates. Moist mucous membranes. Beefy tongue appearance. LUNGS: Breath sounds equal, clear to auscultation bilaterally. No wheezes, and no crackles. No accessory muscle use. HEART: Regular rate and rhythm, normal S1 and S2 without murmur, rub. ABDOMEN: Soft, nontender, not distended, normoactive bowel sounds, no guarding, no rebound, no masses. MUSCULOSKELETAL: Normal range of motion at all joints. No bony deformities. Back tenderness to palpation in the lower thoracic and lumbar region. EXTREMITIES: 2+ pulses, warm, well-perfused. No calf tenderness. No peripheral edema. PSYCHIATRIC: Cooperative. Good eye contact. Appropriate mood and affect. SKIN: Warm, dry, normal turgor, normal capillary refill. LABS Laboratory Results - last 24 hr 11/11/19 11/11/19 11/11/19 15:45 15:45 15:45 WBC 5.3 RBC 3.47 L Hgb 5.7 L* Hct 21.8 L MCV 62.9 L MCH 16.4 L D MCHC 26.1 L RDW 35.6 H Plt Count 805 H D MPV 8.4 Absolute Neuts (auto) 2.5 Total Counted 100 Neutrophils % No Result Required. Neutrophils % (Manual) 56.0 Lymphocytes % No Result Required. Lymphocytes % (Manual) 36.0 Monocytes % Monocytes % (Manual) 4 Eosinophils % Eosinophils % (Manual) 3.0 Basophils % Nucleated RBC % 0 Differential Comment Man diff performed Hypochromia 3+ Platelet Estimate Mod increased Platelet Comment Slide scanned. Polychromasia 1+ Poikilocytosis 2+ Anisocytosis 3+ Microcytosis 2+ Macrocytosis 1+ Tear Drop Cells Few Ovalocytes 1+ [place] Cells 1+ Fragmented RBCs 1+ Retic Count 1.48 D PT with INR 11.10 INR 0.94 PTT (Actin FS) 20.2 L Sodium 139 Potassium 4.7 Chloride 112 H Carbon Dioxide 20 L Anion Gap 7 L BUN 11.2 Creatinine 0.5 L Est GFR (CKD-EPI)AfAm 133.58 Est GFR (CKD-EPI)NonAf 115.25 Random Glucose 72 L Calcium 7.5 L Phosphorus Magnesium Iron 11 L TIBC 485 H Iron Saturation 2 L Unsaturated IBC 474 H Ferritin 1.3 L Total Bilirubin 0.3 Direct Bilirubin 0.1 AST 27 ALT 19 Alkaline Phosphatase 108 LD Total 251 H Total Protein 5.8 L Albumin 3.0 L Urine Color Urine Appearance Urine pH Ur Specific [place] Urine Protein Urine Glucose (UA) Urine Ketones Urine Blood Urine Nitrite Urine Bilirubin Urine Urobilinogen Ur Leukocyte Esterase Urine HCG, Qual Stool Occult Blood Blood Type Antibody Screen Crossmatch 11/11/19 11/11/19 11/11/19 15:45 15:45 16:20 WBC RBC Hgb Hct MCV MCH MCHC RDW Plt Count MPV Absolute Neuts (auto) Total Counted Neutrophils % Neutrophils % (Manual) Lymphocytes % Lymphocytes % (Manual) Monocytes % Monocytes % (Manual) Eosinophils % Eosinophils % (Manual) Basophils % Nucleated RBC % Differential Comment Hypochromia Platelet Estimate Platelet Comment Polychromasia Poikilocytosis Anisocytosis Microcytosis Macrocytosis Tear Drop Cells Ovalocytes [place] Cells Fragmented RBCs Retic Count PT with INR INR PTT (Actin FS) Sodium Potassium Chloride Carbon Dioxide Anion Gap BUN Creatinine Est GFR (CKD-EPI)AfAm Est GFR (CKD-EPI)NonAf Random Glucose Calcium Phosphorus Magnesium Iron Cancelled TIBC Cancelled Iron Saturation Cancelled Unsaturated IBC Cancelled Ferritin Total Bilirubin Direct Bilirubin AST ALT Alkaline Phosphatase LD Total Total Protein Albumin Urine Color Urine Appearance Urine pH Ur Specific [place] Urine Protein Urine Glucose (UA) Urine Ketones Urine Blood Urine Nitrite Urine Bilirubin Urine Urobilinogen Ur Leukocyte Esterase Urine HCG, Qual Negative Stool Occult Blood Blood Type B POSITIVE Antibody Screen Negative Crossmatch See Detail 11/11/19 11/11/19 11/12/19 16:20 16:20 08:10 WBC 6.5 RBC 4.04 Hgb 8.3 L Hct 27.5 L D MCV 68.0 L MCH 20.5 L D MCHC 30.2 L RDW 38.1 H Plt Count 610 H D MPV 8.3 Absolute Neuts (auto) 4.2 Total Counted Neutrophils % 64.2 D Neutrophils % (Manual) Lymphocytes % 30.6 Lymphocytes % (Manual) Monocytes % 4.9 Monocytes % (Manual) Eosinophils % 0.1 D Eosinophils % (Manual) Basophils % 0.2 Nucleated RBC % 0 Differential Comment Hypochromia Platelet Estimate Platelet Comment Polychromasia Poikilocytosis Anisocytosis Microcytosis Macrocytosis Tear Drop Cells Ovalocytes [place] Cells Fragmented RBCs Retic Count PT with INR INR PTT (Actin FS) Sodium Potassium Chloride Carbon Dioxide Anion Gap BUN Creatinine Est GFR (CKD-EPI)AfAm Est GFR (CKD-EPI)NonAf Random Glucose Calcium Phosphorus Magnesium Iron TIBC Iron Saturation Unsaturated IBC Ferritin Total Bilirubin Direct Bilirubin AST ALT Alkaline Phosphatase LD Total Total Protein Albumin Urine Color Yellow Urine Appearance Clear Urine pH 5.5 Ur Specific [place] 1.013 Urine Protein Negative Urine Glucose (UA) Negative Urine Ketones Negative Urine Blood Negative Urine Nitrite Negative Urine Bilirubin Negative Urine Urobilinogen 0.2 Ur Leukocyte Esterase Negative Urine HCG, Qual Stool Occult Blood Negative Blood Type Antibody Screen Crossmatch 11/12/19 11/12/19 08:10 08:10 WBC RBC Hgb Hct MCV MCH MCHC RDW Plt Count MPV Absolute Neuts (auto) Total Counted Neutrophils % Neutrophils % (Manual) Lymphocytes % Lymphocytes % (Manual) Monocytes % Monocytes % (Manual) Eosinophils % Eosinophils % (Manual) Basophils % Nucleated RBC % Differential Comment Hypochromia Platelet Estimate Platelet Comment Polychromasia Poikilocytosis Anisocytosis Microcytosis Macrocytosis Tear Drop Cells Ovalocytes [place] Cells Fragmented RBCs Retic Count PT with INR 11.60 INR 0.98 PTT (Actin FS) 31.3 Sodium 138 Potassium 4.9 Chloride 110 H Carbon Dioxide 24 Anion Gap 4 L BUN 14.0 Creatinine 0.5 L Est GFR (CKD-EPI)AfAm 133.58 Est GFR (CKD-EPI)NonAf 115.25 Random Glucose 77 Calcium 8.3 L Phosphorus 2.4 L Magnesium 2.4 Iron TIBC Iron Saturation Unsaturated IBC Ferritin Total Bilirubin 0.8 Direct Bilirubin AST 13 L ALT 17 Alkaline Phosphatase 105 LD Total Total Protein 5.8 L Albumin 3.1 L Urine Color Urine Appearance Urine pH Ur Specific [place] Urine Protein Urine Glucose (UA) Urine Ketones Urine Blood Urine Nitrite Urine Bilirubin Urine Urobilinogen Ur Leukocyte Esterase Urine HCG, Qual Stool Occult Blood Blood Type Antibody Screen Crossmatch HOSPITAL COURSE: Maura Denise is a 49 year old female with a past medical history of GERD, gastric sleeve surgery, chronic iron deficiency anemia requiring iron transfusions and daily oral iron admitted for anemia requiring transfusion. Was noted to have low Hgb and low iron on this admission. Was given 2 units of PRBCs and had increase in her Hgb. Patient was premedicated with solumedrol and benadryl prior to the transfusion and tolerated the transfusion well. Patient was advised to follow with hematology outpatient and to have good close outpatient follow up. She was advised to stop using Voltaren gel. Patient was advised to follow up with her PCP, hematology, and gastroenterology for possible scope. Was advised to have follow up labwork in 1 week. Patient was spoken to regarding the plan and agreed with it. Patient was discharged in stable medical condition. Date of Admission:11/11/19 Date of Discharge: 11/12/19 Minutes to complete discharge: 35 Discharge Summary Problems reviewed: Yes Reason For Visit: ANEMIA Condition: Improved - Instructions Diet, Activity, Other Instructions: You were admitted for anemia that required a blood transfusion. You were given 2 units of red blood cells and your counts improved. You are advised to follow up with your database security administrator. MEDICATIONS Stop taking Voltaren gel. Continue to take your other medications as prescribed. REFERRALS Please follow up with your primary care physician, Dr. Sher Gaitan, within 1 week. Please follow up with the database security administrator, Dr. Rosa Gallegos, within 1 week. Please follow up with the software engineer backend, Dr. Maicol Cosme, within 3 weeks for possible colonoscopy and endoscopy. SPECIAL INSTRUCTIONS Please follow up with all of your physicians. Have repeat bloodwork examining your blood counts in 1 week. If you have any further symptoms of increasing headaches, dizziness, lightheadedness, fevers, chest pain, shortness of breath, or any other general feelings of unwellness, please call 911 or go to your nearest emergency room. Referrals: Blu Cosme DO [Staff Physician] - 3 Weeks Rosa Gallegos MD [Staff Physician] - 1 Week Sher Gaitan MD [Primary Care Provider] - 1 Week Disposition: HOME - Home Medications Comprehensive Discharge Medication List: Ambulatory Orders Calcium Carbonate/Vitamin D3 [Calcium 600 + Vit D 400 Softgl] 1 each PO DAILY 12/18/15 Cholecalciferol (Vitamin D3) [Vitamin D3] 50,000 unit PO WEEKLY 12/18/15 Gabapentin 300 mg PO TID 12/18/15 Ranitidine [Zantac -] 150 mg PO BID 12/18/15 Simethicone [Phazyme] 180 mg PO DAILY 12/18/15 Sertraline HCl [Zoloft] 50 mg PO DAILY 11/24/16 Diphenhydramine HCl 25 mg PO TID 02/02/18 Doxepin HCl [Sinequan -] 25 mg PO HS 02/02/18 Ferrous Sulfate [Iron] 325 mg PO BID 01/29/19 Problem List - Problems (1) Anemia Code(s): D64.9 - ANEMIA, UNSPECIFIED (2) Peptic ulcer disease Code(s): K27.9 - PEPTIC ULC, SITE UNSP, UNSP AC OR CHR, W/O HEMOR OR PERF (3) Symptomatic anemia Code(s): D64.9 - ANEMIA, UNSPECIFIED This patient is new to me today: No Emergency Visit: Yes ED Registration Date: 11/11/19 Care time: The patient presented to the Emergency Department on the above date and was hospitalized for further evaluation of their emergent condition. Critical Care patient: No - Discharge Referral Referred to [facility] Yes Physician Referral: Maicol Cosme DO (GI)
--- NOTE | 2019-11-12 19:19 | PN ---
Teaching Attending Note Name of Resident: Jose R Warren ATTENDING PHYSICIAN STATEMENT I saw and evaluated the patient. I reviewed the resident's note and discussed the case with the resident. I agree with the resident's findings and plan as documented. SUBJECTIVE: seen around 11 am no fever or chills. No N/ v . no SOB or CP . she felt stronger and better OBJECTIVE: NAD Cv : RRr Lungs: CTAB Ext : No edema or erythema ASSESSMENT AND PLAN: Patient is a 49 y/o lady with pmhx of iron deficiency anemia, GERD and gastric sleeve sx who presented fro trasnfusion 1- worsening chronic iron def anemia . s/p 2 units of RBC. with good response - dc home to follow up with tim . she would like to follow up with Rosa Mckinley. - further w/u to be done as out pt . ? due sleeve sx or chronic blood loss. - cont po irion - iron transfusion protocol as out pt dc home
== END 2019-11-12 13:58 | disposition home health service (06) ==
LOC: JER 14:47 → UNDOADMOB 17:12 → INTOOBSV 17:12 → JERBED 17:12 → J5S 21:29
PROVIDERS: ADMIT Internal Medicine; ATTEND Internal Medicine
PROC: 30233N1 Transfusion of Nonautologous Red Blood Cells into Peripheral Vein, Percutaneous Approach (ICD-10-PCS; principal; 2019-11-11)
PROC: 3E0333Z Introduction of Anti-inflammatory into Peripheral Vein, Percutaneous Approach (ICD-10-PCS; 2019-11-11)
PROC: 3E033GC Introduction of Other Therapeutic Substance into Peripheral Vein, Percutaneous Approach (ICD-10-PCS; 2019-11-11)
DX: D50.9 Iron deficiency anemia, unspecified (principal); Z98.84 Bariatric surgery status; Z91.048 Other nonmedicinal substance allergy status; E83.51 Hypocalcemia; M79.2 Neuralgia and neuritis, unspecified
CPT/HCPCS: 36415; 36430; 36511; 80053; 81003; 82248; 82272; 82728; 83010; 83540; 83550; 83615; 83735; 84100; 84703; 85025; 85044; 85610; 85730; 86850; 86900; 86901; 86922; 93005; 93010; 96374; 96375; 99285-25; G0378; P9038; P9058

== ENCOUNTER 2021-03-03 02:00 | Inpatient (IN) | payer OTHER ==
[2021-03-03] MEDS ORDERED: SODIUM CHLORIDE 1,000 ML IV STA (02:32)
[2021-03-03] MEDS ORDERED: PANTOPRAZOLE SODIUM 40 MG VIAL IVPUSH ONE ×2 (03:58→20:01)
[2021-03-03] MEDS ORDERED: PANTOPRAZOLE SODIUM 40 MG VIAL ONE (04:00)
[2021-03-03 04:12] LABS: INR 1.21 (0.83-1.09); PROTHROMBIN TIME (PATIENT) 14.8 SEC (9.7-13.0)
[2021-03-03 04:20] LABS: BASO % 0.7 % (0-2.0); CHLORIDE 116 mmol/L (98-107); EOS % 0.3 % (0-4.5); HEMATOCRIT 6.9 % (32.4-45.2); LYMPH % 31.8 % (8-40); MCHC 28.7 g/dl (32.0-36.0); MEAN CELL VOLUME 64.1 fl (80-96); MEAN PLT VOLUME 7.7 fl (7.5-11.1); MONO % 5.3 % (3.8-10.2); NEUT % 61.9 % (42.8-82.8); PLATELET COUNT 192 10^3/uL (134-434); RBC 1.08 M/mm3 (3.60-5.2); RDW 40.4 % (11.6-15.6); SODIUM 145 mmol/L (136-145); WHITE BLOOD COUNT 3.1 K/mm3 (4.0-10.0)
[2021-03-03 04:24] LABS: ALBUMIN 2.2 g/dl (3.4-5.0); ANION GAP 7 MMOL/L (8-16); BLOOD UREA NITROGEN 15.7 mg/dL (7-18); CO2 22 mmol/L (21-32); GLUCOSE,RANDOM 113 mg/dL (74-106)
[2021-03-03 04:27] LABS: CREATININE 0.4 mg/dL (0.55-1.3); SGOT/AST 9 U/L (15-37); SGPT/ALT 13 U/L (13-61)
[2021-03-03 04:28] LABS: BILIRUBIN,TOTAL 0.3 mg/dL (0.2-1); PHOSPHOROUS 2.5 mg/dL (2.5-4.9); TOT PROT 3.9 g/dl (6.4-8.2)
[2021-03-03 04:29] LABS: MCH 18.4 pg (25.7-33.7)
[2021-03-03 04:30] LABS: ALK PHOS 66 U/L (45-117)
[2021-03-03] MEDS ORDERED: methylPREDNISolone NA SUCC 40 MG/1 ML VIAL IVPUSH ONE (04:44)
[2021-03-03] MEDS ORDERED: methylPREDNISolone NA SUCC 40 MG/1 ML VIAL ONE (04:54)
[2021-03-03 05:08] LABS: CALCIUM 6.6 mg/dL (8.5-10.1)
[2021-03-03] MEDS ORDERED: LIDOCAINE VISCOUS 2% ORAL/TOP 100 ML BOTTLE MM ONE (05:10)
[2021-03-03 05:59] LABS: ANISOCYTOSIS 2+; MACROCYTOSIS 0; OVALOCYTE 1+; PLATELET ESTIMATE NORMAL; TARGET CELLS 1+; TEAR DROP CELLS 1+
[2021-03-03] MEDS: PANTOPRAZOLE SODIUM 80 MG in SODIUM CHLORIDE 100 ML IVPB SCH ×2 (06:18→15:42)
[2021-03-03] MEDS ORDERED: CALCIUM GLUCONATE 10% - 1,000 MG/10 ML VIAL IVPB ONE (06:34)
[2021-03-03 08:51] LABS: CHLORIDE 117 mmol/L (98-107); SODIUM 145 mmol/L (136-145)
[2021-03-03 08:52] LABS: ALBUMIN 2.3 g/dl (3.4-5.0)
[2021-03-03 08:54] LABS: ANION GAP 5 MMOL/L (8-16); BLOOD UREA NITROGEN 16.7 mg/dL (7-18); CO2 22 mmol/L (21-32); GLUCOSE,RANDOM 116 mg/dL (74-106); MAGNESIUM 2.1 mg/dL (1.8-2.4)
[2021-03-03 08:56] LABS: CREATININE 0.4 mg/dL (0.55-1.3); PHOSPHOROUS 2.4 mg/dL (2.5-4.9); SGOT/AST 12 U/L (15-37)
[2021-03-03 08:57] LABS: BILIRUBIN,TOTAL 1.4 mg/dL (0.2-1); TOT PROT 4.2 g/dl (6.4-8.2)
[2021-03-03 09:00] LABS: ALK PHOS 69 U/L (45-117)
[2021-03-03] MEDS: MUPIROCIN 2% TOPICAL OINTMENT FOR DECOLONIZATION NS SCH ×2 (11:09→21:57)
[2021-03-03] MEDS: MAG HYDROX/ALH/SMC/DPHA/LIDO 240 ML MOUTHWASH MM SCH ×3 (11:11→23:23)
[2021-03-03 11:59] LABS: BASO % 0.1 % (0-2.0); EOS % 0.1 % (0-4.5); HEMATOCRIT 18.2 % (32.4-45.2); LYMPH % 16.7 % (8-40); MCH 25.8 pg (25.7-33.7); MCHC 32.9 g/dl (32.0-36.0); MEAN CELL VOLUME 78.4 fl (80-96); MEAN PLT VOLUME 7.8 fl (7.5-11.1); MONO % 1.8 % (3.8-10.2); NEUT % 81.3 % (42.8-82.8); PLATELET COUNT 199 10^3/uL (134-434); RBC 2.32 M/mm3 (3.60-5.2); RDW 28.5 % (11.6-15.6); WHITE BLOOD COUNT 4.2 K/mm3 (4.0-10.0)
[2021-03-03 12:13] LABS: SGPT/ALT 14 U/L (13-61)
[2021-03-03 12:16] LABS: CALCIUM 6.9 mg/dL (8.5-10.1)
[2021-03-03] MEDS ORDERED: ACETAMINOPHEN 650 MG/20.3 ML ORAL SOLUTION (CUPS) PO PRN (12:16)
[2021-03-03 15:10] LABS: LDH 131 U/L (84-246)
[2021-03-03] MEDS ORDERED: PT OWN MED DRAWER 7, Y5N ONE ×2 (15:25→21:48)
[2021-03-03] MEDS ORDERED: BISACODYL 5 MG TABLET.DR (FP) PO ONE ×2 (16:00→16:45)
[2021-03-03] MEDS ORDERED: ACETAMINOPHEN 325 MG TABLET (FP) ONE (16:41)
[2021-03-03] MEDS ORDERED: PEG 3350/NA SULF BICARB CL/KCL 4000 ML SOLN.RECON PO ONE (17:00)
[2021-03-03] MEDS: ACETAMINOPHEN 325 MG TABLET (FP) PO PRN (17:28)
[2021-03-03 21:56] LABS: HEMATOCRIT 16.6 % (32.4-45.2); MCH 26.8 pg (25.7-33.7); MCHC 33.3 g/dl (32.0-36.0); MEAN CELL VOLUME 80.5 fl (80-96); MEAN PLT VOLUME 8.1 fl (7.5-11.1); PLATELET COUNT 166 10^3/uL (134-434); RBC 2.06 M/mm3 (3.60-5.2); RDW 25.7 % (11.6-15.6); WHITE BLOOD COUNT 6.2 K/mm3 (4.0-10.0)
[2021-03-03] MEDS: CHLORHEXIDINE GLUCONATE 4% CLEANSER FOR DECOLONIZATION TP SCH (21:58)
[2021-03-03 22:06] LABS: HEMOGLOBIN 5.5 GM/dL (10.7-15.3)
[2021-03-04] MEDS: MAG HYDROX/ALH/SMC/DPHA/LIDO 240 ML MOUTHWASH MM SCH ×3 (05:21→17:07)
[2021-03-04 05:56] LABS: BASO % 0.2 % (0-2.0); EOS % 1.7 % (0-4.5); HEMATOCRIT 20.6 % (32.4-45.2); MCHC 33.4 g/dl (32.0-36.0); MEAN CELL VOLUME 80.9 fl (80-96); MEAN PLT VOLUME 8.1 fl (7.5-11.1); MONO % 4.8 % (3.8-10.2); NEUT % 46.3 % (42.8-82.8); PLATELET COUNT 141 10^3/uL (134-434); RBC 2.55 M/mm3 (3.60-5.2); RDW 16.2 % (11.6-15.6)
[2021-03-04 05:59] LABS: HEMOGLOBIN 6.9 GM/dL (10.7-15.3)
[2021-03-04 06:00] LABS: INR 1.11 (0.83-1.09); PROTHROMBIN TIME (PATIENT) 13.4 SEC (9.7-13.0)
[2021-03-04 06:07] LABS: CALCIUM 7.3 mg/dL (8.5-10.1)
[2021-03-04 06:08] LABS: BLOOD UREA NITROGEN 23.4 mg/dL (7-18)
[2021-03-04 06:10] LABS: CREATININE 0.4 mg/dL (0.55-1.3)
[2021-03-04 06:12] LABS: TOT PROT 3.8 g/dl (6.4-8.2)
[2021-03-04] MEDS: PANTOPRAZOLE 40 MG TABLET PO SCH ×3 (10:22→10:37)
[2021-03-04] MEDS: MUPIROCIN 2% TOPICAL OINTMENT FOR DECOLONIZATION NS SCH ×2 (10:22→22:30)
[2021-03-04 16:32] LABS: BASO % 1.1 % (0-2.0); EOS % 2.1 % (0-4.5); HEMATOCRIT 21.8 % (32.4-45.2); HEMOGLOBIN 7.5 GM/dL (10.7-15.3); LYMPH % 35.9 % (8-40); MCHC 34.3 g/dl (32.0-36.0); MEAN CELL VOLUME 81.9 fl (80-96); MEAN PLT VOLUME 7.7 fl (7.5-11.1); MONO % 5.1 % (3.8-10.2); NEUT % 55.8 % (42.8-82.8); PLATELET COUNT 93 10^3/uL (134-434); RBC 2.67 M/mm3 (3.60-5.2); RDW 15.4 % (11.6-15.6); WHITE BLOOD COUNT 3.3 K/mm3 (4.0-10.0)
[2021-03-04] MEDS: CHLORHEXIDINE GLUCONATE 4% CLEANSER FOR DECOLONIZATION TP SCH (22:30)
[2021-03-04] MEDS ORDERED: PT OWN MED DRAWER 7, Y5N ONE (22:39)
[2021-03-04] MEDS: ACETAMINOPHEN 325 MG TABLET (FP) PO PRN (22:40)
[2021-03-04] MEDS: hydrOXYzine PAMOATE 25 MG CAPSULE (FP) PO PRN (22:41)
[2021-03-05] MEDS: MAG HYDROX/ALH/SMC/DPHA/LIDO 240 ML MOUTHWASH MM SCH ×4 (00:08→19:10)
[2021-03-05 07:08] LABS: HEMATOCRIT 21.5 % (32.4-45.2); HEMOGLOBIN 7.1 GM/dL (10.7-15.3); MCH 27.3 pg (25.7-33.7); MEAN CELL VOLUME 82.5 fl (80-96); MEAN PLT VOLUME 8.1 fl (7.5-11.1); PLATELET COUNT 79 10^3/uL (134-434); RBC 2.61 M/mm3 (3.60-5.2); RDW 15.8 % (11.6-15.6); WHITE BLOOD COUNT 4.3 K/mm3 (4.0-10.0)
[2021-03-05 07:17] LABS: CHLORIDE 115 mmol/L (98-107); SODIUM 142 mmol/L (136-145)
[2021-03-05 07:23] LABS: ANION GAP 4 MMOL/L (8-16); BLOOD UREA NITROGEN 12.8 mg/dL (7-18); CO2 23 mmol/L (21-32); GLUCOSE,RANDOM 75 mg/dL (74-106)
[2021-03-05 07:26] LABS: CREATININE 0.3 mg/dL (0.55-1.3)
[2021-03-05 07:33] LABS: CALCIUM 6.9 mg/dL (8.5-10.1)
[2021-03-05 09:55] LABS: PHOSPHOROUS 2.8 mg/dL (2.5-4.9)
[2021-03-05 10:43] LABS: RETICULOCYTES 1.82 % (0.5-1.5)
[2021-03-05] MEDS ORDERED: DOXEPIN HCL 50 MG CAPSULE PO SCH ×2 (10:45→10:58)
[2021-03-05] MEDS ORDERED: PT OWN MED DRAWER 7, Y5N ONE ×4 (12:29→22:56)
[2021-03-05] MEDS: PANTOPRAZOLE 40 MG TABLET PO SCH (12:30)
[2021-03-05] MEDS: GABAPENTIN 300 MG CAPSULE PO SCH ×2 (15:59→21:11)
[2021-03-05] MEDS: DOXEPIN HCL 25 MG CAPSULE PO SCH (21:11)
[2021-03-05] MEDS: hydrOXYzine PAMOATE 25 MG CAPSULE (FP) PO PRN (22:30)
[2021-03-06] MEDS: MAG HYDROX/ALH/SMC/DPHA/LIDO 240 ML MOUTHWASH MM SCH ×5 (00:42→23:15)
[2021-03-06] MEDS: GABAPENTIN 300 MG CAPSULE PO SCH ×3 (06:04→21:31)
[2021-03-06] MEDS ORDERED: diphenhydrAMINE HCL 25 MG CAPSULE (FP) PO PRN (07:46)
[2021-03-06] MEDS ORDERED: PEG 3350/NA SULF BICARB CL/KCL 4000 ML SOLN.RECON PO ONE (09:00)
[2021-03-06] MEDS: PANTOPRAZOLE 40 MG TABLET PO SCH (09:59)
[2021-03-06] MEDS: SERTRALINE HCL 50 MG TABLET (FP) PO SCH ×2 (09:59→10:03)
[2021-03-06 10:40] LABS: BASO % 1.4 % (0-2.0); EOS % 2.7 % (0-4.5); HEMATOCRIT 21.7 % (32.4-45.2); HEMOGLOBIN 7.1 GM/dL (10.7-15.3); LYMPH % 41.8 % (8-40); MCH 27.6 pg (25.7-33.7); MCHC 32.5 g/dl (32.0-36.0); MEAN CELL VOLUME 84.7 fl (80-96); MEAN PLT VOLUME 7.9 fl (7.5-11.1); MONO % 8.6 % (3.8-10.2); NEUT % 45.5 % (42.8-82.8); RBC 2.56 M/mm3 (3.60-5.2); RDW 16.4 % (11.6-15.6); WHITE BLOOD COUNT 2.7 K/mm3 (4.0-10.0)
[2021-03-06 11:01] LABS: BLOOD UREA NITROGEN 6.4 mg/dL (7-18); CALCIUM 7.2 mg/dL (8.5-10.1)
[2021-03-06 11:05] LABS: CREATININE 0.4 mg/dL (0.55-1.3); PHOSPHOROUS 2.4 mg/dL (2.5-4.9)
[2021-03-06 11:37] LABS: PLATELET COUNT 50 10^3/uL (134-434)
[2021-03-06] MEDS ORDERED: POTASSIUM CHLORIDE TABS 20 MEQ TABLET.ER (FP) PO ONE (12:15)
[2021-03-06] MEDS ORDERED: BISACODYL 5 MG TABLET.DR (FP) PO ONE ×2 (17:00→18:00)
[2021-03-06] MEDS ORDERED: POLYETHYLENE GLYCOL 3350 255 GM BTL PO ONE (18:00)
[2021-03-06] MEDS ORDERED: BUPIVACAINE HCL/PF 0.25% (2.5MG/ML) 10 ML VIAL ONE (21:04)
[2021-03-06] MEDS ORDERED: PT OWN MED DRAWER 7, Y5N ONE ×2 (21:14→23:14)
[2021-03-06] MEDS: hydrOXYzine PAMOATE 25 MG CAPSULE (FP) PO PRN (21:31)
[2021-03-06] MEDS: DOXEPIN HCL 25 MG CAPSULE PO SCH (21:32)
[2021-03-07] MEDS: MAG HYDROX/ALH/SMC/DPHA/LIDO 240 ML MOUTHWASH MM SCH ×4 (05:48→23:35)
[2021-03-07] MEDS: GABAPENTIN 300 MG CAPSULE PO SCH ×3 (05:49→21:23)
[2021-03-07] MEDS ORDERED: LACTATED RINGERS SOLUTION 1000 ML INFUS.BAG IV ONE (09:35)
[2021-03-07 10:10] LABS: HEMATOCRIT 20.5 % (32.4-45.2); MCH 27.5 pg (25.7-33.7); MCHC 33.2 g/dl (32.0-36.0); MEAN CELL VOLUME 82.8 fl (80-96); MEAN PLT VOLUME 7.8 fl (7.5-11.1); RBC 2.47 M/mm3 (3.60-5.2); RDW 16.2 % (11.6-15.6)
[2021-03-07 10:33] LABS: CHLORIDE 114 mmol/L (98-107); SODIUM 144 mmol/L (136-145)
[2021-03-07 10:35] LABS: ALBUMIN 2.2 g/dl (3.4-5.0); ANION GAP 5 MMOL/L (8-16); CALCIUM 7.1 mg/dL (8.5-10.1); CO2 25 mmol/L (21-32); MAGNESIUM 2.2 mg/dL (1.8-2.4)
[2021-03-07 10:36] LABS: GLUCOSE,RANDOM 82 mg/dL (74-106)
[2021-03-07 10:38] LABS: SGOT/AST 26 U/L (15-37); SGPT/ALT 38 U/L (13-61)
[2021-03-07 10:39] LABS: CREATININE 0.3 mg/dL (0.55-1.3); HEMOGLOBIN 6.8 GM/dL (10.7-15.3); PHOSPHOROUS 2.9 mg/dL (2.5-4.9); WHITE BLOOD COUNT 1.9 K/mm3 (4.0-10.0)
[2021-03-07 10:40] LABS: BILIRUBIN,TOTAL 0.6 mg/dL (0.2-1); PLATELET COUNT 32 10^3/uL (134-434)
[2021-03-07 10:41] LABS: ALK PHOS 77 U/L (45-117)
[2021-03-07 11:08] LABS: ERYTHROCYTE SEDIMENTATION RATE 7 mm/hr (0-20)
[2021-03-07] MEDS: PANTOPRAZOLE 40 MG TABLET PO SCH (15:26)
[2021-03-07] MEDS: SERTRALINE HCL 25 MG TABLET (FP) PO SCH (15:26)
[2021-03-07] MEDS ORDERED: methylPREDNISolone NA SUCC 40 MG/1 ML VIAL IVPUSH ONE (17:15)
[2021-03-07] MEDS: ACETAMINOPHEN 325 MG TABLET (FP) PO PRN (19:05)
[2021-03-07] MEDS ORDERED: PT OWN MED DRAWER 7, Y5N ONE (21:06)
[2021-03-07] MEDS: DOXEPIN HCL 25 MG CAPSULE PO SCH (21:23)
[2021-03-07] MEDS: hydrOXYzine PAMOATE 25 MG CAPSULE (FP) PO PRN (22:18)
[2021-03-07] MEDS: SODIUM CHLORIDE 0.45% 1,000 ML IV SCH (22:19)
[2021-03-08] MEDS: GABAPENTIN 300 MG CAPSULE PO SCH ×3 (06:00→21:40)
[2021-03-08] MEDS: MAG HYDROX/ALH/SMC/DPHA/LIDO 240 ML MOUTHWASH MM SCH ×4 (06:00→23:04)
[2021-03-08 10:30] LABS: EOS % 0.8 % (0-4.5); HEMATOCRIT 29.5 % (32.4-45.2); HEMOGLOBIN 9.7 GM/dL (10.7-15.3); LYMPH % 24.1 % (8-40); MCH 28.3 pg (25.7-33.7); MCHC 32.8 g/dl (32.0-36.0); MEAN CELL VOLUME 86.4 fl (80-96); MEAN PLT VOLUME 8.2 fl (7.5-11.1); MONO % 5.9 % (3.8-10.2); NEUT % 68.2 % (42.8-82.8); PLATELET COUNT 39 10^3/uL (134-434); RBC 3.42 M/mm3 (3.60-5.2); RDW 15.1 % (11.6-15.6)
[2021-03-08] MEDS: SERTRALINE HCL 25 MG TABLET (FP) PO SCH (10:30)
[2021-03-08] MEDS: PANTOPRAZOLE 40 MG TABLET PO SCH (10:30)
[2021-03-08 10:37] LABS: ALBUMIN 2.5 g/dl (3.4-5.0); CALCIUM 7.6 mg/dL (8.5-10.1)
[2021-03-08 10:38] LABS: MAGNESIUM 2.1 mg/dL (1.8-2.4)
[2021-03-08 10:40] LABS: CREATININE 0.5 mg/dL (0.55-1.3); PHOSPHOROUS 1.9 mg/dL (2.5-4.9)
[2021-03-08 10:41] LABS: BILIRUBIN,TOTAL 0.6 mg/dL (0.2-1); TOT PROT 4.8 g/dl (6.4-8.2)
[2021-03-08] MEDS ORDERED: NAPH,MB-DB/K PH,MBDB POWDER PACKET PO ONE (11:53)
[2021-03-08] MEDS ORDERED: CYANOCOBALAMIN (VITAMIN B-12) 1000 MCG/1 ML VIAL IM SCH (13:00)
[2021-03-08] MEDS: SODIUM CHLORIDE 0.45% 1,000 ML IV SCH (15:34)
[2021-03-08] MEDS: hydrOXYzine PAMOATE 25 MG CAPSULE (FP) PO PRN (21:40)
[2021-03-08] MEDS: DOXEPIN HCL 25 MG CAPSULE PO SCH (21:40)
[2021-03-09] MEDS: GABAPENTIN 300 MG CAPSULE PO SCH ×3 (06:08→21:54)
[2021-03-09] MEDS: MAG HYDROX/ALH/SMC/DPHA/LIDO 240 ML MOUTHWASH MM SCH ×4 (06:08→23:16)
[2021-03-09] MEDS ORDERED: PT OWN MED DRAWER 7, Y5N ONE ×4 (06:14→23:14)
[2021-03-09 09:36] LABS: HEMATOCRIT 27.8 % (32.4-45.2); HEMOGLOBIN 9.1 GM/dL (10.7-15.3); RBC 3.17 M/mm3 (3.60-5.2); WHITE BLOOD COUNT 5.1 K/mm3 (4.0-10.0)
[2021-03-09 09:37] LABS: BASO % 0.5 % (0-2.0); EOS % 1.8 % (0-4.5); LYMPH % 33.8 % (8-40); MCH 28.6 pg (25.7-33.7); MCHC 32.7 g/dl (32.0-36.0); MEAN CELL VOLUME 87.5 fl (80-96); MEAN PLT VOLUME 8.4 fl (7.5-11.1); MONO % 3.7 % (3.8-10.2); NEUT % 60.2 % (42.8-82.8); PLATELET COUNT 58 10^3/uL (134-434)
[2021-03-09 09:59] LABS: CALCIUM 7.4 mg/dL (8.5-10.1)
[2021-03-09 10:00] LABS: BLOOD UREA NITROGEN 12.3 mg/dL (7-18); MAGNESIUM 2.2 mg/dL (1.8-2.4)
[2021-03-09 10:03] LABS: CREATININE 0.4 mg/dL (0.55-1.3); PHOSPHOROUS 2.5 mg/dL (2.5-4.9)
[2021-03-09] MEDS: PANTOPRAZOLE 40 MG TABLET PO SCH (10:49)
[2021-03-09] MEDS: SERTRALINE HCL 25 MG TABLET (FP) PO SCH (10:49)
[2021-03-09 10:59] LABS: PLATELET ESTIMATE DECREASED
[2021-03-09] MEDS: ACETAMINOPHEN 325 MG TABLET (FP) PO PRN (13:41)
[2021-03-09] MEDS: SODIUM CHLORIDE 0.45% 1,000 ML IV SCH (13:43)
[2021-03-09 17:41] LABS: PH,URINE 6.5 (5.0-8.0); URINE APPEARANCE CLEAR; URINE BILIRUBIN NEGATIVE (NEGATIVE); URINE COLOR YELLOW; URINE GLUCOSE (UA) NEGATIVE (NEGATIVE); URINE KETONE NEGATIVE (NEGATIVE); URINE LEUK ESTERASE NEGATIVE (NEGATIVE); URINE NITRITE NEGATIVE (NEGATIVE); URINE PROTEIN NEGATIVE (NEGATIVE); URINE UROBILINOGEN 0.2 mg/dL (0.2-1.0)
[2021-03-09] MEDS: DOXEPIN HCL 25 MG CAPSULE PO SCH (21:54)
[2021-03-10] MEDS: MAG HYDROX/ALH/SMC/DPHA/LIDO 240 ML MOUTHWASH MM SCH ×3 (05:37→18:16)
[2021-03-10] MEDS: GABAPENTIN 300 MG CAPSULE PO SCH ×3 (05:37→21:24)
[2021-03-10] MEDS ORDERED: PT OWN MED DRAWER 7, Y5N ONE ×2 (06:15→22:08)
[2021-03-10 09:01] LABS: BASO % 0.9 % (0-2.0); EOS % 3.1 % (0-4.5); HEMATOCRIT 26.5 % (32.4-45.2); HEMOGLOBIN 8.7 GM/dL (10.7-15.3); LYMPH % 28.1 % (8-40); MCH 28.6 pg (25.7-33.7); MCHC 32.8 g/dl (32.0-36.0); MEAN CELL VOLUME 87.2 fl (80-96); MEAN PLT VOLUME 8.6 fl (7.5-11.1); MONO % 5.5 % (3.8-10.2); NEUT % 62.4 % (42.8-82.8); PLATELET COUNT 90 10^3/uL (134-434); RBC 3.04 M/mm3 (3.60-5.2); RDW 15.8 % (11.6-15.6); WHITE BLOOD COUNT 4.8 K/mm3 (4.0-10.0)
[2021-03-10 09:25] LABS: CALCIUM 7.3 mg/dL (8.5-10.1); MAGNESIUM 2.2 mg/dL (1.8-2.4)
[2021-03-10 09:26] LABS: BLOOD UREA NITROGEN 9.5 mg/dL (7-18)
[2021-03-10 09:29] LABS: CREATININE 0.3 mg/dL (0.55-1.3); PHOSPHOROUS 2.9 mg/dL (2.5-4.9)
[2021-03-10] MEDS: SERTRALINE HCL 25 MG TABLET (FP) PO SCH (09:31)
[2021-03-10] MEDS: PANTOPRAZOLE 40 MG TABLET PO SCH (09:31)
[2021-03-10 12:45] VITALS: BMI 26.1
[2021-03-10] MEDS ORDERED: BISACODYL 5 MG TABLET.DR (FP) PO ONE (16:00)
[2021-03-10] MEDS ORDERED: POLYETHYLENE GLYCOL 3350 255 GM BTL PO ONE (17:00)
[2021-03-10] MEDS: DOXEPIN HCL 25 MG CAPSULE PO SCH (21:24)
[2021-03-10] MEDS: ACETAMINOPHEN 325 MG TABLET (FP) PO PRN (22:21)
[2021-03-11] MEDS: MAG HYDROX/ALH/SMC/DPHA/LIDO 240 ML MOUTHWASH MM SCH ×4 (00:34→19:03)
[2021-03-11] MEDS: GABAPENTIN 300 MG CAPSULE PO SCH ×2 (05:17→13:47)
[2021-03-11 07:40] LABS: BASO % 1.1 % (0-2.0); EOS % 4.4 % (0-4.5); HEMOGLOBIN 9.1 GM/dL (10.7-15.3); LYMPH % 30.5 % (8-40); MCH 28.8 pg (25.7-33.7); MCHC 32.4 g/dl (32.0-36.0); MEAN CELL VOLUME 88.9 fl (80-96); MEAN PLT VOLUME 8.5 fl (7.5-11.1); MONO % 4.7 % (3.8-10.2); NEUT % 59.3 % (42.8-82.8); PLATELET COUNT 174 10^3/uL (134-434); RBC 3.15 M/mm3 (3.60-5.2); RDW 15.6 % (11.6-15.6); WHITE BLOOD COUNT 3.7 K/mm3 (4.0-10.0)
[2021-03-11 08:00] LABS: CALCIUM 7.1 mg/dL (8.5-10.1)
[2021-03-11 08:01] LABS: BLOOD UREA NITROGEN 4.9 mg/dL (7-18); MAGNESIUM 2.2 mg/dL (1.8-2.4)
[2021-03-11 08:04] LABS: CREATININE 0.3 mg/dL (0.55-1.3)
[2021-03-11 08:05] LABS: PHOSPHOROUS 4.5 mg/dL (2.5-4.9)
[2021-03-11 08:53] LABS: INR 1.08 (0.83-1.09)
[2021-03-11] MEDS: SERTRALINE HCL 25 MG TABLET (FP) PO SCH (09:15)
[2021-03-11] MEDS: PANTOPRAZOLE 40 MG TABLET PO SCH (09:15)
[2021-03-11] MEDS ORDERED: PT OWN MED DRAWER 7, Y5N ONE (13:37)
[2021-03-11 18:15] VITALS: BP 117/76; PULSE 69; TEMP 98.3
== END 2021-03-11 19:02 | disposition home or self-care (01) | DRG 253 ==
LOC: JER 02:00 → JERBED 04:21 → JICU 08:39 → J5S 03-05 08:27
PROVIDERS: ADMIT Internal Medicine Pulmonary Disease; ATTEND Internal Medicine
PROC: 0DB68ZX Excision of Stomach, Via Natural or Artificial Opening Endoscopic, Diagnostic (ICD-10-PCS; 2021-03-04)
PROC: 0DBA8ZX Excision of Jejunum, Via Natural or Artificial Opening Endoscopic, Diagnostic (ICD-10-PCS; principal; 2021-03-04 13:00)
PROC: 0DJD8ZZ Inspection of Lower Intestinal Tract, Via Natural or Artificial Opening Endoscopic (ICD-10-PCS; 2021-03-11)
DX: K92.2 Gastrointestinal hemorrhage, unspecified (principal); R21 Rash and other nonspecific skin eruption; D62 Acute posthemorrhagic anemia; D61.818 Other pancytopenia; K21.9 Gastro-esophageal reflux disease without esophagitis; D50.9 Iron deficiency anemia, unspecified; G25.81 Restless legs syndrome; K44.9 Diaphragmatic hernia without obstruction or gangrene; F32.9 Major depressive disorder, single episode, unspecified; K64.8 Other hemorrhoids; D58.9 Hereditary hemolytic anemia, unspecified; E88.09 Other disorders of plasma-protein metabolism, not elsewhere classified; R16.1 Splenomegaly, not elsewhere classified; Z98.84 Bariatric surgery status
CPT/HCPCS: 36415; 36430; 36511; 71045-TC-FY; 74177-TC; 80048; 80053; 81003; 82272; 82330; 82550; 82607; 82728; 82746; 82747; 83010; 83540; 83550; 83615; 83735; 84100; 84439; 84443; 84484; 84703; 85014; 85025; 85027; 85032; 85045; 85362; 85379; 85610; 85651; 85730; 86038; 86140; 86160; 86162; 86225; 86850; 86880; 86900; 86901; 86922; 87040; 87799; 88300-TC; 88305-TC; 93005; 93010; 99285-25; C9803; P9016; P9038; P9058; Q9967; U0003; U0005

== ENCOUNTER 2021-03-25 10:01 | Day surgery (SDC) | payer OTHER ==
[2021-03-25] MEDS ORDERED: ALBUTEROL SO4 0.5 % INH SOLN 2.5 MG/0.5 ML VIAL.NEB. NEB PRN (10:29)
[2021-03-25] MEDS ORDERED: EPINEPHrine 1:1,000 0.3 MG/0.3 ML SYR IM PRN (10:31)
[2021-03-25] MEDS ORDERED: HYDROCORTISONE SOD SUCCINATE 100 MG/2 ML VIAL IVPUSH PRN (10:31)
[2021-03-25] MEDS ORDERED: ALBUTEROL SO4 0.083% IH SOL 2.5 MG/3 ML VIAL.NEB. NEB PRN (10:35)
[2021-03-25] MEDS ORDERED: FERRIC CARBOXYMALTOSE 750 MG in SODIUM CHLORIDE 250 ML IVPB ONE (11:00)
[2021-03-25] MEDS ORDERED: DEXAMETHASONE SOD PHOSPHATE 4 MG/1 ML VIAL IVPB ONE (11:07)
[2021-03-25] MEDS ORDERED: DIPHENHYDRAMINE IVPB ONE (11:30)
[2021-03-25] MEDS ORDERED: DEXAMETHASONE IVPB ONE (11:30)
[2021-03-25] MEDS ORDERED: SODIUM CHLORIDE IVPB ONE (11:30)
[2021-03-25 15:05] VITALS: TEMP 98.2
[2021-03-25 15:30] VITALS: BP 145/82; PULSE 85
== END 2021-03-25 13:30 | disposition home or self-care (01) ==
LOC: JONCNONCHE 10:01
PROVIDERS: ATTEND Internal Medicine Hematology & Oncology
PROC: 3E033GC Introduction of Other Therapeutic Substance into Peripheral Vein, Percutaneous Approach (ICD-10-PCS; principal; 2021-03-25)
DX: D64.9 Anemia, unspecified (principal)
CPT/HCPCS: 96365; J1100; J1439

== ENCOUNTER 2021-04-08 07:35 | Day surgery (SDC) | payer OTHER ==
[2021-04-08] MEDS ORDERED: FERRIC CARBOXYMALTOSE 750 MG in SODIUM CHLORIDE 250 ML IVPB ONE (10:00)
[2021-04-08] MEDS ORDERED: DEXAMETHASONE SOD PHOSPHATE 20 MG/5 ML VIAL IVPB ONE (15:30)
[2021-04-08] MEDS ORDERED: DEXTROSE 5% IVPB ONE ×2 (16:00→16:30)
[2021-04-08] MEDS ORDERED: DIPHENHYDRAMINE IVPB ONE ×2 (16:00→16:30)
[2021-04-08] MEDS ORDERED: WATER IVPB ONE ×2 (16:00→16:30)
[2021-04-08] MEDS ORDERED: DEXAMETHASONE INJECTION 8 MG in DEXTROSE 5%-WATER - 50 ML IVPUSH ONE (16:00)
[2021-04-08] MEDS ORDERED: DEXAMETHASONE IVPB ONE (16:30)
[2021-04-08 17:26] VITALS: TEMP 98.6
[2021-04-08 18:11] VITALS: BP 148/78; PULSE 66
== END 2021-04-08 18:20 | disposition home or self-care (01) ==
LOC: JONCNONCHE 07:35
PROVIDERS: ATTEND Internal Medicine Hematology & Oncology
PROC: 3E033GC Introduction of Other Therapeutic Substance into Peripheral Vein, Percutaneous Approach (ICD-10-PCS; principal; 2021-04-08)
DX: D64.9 Anemia, unspecified (principal)
CPT/HCPCS: 96365; J1439

== ENCOUNTER 2023-08-26 14:06 | Emergency (ER) | payer OTHER ==
[2023-08-26 14:20] VITALS: BP 153/82; PULSE 83; RESP 16; TEMP 98.2; BMI 28.2
[2023-08-26] MEDS ORDERED: METOCLOPRAMIDE HCL INJECTION 10 MG/2 ML VIAL IVPUSH ONE (15:31)
[2023-08-26] MEDS ORDERED: SODIUM CHLORIDE 1,000 ML IV STA (15:31)
[2023-08-26] MEDS ORDERED: morphine CARPU-JECT 2 MG/1 ML DISP.SYRIN IVPUSH ONE (15:31)
[2023-08-26] MEDS ORDERED: METOCLOPRAMIDE HCL INJECTION 10 MG/2 ML VIAL ONE (16:47)
[2023-08-26 16:57] LABS: BASO % 0.3 % (0-2.0); EOS % 6.4 % (0-4.5); HEMATOCRIT 40.4 % (32.4-45.2); HEMOGLOBIN 13.3 GM/dL (10.7-15.3); LYMPH % 13.3 % (8-40); MCH 28.6 pg (25.7-33.7); MEAN CELL VOLUME 86.9 fl (80-96); MEAN PLT VOLUME 7.2 fl (7.5-11.1); MONO % 4.7 % (3.8-10.2); NEUT % 75.3 % (42.8-82.8); PLATELET COUNT 340 10^3/uL (134-434); RBC 4.65 M/mm3 (3.60-5.2); RDW 15.7 % (11.6-15.6); WHITE BLOOD COUNT 8.1 K/mm3 (4.0-10.0)
[2023-08-26 17:08] LABS: INR 1.03 (0.83-1.09)
[2023-08-26 17:10] LABS: ACTIVATED PTT 31.2 SECONDS (25.2-36.5)
[2023-08-26 17:14] LABS: POTASSIUM 4.1 mmol/L (3.5-5.1)
[2023-08-26 17:16] LABS: CALCIUM 8.4 mg/dL (8.5-10.1)
[2023-08-26 17:17] LABS: ALBUMIN 3.2 g/dl (3.4-5.0); BLOOD UREA NITROGEN 12.1 mg/dL (7-18)
[2023-08-26 17:19] LABS: CREATININE 0.5 mg/dL (0.55-1.3)
[2023-08-26 17:19] LABS: EPI CELLS >36 /uL (0-25.1); HYALINE CASTS 4 /uL (0-3.1); PH,URINE 5.5 (5.0-8.0); URINE APPEARANCE CLEAR; URINE BACTERIA 90 /uL (0-1359); URINE BILIRUBIN NEGATIVE (NEGATIVE); URINE COLOR DK YELLOW; URINE GLUCOSE (UA) NEGATIVE (NEGATIVE); URINE KETONE TRACE (NEGATIVE); URINE LEUK ESTERASE TRACE (NEGATIVE); URINE NITRITE NEGATIVE (NEGATIVE); URINE PROTEIN 1+ (NEGATIVE); URINE RBC 8 /uL (0-23.9); URINE WBC 24 /uL (0-25.8)
[2023-08-26 17:21] LABS: BILIRUBIN,TOTAL 0.4 mg/dL (0.2-1); TOT PROT 6.3 g/dl (6.4-8.2)
[2023-08-26 18:08] LABS: URINE CRYSTALS MODERATE /hpf
== END 2023-08-26 20:04 | disposition home or self-care (01) ==
LOC: JER 14:06
PROC: 3E033GC Introduction of Other Therapeutic Substance into Peripheral Vein, Percutaneous Approach (ICD-10-PCS; principal; 2023-08-26)
PROC: 3E033GC Introduction of Other Therapeutic Substance into Peripheral Vein, Percutaneous Approach (ICD-10-PCS; 2023-08-26)
PROC: 3E0337Z Introduction of Electrolytic and Water Balance Substance into Peripheral Vein, Percutaneous Approach (ICD-10-PCS; 2023-08-26)
DX: R10.13 Epigastric pain (principal); R10.33 Periumbilical pain
CPT/HCPCS: 36415; 74177-TC; 80053; 81003; 83605; 83690; 85025; 85610; 85730; 86850; 86900; 86901; 87086; 93005; 93010; 99285-25

== ENCOUNTER 2024-08-08 12:40 | Day surgery (SDC) | payer OTHER ==
[2024-08-08] MEDS: DEXAMETHASONE SODIUM PHOSPHATE 8 MG, DIPHENHYDRAMINE 25 MG in SODIUM CHLORIDE 100 ML IVPB ONE (12:49)
[2024-08-08] MEDS: FERRIC CARBOXYMALTOSE 750 MG in SODIUM CHLORIDE 250 ML IVPB ONE (13:44)
[2024-08-08 16:31] VITALS: BP 128/80; PULSE 82; RESP 20; TEMP 98.4
== END 2024-08-08 14:45 | disposition home or self-care (01) ==
LOC: J7W 12:40 → JONCCHEMO 12:40
PROVIDERS: ATTEND Nurse Practitioner Family
PROC: 3E033GC Introduction of Other Therapeutic Substance into Peripheral Vein, Percutaneous Approach (ICD-10-PCS; principal; 2024-08-08)
DX: D50.9 Iron deficiency anemia, unspecified (principal)
CPT/HCPCS: 96365; J1439

== ENCOUNTER 2024-08-15 12:34 | Day surgery (SDC) | payer OTHER ==
[2024-08-15] MEDS: ACETAMINOPHEN 325 MG TABLET (FP) PO ONE (12:41)
[2024-08-15] MEDS: SODIUM CHLORIDE IVPB ONE (12:48)
[2024-08-15] MEDS: DIPHENHYDRAMINE IVPB ONE (12:48)
[2024-08-15] MEDS: DEXAMETHASONE IVPB ONE (12:48)
[2024-08-15] MEDS: FERRIC CARBOXYMALTOSE 750 MG in SODIUM CHLORIDE 250 ML IVPB ONE (13:24)
[2024-08-15 16:55] VITALS: BP 124/85; PULSE 88; RESP 18; TEMP 98.4
== END 2024-08-15 14:40 | disposition home or self-care (01) ==
LOC: JONCCHEMO 12:34 → J7W 12:34 → JONCCHEMO 14:40
PROVIDERS: ATTEND Nurse Practitioner Family
PROC: 3E033GC Introduction of Other Therapeutic Substance into Peripheral Vein, Percutaneous Approach (ICD-10-PCS; principal; 2024-08-15)
DX: D50.9 Iron deficiency anemia, unspecified (principal)
CPT/HCPCS: 96365; J1100; J1439